=== PATIENT | male | born 1960 | race African-American/Black ===

== ENCOUNTER 2019-07-27 12:11 | Inpatient (IN) | payer OTHER ==
[~2019-07-27] VITALS: Ht 175.3 cm; Wt 83.7 kg
--- NOTE | 2019-07-27 12:28 | NUR ---
ED Nurse Note: Pt has been having flu-like symptoms: coughing with congestion, bodyache, headache x 1 week. Pt does NOT complain of fever recently. Hx of HIV. AOOx4, vital signs stable. Will cont to monitor. Addendum: 07/27/19 at 1309 by [facility] ED Nurse Note: Pt has been having flu-like symptoms: coughing without congestion, bodyache, headache x 1 week. Pt does NOT complain of fever recently. Hx of HIV. AOOx4, vital signs stable. Pain 8/10 at this time. Will cont to monitor.
--- NOTE | 2019-07-27 12:35 | NUR ---
ED Nurse Note: Patient walked into ED c/o flul cecil symptoms such as cough and increased weakness for the past week, patient is alert and oriented x4, denies any fever at time of arrival however is warm to touch, placed on a bottle blower, tachy at 105 heart rate, IV started on left ac 18 gauge, will wait for further orders
[2019-07-27 13:18] LABS: BASOPHILS % (AUTO) 1.3 % (0.0-2.0); EOSINOPHILS % (AUTO) 0.1 % (0.0-3.0); HEMATOCRIT 56.3 % (42.0-52.0); LYMPHOCYTES % (AUTO) 53.1 % (20.0-45.0); MEAN CORPUSCULAR VOLUME 89 FL (80-99); MONOCYTES % (AUTO) 6.6 % (1.0-10.0); NEUTROPHILS % (AUTO) 38.8 % (45.0-75.0); PLATELET COUNT 208 K/UL (150-450); RED BLOOD COUNT 6.33 M/UL (4.70-6.10); RED CELL DISTRIBUTION WIDTH 12.3 % (11.6-14.8); WHITE BLOOD COUNT 5.7 K/UL (4.8-10.8)
[2019-07-27 13:22] LABS: HEMOGLOBIN 18.8 G/DL (14.2-18.0)
[2019-07-27 13:28] LABS: INR 1.1 (0.9-1.1)
[2019-07-27 13:31] LABS: ANION GAP 9 mmol/L (5-15); BLOOD UREA NITROGEN 11 mg/dL (7-18); CALCIUM 8.9 MG/DL (8.5-10.1); CARBON DIOXIDE 27 MMOL/L (21-32); CHLORIDE 100 MMOL/L (98-107); CREATININE 1.4 MG/DL (0.55-1.30); POTASSIUM 3.9 MMOL/L (3.5-5.1); SODIUM 136 MMOL/L (136-145)
[2019-07-27 13:39] LABS: ALANINE AMINOTRANSFERASE 61 U/L (12-78); ALBUMIN/GLOBULIN RATIO 0.8 (1.0-2.7); ALKALINE PHOSPHATASE 77 U/L (46-116); ASPARTATE AMINO TRANSFERASE 61 U/L (15-37); BILIRUBIN,TOTAL 0.6 MG/DL (0.2-1.0)
[2019-07-27] MEDS ORDERED: Omnipaue 350mg/ml 100ml vial INJ PRN (13:45)
[2019-07-27] MEDS: Albuterol/Ipratropium 3ml neb HHN SCH ×3 (14:52→15:30)
--- NOTE | 2019-07-27 15:10 | Diagnostic Imaging Report ---
Indication: Chest pain Technique: Continuous helical transaxial imaging of the chest was obtained from the thoracic inlet to the upper abdomen during rapid intravenous contrast administration. Arterial phase of enhancement obtained. Coronal 2-D reformats were also obtained and maximum intensity projection images in multiple planes. Study obtained in a Siemens sensation [address] Automatic Exposure Control was utilized. Total Dose length Product (DLP): 659.[address] Dose Index Volume (CTDIvol): 155.4 mGy Comparison: None Findings: The pulmonary artery is well opacified and shows no filling defects. There is no adenopathy, pleural or pericardial effusions are identified. There is no aortic dissection or aneurysm identified within the chest. There are patchy groundglass densities within portions of the lower lobes and the left upper lobe, nonspecific. Consider pneumonia or infiltrative disease. Follow-up and clinical correlation recommended. There is narrowing of intervertebral discs and accompanying endplate osteophyte formation. Hypertrophied facet joints also demonstrated. Hiatal hernia is noted. Visualized part of the upper abdomen is unremarkable. IMPRESSION: No evidence of pulmonary embolus, aortic dissection or aneurysm. Patchy bilateral infiltrates. Consider pneumonia. Correlate clinically Hiatal hernia Degenerative changes of the spine. [facility] has communicated the preliminary results to the Emergency Department. Their findings are largely concordant with this report. The CT scanner at [facility] is accredited by the [employer] and the scans are performed using dose optimization techniques as appropriate to a performed exam including Automatic Exposure control.
[2019-07-27] MEDS ORDERED: Azithromycin 250mg tab ORAL ONE (15:30)
[2019-07-27] MEDS ORDERED: guaiFENesin w/Codeine 5ml Liq ud ORAL PRN (15:30)
[2019-07-27] MEDS ORDERED: cefTRIAXone 1 GM in NS 55 ML IVPB ONE (15:30)
--- NOTE | 2019-07-27 15:30 | Emergency Room Report ---
History of Present Illness General Chief Complaint: Flu Like Symptoms Source: Patient (Nazanin Cabrera) Present Illness HPI 59-year-old male who is a daily tobacco smoker with no other past medical history here complaining of 1 week of cough and congestion and 2 days of worsening cough as well as right-sided chest pain. Patient complains of minimal shortness of breath and wheezing. Denies pain radiation, palpitation, dizziness and headache. Denies blurred vision. Has not taken medication for symptom relief. Denies phlegm production. Complains of 2 days of fever and chills. Denies abdominal pain, nausea vomiting, urinary symptoms. Patient first appears to have normal vital signs however based on the EKG finding patient was moved to observation. Temperature was later raised 200 F. Denies recent travel, sick contacts. Denies drug use. (Nazanin Cabrera) Allergies: Uncoded Allergies: eggs (Allergy, Intermediate, 07/27/19) SHELLFISH (Allergy, Unknown, 07/27/19) Patient History Past Medical History: see triage record Past Surgical History: unable to obtain Pertinent Family History: none Social History: Reports: smoking Immunizations: UTD Reviewed Nursing Documentation: PMH: Agreed; PSxH: Agreed (Nazanin Cabrera) Nursing Documentation-PMH Past Medical History: No History, Except For (Nazanin Cabrera) Review of Systems All Other Systems: negative except mentioned in HPI (Nazanin Cabrera) Physical Exam Vital Signs Date Time Temp Pulse Resp B/P (MAP) Pulse Ox O2 Delivery O2 Flow Rate FiO2 07/27/19 12:23 98.4 96 19 133/81 (98) 96 Room Air 07/27/19 14:49 21 Sp02 EP Interpretation: reviewed, normal General Appearance: no apparent distress, alert, GCS 15, non-toxic Head: normocephalic, atraumatic Eyes: bilateral eye normal inspection, bilateral eye PERRL ENT: hearing grossly normal, normal pharynx, no angioedema, normal voice Neck: full range of motion, supple, supple/symm/no masses Respiratory: chest non-tender, lungs clear, normal breath sounds, no rhonchi, no respiratory distress, no retraction, no wheezing, speaking full sentences Cardiovascular #1: regular rate, rhythm, no edema, no murmur Gastrointestinal: normal bowel sounds, non tender, soft Genitourinary: no CVA tenderness Musculoskeletal: normal inspection, back normal, digits/nails normal, gait/ station normal, no calf tenderness Neurologic: alert, oriented x3, responsive, motor strength/tone normal, sensory intact, speech normal Psychiatric: judgement/insight normal, memory normal, mood/affect normal, no suicidal/homicidal ideation Skin: no rash Lymphatic: no adenopathy (Nazanin Cabrera) Medical Decision Making PA Attestation All my diagnosis and treatment plans were reviewed ad discussed with my supervising physician Dr. Wong (Nazanin Cabrera) Diagnostic Impression: Primary Impression: Atypical pneumonia ER Course 59-year-old male who is a daily tobacco smoker with no other past medical history here complaining of 1 week of cough and congestion and 2 days of worsening cough as well as right-sided chest pain. Patient complains of minimal shortness of breath and wheezing. Denies pain radiation, palpitation, dizziness and headache. Denies blurred vision. Has not taken medication for symptom relief. Denies phlegm production. Complains of 2 days of fever and chills. Denies abdominal pain, nausea vomiting, urinary symptoms. Patient first appears to have normal vital signs however based on the EKG finding patient was moved to observation. Temperature was later raised 200 F. Denies recent travel, sick contacts. Denies drug use. Ddx considered but are not limited to: bronchitis, PNA, URI viral, bacterial bronchitis, MD, COPD Vital signs: are WNL, pt. is febrile H&PE are most consistent with: Atypical pneumonia ORDERS: Chest pain order set, sepsis work-up ED INTERVENTIONS: Rocephin, azithromycin, Robitussin with codeine Patient was admited with diagnosis of atypical pneumonia to Dr. Temple under supervision of Dr.: Ap pt stable at time of admission (Nazanin Cabrera) ER Course Please see above note. Patient examined by me. CTA with no PE. Ground glass - most likely atypical pneumonia. Adding BC and lactic acid. Antibiotics ordered. Patient admitted for continued treatment. (Dilshad Agudelo MD) EKG Diagnostic Results Rhythm: NSR ST Segments: other - ST changes in ant leads ASA given to the pt in ED: No (Nazanin Cabrera) Chest X-Ray Diagnostic Results Chest X-Ray Diagnostic Results : Chest X-Ray Ordered: Yes # of Views/Limited/Complete: 1 View Indication: Chest Pain EP Interpretation: Yes PA Xray: Interpretation reviewed, by supervising MD, and agrees with findings. Interpretation: other - effusion and infiltrates LLL Impression: Other - PNA Electronically Signed by: Nazanin Benjamin PA-C (Nazanin Cabrera) CT/MRI/US Diagnostic Results CT/MRI/US Diagnostic Results : Imaging Test Ordered: CTA chest Impression CTA CHEST With Contrast: Scattered groundglass densities in bilateral lung, likely representing pneumonia. No evidence of pulmonary embolism. Possible small hiatal hernia. Mild multilevel degenerative changes throughout the visualized spine. (Nazanin Cabrera) Last Vital Signs Date Time Temp Pulse Resp B/P (MAP) Pulse Ox O2 Delivery O2 Flow Rate FiO2 07/27/19 14:49 101 28 96 Room Air 21 07/27/19 12:23 98.4 133/81 (98) (Nazanin Cabrera) Last Vital Signs Date Time Temp Pulse Resp B/P (MAP) Pulse Ox O2 Delivery O2 Flow Rate FiO2 07/27/19 20:00 98.9 100 19 134/90 (105) 94 07/27/19 19:45 Room Air 21 Status: improved (Dilshad Agudelo MD) Disposition: ADMITTED INPATIENT Condition: Serious Referrals: [facility],REFERRING (PCP) Nazanin Cabrera Jul 27, 2019 15:30 Dilshad Agudelo MD Jul 27, 2019 15:45
--- NOTE | 2019-07-27 15:45 | NUR ---
ED Nurse Note: Patient oral temp is 100.3, CASSIE Back aware and notified
[2019-07-27 15:53] LABS: APPEARANCE,URINE CLEAR; BILIRUBIN, URINE NEGATIVE (NEGATIVE); COLOR,URINE PALE YELLOW; GLUCOSE, URINE (UA) NEGATIVE (NEGATIVE); KETONES,URINE NEGATIVE (NEGATIVE); LEUKOCYTE ESTERASE ,URINE NEGATIVE (NEGATIVE); NITRITE,URINE NEGATIVE (NEGATIVE); PH,URINE 5 (4.5-8.0); PROTEIN,URINE 3+ (NEGATIVE); UROBILINOGEN,URINE NORMAL MG/DL (0.0-1.0)
[2019-07-27 15:54] VITALS: BP 147/81
[2019-07-27 16:30] VITALS: BP 134/73
--- NOTE | 2019-07-27 16:45 | NUR ---
ED Nurse Note: Patient in bed complaining of no distress at this time, awaiting room assignment
--- NOTE | 2019-07-27 17:15 | NUR ---
TRANSFER TO FLOOR: Patient transferred to Telemetry as ordered, per Report given to DEBORAH Hernandez
--- NOTE | 2019-07-27 17:30 | NUR ---
NURSE NOTES: Report received from DEBORAH Huang. Pt. came on the floor. Able to walk to the bed steady. radiation monitor applied. Belongings checked signed and filed. IV flushed and SL. Oriented to room. Bed on lowest position, side rails upx2. Brakes engaged. Call light within easy reach.
[2019-07-27 18:00] VITALS: BP 117/79
--- NOTE | 2019-07-27 18:32 | NUR ---
CASE MANAGEMENT: INITIAL REVIEW 59 YO M PRESENTED TO OUR ED FROM HOME CC: FLU LIKE SYMPTOMS PMHx: HIV DX: PNA T 100.3 HR 101 RR 28 B/P 147/81 SATS 96% ON RA LABS: HGB 18.8 HCT 56.3 CR 1.4 AST 61 UTOX (+) ABGs PCO2 30.6 PO2 64.9 HCO3 20.6 O2 SAT 93 IS: DUO NEB HH X3 CEFTRIAXONE IV X1 AZITHROMYCIN PO X1 TYLENOL PO X1 QUAIFENESIN/CODEINE PO Q6H PRN PATIENT ADMITTED TO TELE 07/27/2019 @ 1811 DCP: PATIENT TO BE DISCHARGED TO HOME ONCE MEDICALLY CLEARED. PLAN OF CARE: VENOUS DUPLEX
[2019-07-27] MEDS ORDERED: Phytonadione 10 MG in D5W 55 ML IVPB ONE (18:45)
[2019-07-27] MEDS ORDERED: Albuterol/Ipratropium 3ml neb HHN PRN (18:45)
[2019-07-27] MEDS ORDERED: Miralax 17gm pkt ORAL PRN (18:45)
--- NOTE | 2019-07-27 19:20 | NUR ---
HAND-OFF: Report given to DEBORAH Alonso. Pt. in stable condition. Plan of care endorsed.
--- NOTE | 2019-07-27 19:30 | NUR ---
NURSE NOTES: Received patient from Ruben CABRERA. Patient on room air, no signs of respiratory distress. Bed in low position, locked, call light within reach.
[2019-07-27] MEDS: D5NS 1,000 ML IV SCH (19:57)
[2019-07-27 20:00] VITALS: BP 134/90
[2019-07-27] MEDS ORDERED: Vancomycin 1.5gm/NS Premix IVPB ONE (20:00)
--- NOTE | 2019-07-27 20:00 | NUR ---
NURSE NOTES: Contacted Dr. Salgado regarding orders for Vitamin K and heparin. No response.
[2019-07-27] MEDS: Vancomycin 750mg/NS 275ml IVPB SCH ×2 (20:40)
[2019-07-27] MEDS: Cefepime HCl 2 GM in D5W 110 ML IV SCH (21:52)
--- NOTE | 2019-07-27 22:00 | NUR ---
NURSE NOTES: Notified by pharmacy that they also contacted Dr. Salgado for clarification on the Vitamin K and Heparin that was ordered. They also did not receive a response.
[2019-07-27] MEDS ORDERED: Vancomycin 1 GM in D5W 275 ML IV SCH (23:00)
[2019-07-28] VITALS: BP 131/87
[2019-07-28 04:00] VITALS: BP 129/79
[2019-07-28] MEDS: D5NS 1,000 ML IV SCH ×3 (04:57→18:08)
[2019-07-28] MEDS: Morphine Sulfate 2mg/ml Inj(IV/IM USE ONLY) IVP PRN ×2 (04:57→08:58)
--- NOTE | 2019-07-28 05:00 | NUR ---
NURSE NOTES: Notified Dr. Salgado and Dr. Temple that patient is complaining of numbness on the right upper thigh. Morphine 2mg ivp was given for the discomfort.
--- NOTE | 2019-07-28 07:04 | NUR ---
NURSE NOTES: Received call back from Dr. Salgado, no orders. Instructed to just wait for the scheduled venous duplex results to come back.
--- NOTE | 2019-07-28 07:36 | NUR ---
HAND-OFF: Report given to Alida CABRERA.
--- NOTE | 2019-07-28 07:38 | NUR ---
NURSE NOTES: Report received from DEBORAH Alonso. Pt shows no signs of distress. A+Ox4, denies pain/SOB. Respirations are even and unlabored on room air. IV site is intact and running fluids @ prescribed rate. Bed is at lowest position, brakes engaged, siderails x2, bed alarm on, and call light within reach. Pt is in stable condition at this time; will continue to monitor.
[2019-07-28 07:39] LABS: HEMOGLOBIN 17.1 G/DL (14.2-18.0); MEAN CORPUSCULAR VOLUME 87 FL (80-99); PLATELET COUNT 177 K/UL (150-450); RED BLOOD COUNT 5.64 M/UL (4.70-6.10); RED CELL DISTRIBUTION WIDTH 12.3 % (11.6-14.8); WHITE BLOOD COUNT 4.4 K/UL (4.8-10.8)
[2019-07-28 08:00] VITALS: BP 132/79
[2019-07-28 08:11] LABS: ALANINE AMINOTRANSFERASE 59 U/L (12-78); ALBUMIN 3.1 G/DL (3.4-5.0); ALBUMIN/GLOBULIN RATIO 0.7 (1.0-2.7); ALKALINE PHOSPHATASE 63 U/L (46-116); AMYLASE 149 U/L (25-115); ANION GAP 10 mmol/L (5-15); ASPARTATE AMINO TRANSFERASE 65 U/L (15-37); BILIRUBIN,TOTAL 0.4 MG/DL (0.2-1.0); BLOOD UREA NITROGEN 9 mg/dL (7-18); CALCIUM 8.1 MG/DL (8.5-10.1); CARBON DIOXIDE 23 MMOL/L (21-32); CHLORIDE 103 MMOL/L (98-107); CREATININE 1.2 MG/DL (0.55-1.30); PHOSPHORUS 3.7 MG/DL (2.5-4.9); POTASSIUM 3.4 MMOL/L (3.5-5.1); SODIUM 136 MMOL/L (136-145)
[2019-07-28] MEDS: Vancomycin 750mg/NS 275ml IVPB SCH ×4 (08:38→20:02)
[2019-07-28] MEDS: Heparin 5000 units/ml inj SUBQ SCH ×2 (08:57→21:00)
[2019-07-28] MEDS: Cefepime HCl 2 GM in D5W 110 ML IV SCH ×2 (08:58→21:49)
--- NOTE | 2019-07-28 09:41 | NUR ---
*-* NO INSURANCE INFORMATION IN THE BAR UNABLE TO SEND CLINICALS OR REVIEWS *-*
--- NOTE | 2019-07-28 10:26 | NUR ---
NURSE NOTES: Spoke with Dr. Salgado abut his order for Vitamin K. He said to dc it. Noted and carried out.
--- NOTE | 2019-07-28 10:27 | Consultation ---
Consult Note Consult Note HPI: 59yo gentleman with no PMH presents with one week of dry cough, chills, body aches, congestion, watery diarrhea. No night sweats. No weight loss. Pt took ampicillin for 2 days that he got from a friend and did not improve. Unsure of sick contacts. 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 Denies recent travel. Lives in [place]. No pets. ROS: per HPI PMH: per HPI SHx: tobacco use. EtOh use marijuana use. denies other drug use FHx: noncontributory Meds: reviewed All: shellfish, eggs PE: VS: afebrile. RA. Gen: NAD HEENT: anicteric sclera CV: RRR Resp: coarse crackles diffusely Abd: soft. no TTP. slightly distended. Ext: no LE edema Labs: WBC 4.4 Cr 1.2 Assessment/Plan: 59yo gentleman with PMH tobacco and marijuana abuse, also found to have PCP, amphetamine positive presents with one week of fever, chills , cough, sob, diarrhea. ID consulted for recommendation Tmax 100.3 No leukocytosis Lactate 1.6 CAP? 07/27 flu swab negative 07/27 CTPA: No evidence of pulmonary embolus, aortic dissection or aneurysm. Patchy bilateral infiltrates. Consider pneumonia. Correlate clinically. Hiatal hernia. Degenerative changes of the spine. 07/27 UA negative r/o bacteremia 06/26 BCx: P amphetamine, marijuana, PCP positive tobacco use Plan: cefepime and vancomycin #1 continue azithromycin #2 SP Ceftriaxone 07/27 f/u bcx trend temp, CBC MRSA screen TTE Thank you for this consult. [facility] will continue to follow the patient with you. Olman Torres MD Jul 28, 2019 10:27
[2019-07-28 12:00] VITALS: BP 132/78
--- NOTE | 2019-07-28 12:04 | Consultation ---
History of Present Illness General Date patient seen: Jul 28, 2019 Chief Complaint: Flu Like Symptoms Present Illness HPI 59-year-old male with hx of tobacco abuse presented to ER with CC of 1 week of cough and congestion and right-sided chest pain. Patient had l shortness of breath and wheezing on presentation. He also had 2 days of fever and chills. Pt had a CTA of chest which ruled out a PE but confirmed the interstitial pneumonia. Allergies: Uncoded Allergies: eggs (Allergy, Intermediate, 07/27/19) SHELLFISH (Allergy, Unknown, 07/27/19) Patient History Healthcare decision maker Resuscitation status Full Code Advanced Directive on File Past Medical/Surgical History Past Medical/Surgical History: (1) Tobacco abuse Review of Systems All Other Systems: negative except mentioned in HPI Physical Exam General Appearance: WD/WN Lines, tubes and drains: peripheral HEENT: normocephalic, atraumatic Neck: non-tender, normal alignment, supple Respiratory/Chest: chest wall non-tender, lungs clear Breasts: no masses Cardiovascular/Chest: normal peripheral pulses Abdomen: normal bowel sounds Genitourinary/Rectal: normal genital exam Extremities: normal range of motion Skin Exam: normal pigmentation Neurologic: 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 case 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 II-XII grossly normal Last 24 Hour Vital Signs Date Time Temp Pulse Resp B/P (MAP) Pulse Ox O2 Delivery O2 Flow Rate FiO2 07/28/19 09:00 Room Air 07/28/19 08:06 102 22 95 Room Air 21 07/28/19 08:00 60 07/28/19 08:00 97.7 79 20 132/79 (96) 93 07/28/19 05:27 98.5 07/28/19 04:00 98.5 85 19 129/79 (96) 95 07/28/19 04:00 81 07/28/19 00:00 70 07/28/19 00:00 98.8 94 17 131/87 (102) 94 07/27/19 21:00 Room Air 07/27/19 20:00 98.9 100 19 134/90 (105) 94 07/27/19 20:00 98 07/27/19 19:45 106 20 96 Room Air 21 07/27/19 18:00 100.1 17 117/79 (92) 96 07/27/19 18:00 104 07/27/19 17:45 Room Air 07/27/19 17:15 99.2 108 22 128/70 96 Room Air 07/27/19 16:30 99.7 110 28 134/73 96 Room Air 21 07/27/19 16:15 99.7 07/27/19 15:54 100.3 121 28 147/81 96 Room Air 07/27/19 15:54 101 28 Room Air 07/27/19 14:49 101 28 96 Room Air 21 07/27/19 14:49 98 28 99 Room Air 21 101 28 96 07/27/19 12:23 98.4 96 19 133/81 (98) 96 Room Air Intake and Output 07/27/19 07/28/19 19:00 07:00 Intake Total 1325 ml Balance 1325 ml Intake Oral 240 ml IV Total 1085 ml # Voids 1 2 Laboratory Tests Test 07/27/19 12:51 07/27/19 13:00 07/27/19 15:30 07/27/19 16:10 Arterial Blood pH 7.447 (7.350-7.450) Arterial Blood Partial Pressure CO2 30.6 mmHg (35.0-45.0) L Arterial Blood Partial Pressure O2 64.9 mmHg (75.0-100.0) L Arterial Blood HCO3 20.6 mmol/L (22.0-26.0) L Arterial Blood Oxygen Saturation 93.0 % (95-100) L Arterial Blood Base Excess -1.9 (-2-2) Fredy Test Positive White Blood Count 5.7 K/UL (4.8-10.8) Red Blood Count 6.33 M/UL (4.70-6.10) H Hemoglobin 18.8 G/DL (14.2-18.0) *H Hematocrit 56.3 % (42.0-52.0) H Mean Corpuscular Volume 89 FL (80-99) Mean Corpuscular Hemoglobin 29.7 PG (27.0-31.0) Mean Corpuscular Hemoglobin Concent 33.4 G/DL (32.0-36.0) Red Cell Distribution Width 12.3 % (11.6-14.8) Platelet Count 208 K/UL (150-450) Mean Platelet Volume 6.2 FL (6.5-10.1) L Neutrophils (%) (Auto) 38.8 % (45.0-75.0) L Lymphocytes (%) (Auto) 53.1 % (20.0-45.0) H Monocytes (%) (Auto) 6.6 % (1.0-10.0) Eosinophils (%) (Auto) 0.1 % (0.0-3.0) Basophils (%) (Auto) 1.3 % (0.0-2.0) Prothrombin Time 11.2 SEC (9.30-11.50) Prothromb Time International Ratio 1.1 (0.9-1.1) Activated Partial Thromboplast Time 30 SEC (23-33) D-Dimer 0.55 mg/L FEU (0.00-0.49) H Sodium Level 136 MMOL/L (136-145) Potassium Level 3.9 MMOL/L (3.5-5.1) Chloride Level 100 MMOL/L (98-107) Carbon Dioxide Level 27 MMOL/L (21-32) Anion Gap 9 mmol/L (5-15) Blood Urea Nitrogen 11 mg/dL (7-18) Creatinine 1.4 MG/DL (0.55-1.30) H Estimat Glomerular Filtration Rate > 60 mL/min (>60) Glucose Level 100 MG/DL (74-106) Calcium Level 8.9 MG/DL (8.5-10.1) Total Bilirubin 0.6 MG/DL (0.2-1.0) Aspartate Amino Transf (AST/SGOT) 61 U/L (15-37) H Alanine Aminotransferase (ALT/SGPT) 61 U/L (12-78) Alkaline Phosphatase 77 U/L (46-116) Troponin I 0.006 ng/mL (0.000-0.056) Total Protein 9.1 G/DL (6.4-8.2) H Albumin 4.0 G/DL (3.4-5.0) Globulin 5.1 g/dL Albumin/Globulin Ratio 0.8 (1.0-2.7) L Urine Color Pale yellow Urine Appearance Clear Urine pH 5 (4.5-8.0) Urine Specific [place] 1.010 (1.005-1.035) Urine Protein 3+ (NEGATIVE) H Urine Glucose (UA) Negative (NEGATIVE) Urine Ketones Negative (NEGATIVE) Urine Blood 2+ (NEGATIVE) H Urine Nitrite Negative (NEGATIVE) Urine Bilirubin Negative (NEGATIVE) Urine Urobilinogen Normal MG/DL (0.0-1.0) Urine Leukocyte Esterase Negative (NEGATIVE) Urine RBC 2-4 /HPF (0 - 0) H Urine WBC 0 /HPF (0 - 0) Urine Squamous Epithelial Cells Occasional /LPF Urine Bacteria Few /HPF (NONE) Urine Mucus Moderate /LPF (NONE/OCC) H Urine Opiates Screen Negative (NEGATIVE) Urine Barbiturates Screen Negative (NEGATIVE) Phencyclidine (PCP) Screen Positive (NEGATIVE) H Urine Amphetamines Screen Positive (NEGATIVE) H Urine Benzodiazepines Screen Negative (NEGATIVE) Urine Cocaine Screen Negative (NEGATIVE) Urine Marijuana (THC) Screen Positive (NEGATIVE) H Lactic Acid Level 1.60 mmol/L (0.4-2.0) Test 07/28/19 06:23 White Blood Count 4.4 K/UL (4.8-10.8) L Red Blood Count 5.64 M/UL (4.70-6.10) Hemoglobin 17.1 G/DL (14.2-18.0) Hematocrit 49.0 % (42.0-52.0) Mean Corpuscular Volume 87 FL (80-99) Mean Corpuscular Hemoglobin 30.4 PG (27.0-31.0) Mean Corpuscular Hemoglobin Concent 35.0 G/DL (32.0-36.0) Red Cell Distribution Width 12.3 % (11.6-14.8) Platelet Count 177 K/UL (150-450) Mean Platelet Volume 6.1 FL (6.5-10.1) L Neutrophils (%) (Auto) % (45.0-75.0) Lymphocytes (%) (Auto) % (20.0-45.0) Monocytes (%) (Auto) % (1.0-10.0) Eosinophils (%) (Auto) % (0.0-3.0) Basophils (%) (Auto) % (0.0-2.0) Differential Total Cells Counted 100 Neutrophils % (Manual) 21 % (45-75) L Lymphocytes % (Manual) 67 % (20-45) H Monocytes % (Manual) 12 % (1-10) H Eosinophils % (Manual) 0 % (0-3) Basophils % (Manual) 0 % (0-2) Band Neutrophils 0 % (0-8) Platelet Estimate Adequate Platelet Morphology Normal Prothrombin Time 10.7 SEC (9.30-11.50) Prothromb Time International Ratio 1.0 (0.9-1.1) Activated Partial Thromboplast Time 31 SEC (23-33) Sodium Level 136 MMOL/L (136-145) Potassium Level 3.4 MMOL/L (3.5-5.1) L Chloride Level 103 MMOL/L (98-107) Carbon Dioxide Level 23 MMOL/L (21-32) Anion Gap 10 mmol/L (5-15) Blood Urea Nitrogen 9 mg/dL (7-18) Creatinine 1.2 MG/DL (0.55-1.30) Estimat Glomerular Filtration Rate > 60 mL/min (>60) Glucose Level 126 MG/DL (74-106) H Calcium Level 8.1 MG/DL (8.5-10.1) L Phosphorus Level 3.7 MG/DL (2.5-4.9) Total Bilirubin 0.4 MG/DL (0.2-1.0) Aspartate Amino Transf (AST/SGOT) 65 U/L (15-37) H Alanine Aminotransferase (ALT/SGPT) 59 U/L (12-78) Alkaline Phosphatase 63 U/L (46-116) Total Protein 7.6 G/DL (6.4-8.2) Albumin 3.1 G/DL (3.4-5.0) L Globulin 4.5 g/dL Albumin/Globulin Ratio 0.7 (1.0-2.7) L Amylase Level 149 U/L (25-115) H Lipase 202 U/L (73-393) Microbiology Date/Time Source Procedure Growth Status 07/27/19 14:40 Nasal Nares - Final Complete 07/27/19 14:40 Nasal Nares - Final Complete Height (Feet): 5 Height (Inches): 9.00 Weight (Pounds): 180 Medications Current Medications Medications (Trade) Dose Ordered Sig/Anthony Route PRN Reason Start Time Stop Time Status Last Admin Dose Admin Acetaminophen (Tylenol) 650 mg Q4H PRN ORAL fever (temp>100.5F) 07/27/19 18:45 08/26/19 18:44 07/27/19 20:49 Albuterol/ Ipratropium (Albuterol/ Ipratropium) 3 ml Q4H PRN HHN Shortness of Breath 07/27/19 18:45 08/01/19 18:44 Cefepime HCl 2 gm/ Dextrose 110 ml @ 220 mls/hr EVERY 12 HOURS IV 07/27/19 21:00 08/03/19 20:59 07/28/19 08:58 Dextrose (Dextrose 50%) 25 ml Q30M PRN IV Hypoglycemia 07/27/19 18:45 08/26/19 18:44 Dextrose (Dextrose 50%) 50 ml Q30M PRN IV Hypoglycemia 07/27/19 18:45 08/26/19 18:44 Dextrose/Sodium Chloride 1,000 ml @ 100 mls/hr Q10H IV 07/27/19 18:45 08/26/19 18:44 07/28/19 04:57 Diphenhydramine HCl (Benadryl) 25 mg Q6H PRN ORAL Itching/Pruritis 07/27/19 18:45 08/26/19 18:44 Heparin Sodium (Porcine) (Heparin 5000 units/ml) 5,000 units EVERY 12 HOURS SUBQ 07/28/19 09:00 08/27/19 08:59 07/28/19 08:57 Iohexol (Omnipaque) 100 mg NOW PRN INJ Radiology Procedure 07/27/19 13:45 07/29/19 13:38 Morphine Sulfate (Morphine Sulfate) 2 mg Q4H PRN IVP Severe Pain (Pain Scale 7-10) 07/27/19 18:45 08/03/19 18:44 07/28/19 08:58 Ondansetron HCl (Zofran) 4 mg Q6H PRN IVP Nausea & Vomiting 07/27/19 18:45 08/26/19 18:44 Polyethylene Glycol (Miralax) 17 gm DAILYPRN PRN ORAL Constipation 07/27/19 18:45 08/26/19 18:44 Temazepam (Restoril) 15 mg HSPRN PRN ORAL Insomnia 07/27/19 18:45 08/03/19 18:44 Vancomycin HCl (Vanco rx to dose) 1 ea DAILY PRN MISC PER RX PROTOCOL 07/27/19 18:45 08/26/19 18:44 Vancomycin HCl 750 mg/Sodium Chloride 275 ml @ 183.333 mls/hr Q12HR@0800,2000 IVPB 07/28/19 08:00 08/02/19 07:59 07/28/19 08:38 Assessment/Plan Problem List: (1) Atypical pneumonia ICD Codes: J18.9 - Pneumonia, unspecified organism SNOMED: 902876193 (2) Tobacco abuse ICD Codes: Z72.0 - Tobacco use SNOMED: 588975662 Assessment/Plan: respiratory treatment check sputum iv abx repeat cxr in a few days. Elle Salgado MD Jul 28, 2019 12:04
--- NOTE | 2019-07-28 12:45 | GI Initial Consult Note ---
History of Present Illness General Date patient seen: Jul 28, 2019 Time patient seen: 12:41 Reason for Hospitalization: Flu Like Symptoms Referring physician: AURA DING Reason for Consultation: NAUSEA Present Illness HPI 59-year-old male who is a daily tobacco smoker with no other past medical history here complaining of 1 week of cough and congestion and 2 days of worsening cough as well as right-sided chest pain. Patient complains of minimal shortness of breath and wheezing. Denies pain radiation, palpitation, dizziness and headache. Denies blurred vision. Has not taken medication for symptom relief. Denies phlegm production. Complains of 2 days of fever and chills. Denies abdominal pain, nausea vomiting, urinary symptoms. Patient first appears to have normal vital signs however based on the EKG finding patient was moved to observation. Denies recent travel, sick contacts. Denies drug use. GI consulted for reported nausea. Patient seen, awake alert oriented x4. At time of evaluation, no apparent distress. Patient denied any abdominal pain. Patient denied any nausea vomiting. Patient stated he was admitted here for shortness of breath with complaint of cough and congestion. Patient is a daily tobacco user greater than 10 years. Labs reviewed; no anemia, no leukocytosis, mild AST elevation at 65. Urine toxicity positive for phencyclidine, amphetamines and marijuana. Patient stated he had a colonoscopy approximately 3 years ago with unremarkable findings. Med list reviewed/reconciled: Yes Allergies: Uncoded Allergies: eggs (Allergy, Intermediate, 07/27/19) SHELLFISH (Allergy, Unknown, 07/27/19) Patient History History Provided By: Patient, Medical Record [facility] Narrative Patient History Past Medical History: see triage record Past Surgical History: unable to obtain Pertinent Family History: none Social History: Reports: smoking Immunizations: UTD Social History: Reports: alcohol use, drug use Review of Systems All Other Systems: negative except mentioned in HPI Physical Exam Vital Signs Date Time Temp Pulse Resp B/P (MAP) Pulse Ox O2 Delivery O2 Flow Rate FiO2 07/27/19 12:23 98.4 96 19 133/81 (98) 96 Room Air 07/27/19 14:49 21 Sp02 EP Interpretation: reviewed, normal Labs Laboratory Tests Test 07/27/19 12:51 07/27/19 13:00 07/27/19 15:30 07/27/19 16:10 Arterial Blood pH 7.447 (7.350-7.450) Arterial Blood Partial Pressure CO2 30.6 mmHg (35.0-45.0) L Arterial Blood Partial Pressure O2 64.9 mmHg (75.0-100.0) L Arterial Blood HCO3 20.6 mmol/L (22.0-26.0) L Arterial Blood Oxygen Saturation 93.0 % (95-100) L Arterial Blood Base Excess -1.9 (-2-2) Fredy Test Positive White Blood Count 5.7 K/UL (4.8-10.8) Red Blood Count 6.33 M/UL (4.70-6.10) H Hemoglobin 18.8 G/DL (14.2-18.0) *H Hematocrit 56.3 % (42.0-52.0) H Mean Corpuscular Volume 89 FL (80-99) Mean Corpuscular Hemoglobin 29.7 PG (27.0-31.0) Mean Corpuscular Hemoglobin Concent 33.4 G/DL (32.0-36.0) Red Cell Distribution Width 12.3 % (11.6-14.8) Platelet Count 208 K/UL (150-450) Mean Platelet Volume 6.2 FL (6.5-10.1) L Neutrophils (%) (Auto) 38.8 % (45.0-75.0) L Lymphocytes (%) (Auto) 53.1 % (20.0-45.0) H Monocytes (%) (Auto) 6.6 % (1.0-10.0) Eosinophils (%) (Auto) 0.1 % (0.0-3.0) Basophils (%) (Auto) 1.3 % (0.0-2.0) Prothrombin Time 11.2 SEC (9.30-11.50) Prothromb Time International Ratio 1.1 (0.9-1.1) Activated Partial Thromboplast Time 30 SEC (23-33) D-Dimer 0.55 mg/L FEU (0.00-0.49) H Sodium Level 136 MMOL/L (136-145) Potassium Level 3.9 MMOL/L (3.5-5.1) Chloride Level 100 MMOL/L (98-107) Carbon Dioxide Level 27 MMOL/L (21-32) Anion Gap 9 mmol/L (5-15) Blood Urea Nitrogen 11 mg/dL (7-18) Creatinine 1.4 MG/DL (0.55-1.30) H Estimat Glomerular Filtration Rate > 60 mL/min (>60) Glucose Level 100 MG/DL (74-106) Calcium Level 8.9 MG/DL (8.5-10.1) Total Bilirubin 0.6 MG/DL (0.2-1.0) Aspartate Amino Transf (AST/SGOT) 61 U/L (15-37) H Alanine Aminotransferase (ALT/SGPT) 61 U/L (12-78) Alkaline Phosphatase 77 U/L (46-116) Troponin I 0.006 ng/mL (0.000-0.056) Total Protein 9.1 G/DL (6.4-8.2) H Albumin 4.0 G/DL (3.4-5.0) Globulin 5.1 g/dL Albumin/Globulin Ratio 0.8 (1.0-2.7) L Urine Color Pale yellow Urine Appearance Clear Urine pH 5 (4.5-8.0) Urine Specific [place] 1.010 (1.005-1.035) Urine Protein 3+ (NEGATIVE) H Urine Glucose (UA) Negative (NEGATIVE) Urine Ketones Negative (NEGATIVE) Urine Blood 2+ (NEGATIVE) H Urine Nitrite Negative (NEGATIVE) Urine Bilirubin Negative (NEGATIVE) Urine Urobilinogen Normal MG/DL (0.0-1.0) Urine Leukocyte Esterase Negative (NEGATIVE) Urine RBC 2-4 /HPF (0 - 0) H Urine WBC 0 /HPF (0 - 0) Urine Squamous Epithelial Cells Occasional /LPF Urine Bacteria Few /HPF (NONE) Urine Mucus Moderate /LPF (NONE/OCC) H Urine Opiates Screen Negative (NEGATIVE) Urine Barbiturates Screen Negative (NEGATIVE) Phencyclidine (PCP) Screen Positive (NEGATIVE) H Urine Amphetamines Screen Positive (NEGATIVE) H Urine Benzodiazepines Screen Negative (NEGATIVE) Urine Cocaine Screen Negative (NEGATIVE) Urine Marijuana (THC) Screen Positive (NEGATIVE) H Lactic Acid Level 1.60 mmol/L (0.4-2.0) Test 07/28/19 06:23 White Blood Count 4.4 K/UL (4.8-10.8) L Red Blood Count 5.64 M/UL (4.70-6.10) Hemoglobin 17.1 G/DL (14.2-18.0) Hematocrit 49.0 % (42.0-52.0) Mean Corpuscular Volume 87 FL (80-99) Mean Corpuscular Hemoglobin 30.4 PG (27.0-31.0) Mean Corpuscular Hemoglobin Concent 35.0 G/DL (32.0-36.0) Red Cell Distribution Width 12.3 % (11.6-14.8) Platelet Count 177 K/UL (150-450) Mean Platelet Volume 6.1 FL (6.5-10.1) L Neutrophils (%) (Auto) % (45.0-75.0) Lymphocytes (%) (Auto) % (20.0-45.0) Monocytes (%) (Auto) % (1.0-10.0) Eosinophils (%) (Auto) % (0.0-3.0) Basophils (%) (Auto) % (0.0-2.0) Differential Total Cells Counted 100 Neutrophils % (Manual) 21 % (45-75) L Lymphocytes % (Manual) 67 % (20-45) H Monocytes % (Manual) 12 % (1-10) H Eosinophils % (Manual) 0 % (0-3) Basophils % (Manual) 0 % (0-2) Band Neutrophils 0 % (0-8) Platelet Estimate Adequate Platelet Morphology Normal Prothrombin Time 10.7 SEC (9.30-11.50) Prothromb Time International Ratio 1.0 (0.9-1.1) Activated Partial Thromboplast Time 31 SEC (23-33) Sodium Level 136 MMOL/L (136-145) Potassium Level 3.4 MMOL/L (3.5-5.1) L Chloride Level 103 MMOL/L (98-107) Carbon Dioxide Level 23 MMOL/L (21-32) Anion Gap 10 mmol/L (5-15) Blood Urea Nitrogen 9 mg/dL (7-18) Creatinine 1.2 MG/DL (0.55-1.30) Estimat Glomerular Filtration Rate > 60 mL/min (>60) Glucose Level 126 MG/DL (74-106) H Calcium Level 8.1 MG/DL (8.5-10.1) L Phosphorus Level 3.7 MG/DL (2.5-4.9) Total Bilirubin 0.4 MG/DL (0.2-1.0) Aspartate Amino Transf (AST/SGOT) 65 U/L (15-37) H Alanine Aminotransferase (ALT/SGPT) 59 U/L (12-78) Alkaline Phosphatase 63 U/L (46-116) Total Protein 7.6 G/DL (6.4-8.2) Albumin 3.1 G/DL (3.4-5.0) L Globulin 4.5 g/dL Albumin/Globulin Ratio 0.7 (1.0-2.7) L Amylase Level 149 U/L (25-115) H Lipase 202 U/L (73-393) General Appearance: well appearing, no apparent distress, alert Head: normocephalic EENT: PERRL/EOMI, normal ENT inspection Neck: supple Respiratory: normal breath sounds, no respiratory distress Cardiovascular: normal rate Gastrointestinal: normal inspection, non tender, soft, normal bowel sounds, non -distended Rectal: deferred Genitourinary: deferred Musculoskeletal: normal inspection, back normal Neurologic: normal inspection, alert, oriented x3, responsive Psychiatric: normal inspection, judgement/insight normal, memory normal Skin: normal inspection, normal color, no rash, warm/dry, palpation normal, well hydrated Lymphatic: normal inspection, no adenopathy Current Medications Current Medications Medications (Trade) Dose Ordered Sig/Anthony Route PRN Reason Start Time Stop Time Status Last Admin Dose Admin Acetaminophen (Tylenol) 650 mg Q4H PRN ORAL fever (temp>100.5F) 07/27/19 18:45 08/26/19 18:44 07/27/19 20:49 Albuterol/ Ipratropium (Albuterol/ Ipratropium) 3 ml Q4H PRN HHN Shortness of Breath 07/27/19 18:45 08/01/19 18:44 Azithromycin (Zithromax) 250 mg DAILY ORAL 07/29/19 09:00 08/01/19 09:01 Cefepime HCl 2 gm/ Dextrose 110 ml @ 220 mls/hr EVERY 12 HOURS IV 07/27/19 21:00 08/03/19 20:59 07/28/19 08:58 Dextrose (Dextrose 50%) 25 ml Q30M PRN IV Hypoglycemia 07/27/19 18:45 08/26/19 18:44 Dextrose (Dextrose 50%) 50 ml Q30M PRN IV Hypoglycemia 07/27/19 18:45 08/26/19 18:44 Dextrose/Sodium Chloride 1,000 ml @ 100 mls/hr Q10H IV 07/27/19 18:45 08/26/19 18:44 07/28/19 04:57 Diphenhydramine HCl (Benadryl) 25 mg Q6H PRN ORAL Itching/Pruritis 07/27/19 18:45 08/26/19 18:44 Heparin Sodium (Porcine) (Heparin 5000 units/ml) 5,000 units EVERY 12 HOURS SUBQ 07/28/19 09:00 08/27/19 08:59 07/28/19 08:57 Iohexol (Omnipaque) 100 mg NOW PRN INJ Radiology Procedure 07/27/19 13:45 07/29/19 13:38 Morphine Sulfate (Morphine Sulfate) 2 mg Q4H PRN IVP Severe Pain (Pain Scale 7-10) 07/27/19 18:45 08/03/19 18:44 07/28/19 08:58 Ondansetron HCl (Zofran) 4 mg Q6H PRN IVP Nausea & Vomiting 07/27/19 18:45 08/26/19 18:44 Polyethylene Glycol (Miralax) 17 gm DAILYPRN PRN ORAL Constipation 07/27/19 18:45 08/26/19 18:44 Temazepam (Restoril) 15 mg HSPRN PRN ORAL Insomnia 07/27/19 18:45 08/03/19 18:44 Vancomycin HCl (Vanco rx to dose) 1 ea DAILY PRN MISC PER RX PROTOCOL 07/27/19 18:45 08/26/19 18:44 Vancomycin HCl 750 mg/Sodium Chloride 275 ml @ 183.333 mls/hr Q12HR@0800,2000 IVPB 07/28/19 08:00 08/02/19 07:59 07/28/19 08:38 GI: Plan Problems: (1) Drug abuse Plan Urine toxicity positive for phencyclidine, amphetamines and marijuana History of colonoscopy x3 years with unremarkable findings No plans for any GI procedures at this time Symptomatic treatment Advance diet as tolerated Zofran as needed PPI IV p.o. hydration Follow labs Discussed with Dr. Ahumada. Thank you for this patient referral, we will follow. The patient was seen and examined at bedside and all new and available data was reviewed in the patients chart. I agree with the above findings, impression and plan. (Patient seen earlier today. Signature stamp does not reflect patient encounter time.). - MD [facility] [employer] Jul 28, 2019 12:45
--- NOTE | 2019-07-28 14:02 | Diagnostic Imaging Report ---
Indication: Chest pain Comparison: None A single view chest radiograph was obtained. Findings: Cardiomediastinal appearance is within normal limits for age. The lungs are clear. Pulmonary vascularity is appropriate. The diaphragmatic contour is smooth and costophrenic angles are sharp. No pleural effusions are identified. The bones are unremarkable. Impression: No acute findings
[2019-07-28 16:00] VITALS: BP 144/86
--- NOTE | 2019-07-28 16:31 | NUR ---
*-* INSURANCE *-* ALL CLINICALS AND REVIEWS HAVE BEEN FAXED TO: [facility] Ref#[id number] CM: Mykel #[phone]
--- NOTE | 2019-07-28 17:00 | History and Physical Report ---
DATE OF ADMISSION: 07/27/2019 TIME SEEN: 9 a.m. CONSULTANTS: 1. Elle Salgado M.D. 2. Ritesh Varela M.D. CHIEF COMPLAINT: Atypical pneumonia, sepsis, HIV. BRIEF HISTORY: This is a 59-year-old male, who lives at home, shortness of breath increased for about a week, came to [place] last night, diagnosed with atypical pneumonia, sepsis, HIV admitted to telemetry for further care. Currently, calm in bed, slight short of breath. No complaint. REVIEW OF SYSTEMS: No chest pain. Slight short of breath. No nausea, vomiting, or diarrhea. PAST MEDICAL HISTORY: HIV. PAST SURGICAL HISTORY: None. ALLERGIES: Penicillin. SOCIAL HISTORY: Positive smoke. Positive alcohol. No intravenous drug abuse. FAMILY HISTORY: Noncontributory. PHYSICAL EXAMINATION: GENERAL: Calm in bed, oriented x3, slight short of breath. VITAL SIGNS: Temperature is 97, pulse 102, respiratory rate 22, blood pressure 132/79. CARDIOVASCULAR: No murmur. LUNGS: Poor exchange. ABDOMEN: Bowel sounds distant. EXTREMITIES: No cyanosis, clubbing, or edema. NEUROLOGIC: The patient moves all extremities, slightly weak. LABORATORY AND DIAGNOSTIC DATA: Labs at this time show white count 4.4 otherwise CBC is normal. BMP show potassium 3.4, glucose 126, calcium 8.1. AST 65. Albumin 3.1. Amylase 149. Urinalysis shows 2+ blood otherwise 3+ protein. Urine tox positive for marijuana, PCP, amphetamine. ASSESSMENT: 1. Pneumonia. 2. Sepsis. 3. HIV. 4. Drug abuse. PLAN: 1. O2, pulmonary treatment. 2. Antibiotics per Infectious Diseases. 3. Detox. 4. Dietary followup. 5. Pain control. 6. PT and dietary evaluation . 7. CBC and BMP in the morning. 8. Resume home medications. Ion Temple D.O. DR: Sushma JOB#: [id number] CC:
--- NOTE | 2019-07-28 19:15 | NUR ---
HAND-OFF: Report given to DEBORAH Cavazos. Patient is in stable condition; plan of care endorsed.
--- NOTE | 2019-07-28 19:16 | NUR ---
NURSE NOTES: Received pt from DEBORAH Irwin. Pt is awake and resting in bed a0x4. IV site intact. Bed locked in lowest position, bed locked in lowest position, call light within reach. Will continue with plan of care.
[2019-07-28 20:00] VITALS: BP 135/83
[2019-07-29] VITALS: BP 131/85
[2019-07-29 04:00] VITALS: BP 125/83
[2019-07-29] MEDS ORDERED: Guaifenesin/DM 10ml syrup ORAL PRN (05:30)
[2019-07-29] MEDS: D5NS 1,000 ML IV SCH ×3 (06:23→20:27)
--- NOTE | 2019-07-29 07:25 | NUR ---
HAND-OFF: Report given to DEBORAH Jj. Endorsed plan of care.
--- NOTE | 2019-07-29 07:28 | Cardiology Report ---
APPROVED REPORT EKG Measurement Heart [id number] Normal sinus rhythm Right atrial enlargement Septal infarct, age undetermined Abnormal ECG
--- NOTE | 2019-07-29 07:36 | General Progress Note ---
Assessment/Plan Problem List: (1) Tobacco abuse ICD Codes: Z72.0 - Tobacco use SNOMED: 224487623 (2) Atypical pneumonia ICD Codes: J18.9 - Pneumonia, unspecified organism SNOMED: 188377268 Assessment/Plan: no abd pain or nausea today repeat labs including LFTS, amylase and lipase fu pulm recs hold GI procedures for now Subjective ROS Limited/Unobtainable: Yes Allergies: Uncoded Allergies: eggs (Allergy, Intermediate, 07/27/19) SHELLFISH (Allergy, Unknown, 07/27/19) Subjective no abd pain no nausea today Objective Last 24 Hour Vital Signs Date Time Temp Pulse Resp B/P (MAP) Pulse Ox O2 Delivery O2 Flow Rate FiO2 07/29/19 04:00 77 07/29/19 04:00 98.3 77 18 125/83 (97) 96 07/29/19 00:00 98.0 71 18 131/85 (100) 97 07/29/19 00:00 71 07/28/19 21:00 Room Air 07/28/19 20:16 96 20 97 Room Air 21 07/28/19 20:00 98.0 79 18 135/83 (100) 99 07/28/19 20:00 79 07/28/19 16:00 97.5 73 20 144/86 (105) 98 07/28/19 16:00 69 07/28/19 12:00 78 07/28/19 12:00 98.1 74 20 132/78 (96) 94 07/28/19 09:00 Room Air 07/28/19 08:06 102 22 95 Room Air 21 07/28/19 08:00 60 07/28/19 08:00 97.7 79 20 132/79 (96) 93 Intake and Output 07/28/19 07/29/19 19:00 07:00 Intake Total 1080 ml 360 ml Output Total 800 ml Balance 1080 ml -440 ml Intake Oral 1080 ml Other 360 ml Output Urine Total 800 ml # Voids 5 Height (Feet): 5 Height (Inches): 9.00 Weight (Pounds): 180 General Appearance: alert EENT: normal ENT inspection Neck: supple Cardiovascular: normal rate Abdomen: normal bowel sounds, non tender, soft Extremities: non-tender Stevie Ahumada MD Jul 29, 2019 07:36
[2019-07-29 08:00] VITALS: BP 135/84
--- NOTE | 2019-07-29 08:14 | NUR ---
NURSE NOTES: Pt in bed in low position, Ox4 calm and cooperative, IV fluids running IV asymptomatic site, pt denies pain, pt stated he would like to go home soon, drug screen was positive, pt has breakfast tray at bedside, no s/s of distress or sob noted.
[2019-07-29] MEDS: Vancomycin 750mg/NS 275ml IVPB SCH ×2 (08:22)
[2019-07-29 08:38] LABS: HEMATOCRIT 50.8 % (42.0-52.0); HEMOGLOBIN 17.5 G/DL (14.2-18.0); MEAN CORPUSCULAR VOLUME 87 FL (80-99); PLATELET COUNT 169 K/UL (150-450); RED BLOOD COUNT 5.82 M/UL (4.70-6.10); RED CELL DISTRIBUTION WIDTH 12.2 % (11.6-14.8); WHITE BLOOD COUNT 4.8 K/UL (4.8-10.8)
[2019-07-29] MEDS ORDERED: Azithromycin 250mg tab ORAL SCH (09:00)
[2019-07-29 09:06] LABS: ANION GAP 7 mmol/L (5-15); BLOOD UREA NITROGEN 6 mg/dL (7-18); CALCIUM 8.8 MG/DL (8.5-10.1); CARBON DIOXIDE 25 MMOL/L (21-32); CHLORIDE 104 MMOL/L (98-107); SODIUM 136 MMOL/L (136-145)
[2019-07-29] MEDS: Heparin 5000 units/ml inj SUBQ SCH ×2 (09:58→20:28)
[2019-07-29] MEDS: Cefepime HCl 2 GM in D5W 110 ML IV SCH ×2 (09:59→20:27)
--- NOTE | 2019-07-29 11:16 | NUR ---
*-* INSURANCE *-* ALL CLINICALS AND REVIEWS HAVE BEEN FAXED TO: [facility] Ref#[id number] CM: Mykel Baeza#[phone] Addendum: 07/29/19 at 1118 by MAHNAZ JERNIGAN CM CM: Mykel Baeza#[phone] ext [phone]
--- NOTE | 2019-07-29 11:24 | Pulmonology Progress Note ---
Assessment/Plan Problems: (1) Atypical pneumonia (2) Tobacco abuse Assessment/Plan improving check sputum continue abx check electrolytes med/surg check electrolytes Subjective ROS Limited/Unobtainable: No Constitutional: Reports: no symptoms HEENT: Repors: no symptoms Respiratory: Reports: no symptoms Cardiovascular: Reports: no symptoms Allergies: Uncoded Allergies: eggs (Allergy, Intermediate, 07/27/19) SHELLFISH (Allergy, Unknown, 07/27/19) Objective Last 24 Hour Vital Signs Date Time Temp Pulse Resp B/P (MAP) Pulse Ox O2 Delivery O2 Flow Rate FiO2 07/29/19 10:28 93 22 98 Room Air 21 07/29/19 08:49 Room Air 07/29/19 08:00 98.0 78 18 135/84 (101) 99 78 07/29/19 07:46 78 07/29/19 04:00 77 07/29/19 04:00 98.3 77 18 125/83 (97) 96 07/29/19 00:00 98.0 71 18 131/85 (100) 97 07/29/19 00:00 71 07/28/19 21:00 Room Air 07/28/19 20:16 96 20 97 Room Air 21 07/28/19 20:00 98.0 79 18 135/83 (100) 99 07/28/19 20:00 79 07/28/19 16:00 97.5 73 20 144/86 (105) 98 07/28/19 16:00 69 07/28/19 12:00 78 07/28/19 12:00 98.1 74 20 132/78 (96) 94 Intake and Output 07/28/19 07/29/19 19:00 07:00 Intake Total 1080 ml 360 ml Output Total 800 ml Balance 1080 ml -440 ml Intake Oral 1080 ml Other 360 ml Output Urine Total 800 ml # Voids 5 General Appearance: WD/WN HEENT: normocephalic, atraumatic Respiratory/Chest: chest wall non-tender, lungs clear Cardiovascular: normal peripheral pulses, normal rate Genitourinary: normal external genitalia 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 Lymphatic: no neck adenopathy Microbiology Date/Time Source Procedure Growth Status 07/27/19 15:30 Blood Blood Culture - Preliminary NO GROWTH AFTER 24 HOURS Resulted 07/27/19 15:15 Blood Blood Culture - Preliminary NO GROWTH AFTER 24 HOURS Resulted 07/27/19 14:40 Nasal Nares - Final Complete 07/27/19 14:40 Nasal Nares - Final Complete Laboratory Tests 07/29/19 07:28: White Blood Count 4.8, Red Blood Count 5.82, Hemoglobin 17.5, Hematocrit 50.8, Mean Corpuscular Volume 87, Mean Corpuscular Hemoglobin 30.1, Mean Corpuscular Hemoglobin Concent 34.5, Red Cell Distribution Width 12.2, Platelet Count 169, Mean Platelet Volume 6.7, Neutrophils (%) (Auto) , Lymphocytes (%) (Auto) , Monocytes (%) (Auto) , Eosinophils (%) (Auto) , Basophils (%) (Auto) , Differential Total Cells Counted 100, Neutrophils % (Manual) 25L, Lymphocytes % (Manual) 58H, Monocytes % (Manual) 17H, Eosinophils % (Manual) 0, Basophils % ( Manual) 0, Band Neutrophils 0, Platelet Estimate Adequate, Platelet Morphology Normal, Sodium Level 136, Potassium Level 4.0, Chloride Level 104, Carbon Dioxide Level 25, Anion Gap 7, Blood Urea Nitrogen 6L, Creatinine 1.0, Estimat Glomerular Filtration Rate > 60, Glucose Level 111H, Calcium Level 8.8, Vancomycin Level Trough 3.5L Current Medications Medications (Trade) Dose Ordered Sig/Anthony Route PRN Reason Start Time Stop Time Status Last Admin Dose Admin Acetaminophen (Tylenol) 650 mg Q4H PRN ORAL fever (temp>100.5F) 07/27/19 18:45 08/26/19 18:44 07/27/19 20:49 Albuterol/ Ipratropium (Albuterol/ Ipratropium) 3 ml Q4H PRN HHN Shortness of Breath 07/27/19 18:45 08/01/19 18:44 07/28/19 15:14 Azithromycin (Zithromax) 250 mg DAILY ORAL 07/29/19 09:00 08/01/19 09:01 07/29/19 09:58 Cefepime HCl 2 gm/ Dextrose 110 ml @ 220 mls/hr EVERY 12 HOURS IV 07/27/19 21:00 08/03/19 20:59 07/29/19 09:59 Dextrose (Dextrose 50%) 25 ml Q30M PRN IV Hypoglycemia 07/27/19 18:45 08/26/19 18:44 Dextrose (Dextrose 50%) 50 ml Q30M PRN IV Hypoglycemia 07/27/19 18:45 08/26/19 18:44 Dextrose/Sodium Chloride 1,000 ml @ 100 mls/hr Q10H IV 07/27/19 18:45 08/26/19 18:44 07/29/19 06:23 Diphenhydramine HCl (Benadryl) 25 mg Q6H PRN ORAL Itching/Pruritis 07/27/19 18:45 08/26/19 18:44 Guaifenesin/ Dextromethorphan (Robitussin DM Syrup) 15 ml Q4H PRN ORAL For Cough 07/29/19 05:30 08/28/19 05:29 07/29/19 06:23 Heparin Sodium (Porcine) (Heparin 5000 units/ml) 5,000 units EVERY 12 HOURS SUBQ 07/28/19 09:00 08/27/19 08:59 07/28/19 08:57 Iohexol (Omnipaque) 100 mg NOW PRN INJ Radiology Procedure 07/27/19 13:45 07/29/19 13:38 Morphine Sulfate (Morphine Sulfate) 2 mg Q4H PRN IVP Severe Pain (Pain Scale 7-10) 07/27/19 18:45 08/03/19 18:44 07/28/19 08:58 Ondansetron HCl (Zofran) 4 mg Q6H PRN IVP Nausea & Vomiting 07/27/19 18:45 08/26/19 18:44 Polyethylene Glycol (Miralax) 17 gm DAILYPRN PRN ORAL Constipation 07/27/19 18:45 08/26/19 18:44 Temazepam (Restoril) 15 mg HSPRN PRN ORAL Insomnia 07/27/19 18:45 08/03/19 18:44 Vancomycin HCl (Vanco rx to dose) 1 ea DAILY PRN MISC PER RX PROTOCOL 07/27/19 18:45 08/26/19 18:44 Vancomycin HCl 750 mg/Sodium Chloride 275 ml @ 183.333 mls/hr Q12HR@0800,2000 IVPB 07/28/19 08:00 07/29/19 12:00 07/29/19 08:22 Vancomycin HCl 1 gm/Dextrose 275 ml @ 183.708 mls/hr Q8HR@0000,0800,1600 IVPB 07/29/19 16:00 08/03/19 15:59 Elle Salgado MD Jul 29, 2019 11:24
[2019-07-29 12:00] VITALS: BP 130/87
--- NOTE | 2019-07-29 14:17 | General Progress Note ---
Assessment/Plan Problem List: (1) HIV (human immunodeficiency virus infection) ICD Codes: B20 - Human immunodeficiency virus [HIV] disease SNOMED: 37028312 (2) Malnutrition ICD Codes: E46 - Unspecified protein-calorie malnutrition SNOMED: 63052234 (3) Sepsis ICD Codes: A41.9 - Sepsis, unspecified organism SNOMED: 27031740 (4) Atypical pneumonia ICD Codes: J18.9 - Pneumonia, unspecified organism SNOMED: 484234883 (5) Drug abuse ICD Codes: F19.10 - Other psychoactive substance abuse, uncomplicated SNOMED: 47488384 Status: unchanged Assessment/Plan: o2 pulm tx abx pt diet cbc bmp am Subjective Constitutional: Reports: weakness Respiratory: Reports: shortness of breath Allergies: Uncoded Allergies: eggs (Allergy, Intermediate, 07/27/19) SHELLFISH (Allergy, Unknown, 07/27/19) All Systems: reviewed and negative except above Subjective calm in bed Objective Last 24 Hour Vital Signs Date Time Temp Pulse Resp B/P (MAP) Pulse Ox O2 Delivery O2 Flow Rate FiO2 07/29/19 12:00 97.0 69 20 130/87 (101) 99 69 07/29/19 11:54 76 07/29/19 10:28 93 22 98 Room Air 21 07/29/19 08:49 Room Air 07/29/19 08:00 98.0 78 18 135/84 (101) 99 78 07/29/19 07:46 78 07/29/19 04:00 77 07/29/19 04:00 98.3 77 18 125/83 (97) 96 07/29/19 00:00 98.0 71 18 131/85 (100) 97 07/29/19 00:00 71 07/28/19 21:00 Room Air 07/28/19 20:16 96 20 97 Room Air 21 07/28/19 20:00 98.0 79 18 135/83 (100) 99 07/28/19 20:00 79 07/28/19 16:00 97.5 73 20 144/86 (105) 98 07/28/19 16:00 69 Intake and Output 07/28/19 07/29/19 19:00 07:00 Intake Total 1080 ml 360 ml Output Total 800 ml Balance 1080 ml -440 ml Intake Oral 1080 ml Other 360 ml Output Urine Total 800 ml # Voids 5 Laboratory Tests 07/29/19 07:28: White Blood Count 4.8, Red Blood Count 5.82, Hemoglobin 17.5, Hematocrit 50.8, Mean Corpuscular Volume 87, Mean Corpuscular Hemoglobin 30.1, Mean Corpuscular Hemoglobin Concent 34.5, Red Cell Distribution Width 12.2, Platelet Count 169, Mean Platelet Volume 6.7, Neutrophils (%) (Auto) , Lymphocytes (%) (Auto) , Monocytes (%) (Auto) , Eosinophils (%) (Auto) , Basophils (%) (Auto) , Differential Total Cells Counted 100, Neutrophils % (Manual) 25L, Lymphocytes % (Manual) 58H, Monocytes % (Manual) 17H, Eosinophils % (Manual) 0, Basophils % ( Manual) 0, Band Neutrophils 0, Platelet Estimate Adequate, Platelet Morphology Normal, Sodium Level 136, Potassium Level 4.0, Chloride Level 104, Carbon Dioxide Level 25, Anion Gap 7, Blood Urea Nitrogen 6L, Creatinine 1.0, Estimat Glomerular Filtration Rate > 60, Glucose Level 111H, Calcium Level 8.8, Vancomycin Level Trough 3.5L Height (Feet): 5 Height (Inches): 9.00 Weight (Pounds): 180 General Appearance: lethargic EENT: normal ENT inspection Neck: normal alignment Cardiovascular: normal peripheral pulses, normal rate, regular rhythm Respiratory/Chest: chest wall non-tender, lungs clear, normal breath sounds Abdomen: normal bowel sounds, non tender, soft Extremities: normal inspection Edema: no edema noted Arm (L), no edema noted Arm (R), no edema noted Leg (L), no edema noted Leg (R), no edema noted Pedal (L), no edema noted Pedal (R), no edema noted Generalized Neurologic: responsive, motor weakness Skin: normal pigmentation, warm/dry Ion Temple DO Jul 29, 2019 14:17
--- NOTE | 2019-07-29 14:23 | Diagnostic Imaging Report ---
APPROVED REPORT CPT Code: 19919 Present Symptoms Lower Extremity Edema: Bilateral BILATERAL: Imaging reveals a patent deep venous system bilaterally. There is no evidence of thrombus within the femoral, popliteal or tibial segments. The greater saphenous veins are also within normal limits. Doppler indicates normal spontaneous flow within these segments.
--- NOTE | 2019-07-29 15:22 | Infectious Diseases Prog Note ---
Assessment/Plan Assessment/Plan Assessment/Plan: 59yo gentleman with PMH tobacco and marijuana abuse, also found to have PCP, amphetamine positive presents with one week of fever, chills , cough, sob, diarrhea. ID consulted for recommendation Tmax 100.3, SP No leukocytosis Lactate 1.6 CAP? 07/27 flu swab negative 07/27 CTPA: No evidence of pulmonary embolus, aortic dissection or aneurysm. Patchy bilateral infiltrates. Consider pneumonia. Correlate clinically. Hiatal hernia. Degenerative changes of the spine. 07/27 UA negative r/o bacteremia 06/26 BCx: ngtd amphetamine, marijuana, PCP positive tobacco use Plan: cefepime and vancomycin #2 continue azithromycin #3 SP Ceftriaxone 07/27 f/u bcx trend temp, CBC MRSA screen TTE Thank you for this consult. [facility] will continue to follow the patient with you. Subjective Allergies: Uncoded Allergies: eggs (Allergy, Intermediate, 07/27/19) SHELLFISH (Allergy, Unknown, 07/27/19) Subjective Afebrile. on RA. Reports SOB when he was walking to the bathroom. Objective Vital Signs Last 24 Hour Vital Signs Date Time Temp Pulse Resp B/P (MAP) Pulse Ox O2 Delivery O2 Flow Rate FiO2 07/29/19 12:00 97.0 69 20 130/87 (101) 99 69 07/29/19 11:54 76 07/29/19 10:28 93 22 98 Room Air 21 07/29/19 08:49 Room Air 07/29/19 08:00 98.0 78 18 135/84 (101) 99 78 07/29/19 07:46 78 07/29/19 04:00 77 07/29/19 04:00 98.3 77 18 125/83 (97) 96 07/29/19 00:00 98.0 71 18 131/85 (100) 97 07/29/19 00:00 71 07/28/19 21:00 Room Air 07/28/19 20:16 96 20 97 Room Air 21 07/28/19 20:00 98.0 79 18 135/83 (100) 99 07/28/19 20:00 79 07/28/19 16:00 97.5 73 20 144/86 (105) 98 07/28/19 16:00 69 Height (Feet): 5 Height (Inches): 9.00 Weight (Pounds): 180 Objective VS: afebrile. RA. Gen: NAD HEENT: anicteric sclera CV: RRR Resp: coarse crackles diffusely Abd: soft. no TTP. slightly distended. Ext: no LE edema Microbiology Date/Time Source Procedure Growth Status 07/27/19 15:30 Blood Blood Culture - Preliminary NO GROWTH AFTER 24 HOURS Resulted 07/27/19 15:15 Blood Blood Culture - Preliminary NO GROWTH AFTER 24 HOURS Resulted 07/27/19 14:40 Nasal Nares - Final Complete 07/27/19 14:40 Nasal Nares - Final Complete Laboratory Tests Test 07/29/19 07:28 White Blood Count 4.8 K/UL (4.8-10.8) Red Blood Count 5.82 M/UL (4.70-6.10) Hemoglobin 17.5 G/DL (14.2-18.0) Hematocrit 50.8 % (42.0-52.0) Mean Corpuscular Volume 87 FL (80-99) Mean Corpuscular Hemoglobin 30.1 PG (27.0-31.0) Mean Corpuscular Hemoglobin Concent 34.5 G/DL (32.0-36.0) Red Cell Distribution Width 12.2 % (11.6-14.8) Platelet Count 169 K/UL (150-450) Mean Platelet Volume 6.7 FL (6.5-10.1) Neutrophils (%) (Auto) % (45.0-75.0) Lymphocytes (%) (Auto) % (20.0-45.0) Monocytes (%) (Auto) % (1.0-10.0) Eosinophils (%) (Auto) % (0.0-3.0) Basophils (%) (Auto) % (0.0-2.0) Differential Total Cells Counted 100 Neutrophils % (Manual) 25 % (45-75) L Lymphocytes % (Manual) 58 % (20-45) H Monocytes % (Manual) 17 % (1-10) H Eosinophils % (Manual) 0 % (0-3) Basophils % (Manual) 0 % (0-2) Band Neutrophils 0 % (0-8) Platelet Estimate Adequate Platelet Morphology Normal Sodium Level 136 MMOL/L (136-145) Potassium Level 4.0 MMOL/L (3.5-5.1) Chloride Level 104 MMOL/L (98-107) Carbon Dioxide Level 25 MMOL/L (21-32) Anion Gap 7 mmol/L (5-15) Blood Urea Nitrogen 6 mg/dL (7-18) L Creatinine 1.0 MG/DL (0.55-1.30) Estimat Glomerular Filtration Rate > 60 mL/min (>60) Glucose Level 111 MG/DL (74-106) H Calcium Level 8.8 MG/DL (8.5-10.1) Vancomycin Level Trough 3.5 ug/mL (5.0-12.0) L Current Medications Medications (Trade) Dose Ordered Sig/Anthony Route PRN Reason Start Time Stop Time Status Last Admin Dose Admin Acetaminophen (Tylenol) 650 mg Q4H PRN ORAL fever (temp>100.5F) 07/27/19 18:45 08/26/19 18:44 07/27/19 20:49 Albuterol/ Ipratropium (Albuterol/ Ipratropium) 3 ml Q4H PRN HHN Shortness of Breath 07/27/19 18:45 08/01/19 18:44 07/28/19 15:14 Azithromycin (Zithromax) 250 mg DAILY ORAL 07/29/19 09:00 08/01/19 09:01 07/29/19 09:58 Cefepime HCl 2 gm/ Dextrose 110 ml @ 220 mls/hr EVERY 12 HOURS IV 07/27/19 21:00 08/03/19 20:59 07/29/19 09:59 Dextrose (Dextrose 50%) 25 ml Q30M PRN IV Hypoglycemia 07/27/19 18:45 08/26/19 18:44 Dextrose (Dextrose 50%) 50 ml Q30M PRN IV Hypoglycemia 07/27/19 18:45 08/26/19 18:44 Dextrose/Sodium Chloride 1,000 ml @ 100 mls/hr Q10H IV 07/27/19 18:45 08/26/19 18:44 07/29/19 06:23 Diphenhydramine HCl (Benadryl) 25 mg Q6H PRN ORAL Itching/Pruritis 07/27/19 18:45 08/26/19 18:44 Guaifenesin/ Dextromethorphan (Robitussin DM Syrup) 15 ml Q4H PRN ORAL For Cough 07/29/19 05:30 08/28/19 05:29 07/29/19 06:23 Heparin Sodium (Porcine) (Heparin 5000 units/ml) 5,000 units EVERY 12 HOURS SUBQ 07/28/19 09:00 08/27/19 08:59 07/28/19 08:57 Morphine Sulfate (Morphine Sulfate) 2 mg Q4H PRN IVP Severe Pain (Pain Scale 7-10) 07/27/19 18:45 08/03/19 18:44 07/28/19 08:58 Ondansetron HCl (Zofran) 4 mg Q6H PRN IVP Nausea & Vomiting 07/27/19 18:45 08/26/19 18:44 Polyethylene Glycol (Miralax) 17 gm DAILYPRN PRN ORAL Constipation 07/27/19 18:45 08/26/19 18:44 Temazepam (Restoril) 15 mg HSPRN PRN ORAL Insomnia 07/27/19 18:45 08/03/19 18:44 Vancomycin HCl (Vanco rx to dose) 1 ea DAILY PRN MISC PER RX PROTOCOL 07/27/19 18:45 08/26/19 18:44 Vancomycin HCl 1 gm/Dextrose 275 ml @ 183.708 mls/hr Q8HR@0000,0800,1600 IVPB 07/29/19 16:00 08/03/19 15:59 Olman Torres MD Jul 29, 2019 15:22
[2019-07-29 16:00] VITALS: BP 125/66
[2019-07-29] MEDS ORDERED: Vancomycin 1gm/D5W 275ml IVPB SCH ×2 (16:00)
[2019-07-29] MEDS ORDERED: Morphine Sulfate 2mg/ml Inj(IV/IM USE ONLY) IVP PRN (18:12)
[2019-07-29] MEDS ORDERED: Miralax 17gm pkt ORAL PRN (18:13)
--- NOTE | 2019-07-29 18:33 | NUR ---
HAND-OFF: Report given to Priscilla Pulido.
--- NOTE | 2019-07-29 18:33 | NUR ---
nurse notes received patient from tele via bed, patient awake, alert, oriented x4, no sign of distress, with on going IVF patent and infusing well, oriented to the unit, plan of care was discussed verbalized understanding, 4 P's in progress call light w/n reach , family at bedside brittney darby
--- NOTE | 2019-07-29 18:58 | NUR ---
HAND-OFF: Report given to DEBORAH HILL, allison darby RN.
--- NOTE | 2019-07-29 19:39 | NUR ---
NURSE NOTES: Received patient awake, alert, verbal, ambulatory, no SOB noted, visitor at bedside.
[2019-07-29 20:00] VITALS: BP 134/79
[2019-07-29] MEDS: Albuterol/Ipratropium 3ml neb HHN PRN (20:05)
[2019-07-29] MEDS: Guaifenesin/DM 10ml syrup ORAL PRN (20:28)
[2019-07-30] VITALS (7 sets, daily range): BP systolic 132–146; BP diastolic 71–92
[2019-07-30] MEDS: Vancomycin 1 GM in D5W 275 ML IVPB SCH ×4 (00:19→23:29)
[2019-07-30] MEDS: Albuterol/Ipratropium 3ml neb HHN PRN ×3 (03:28→18:01)
--- NOTE | 2019-07-30 07:29 | NUR ---
HAND-OFF: Report given to Dilshad Palmer RN.
--- NOTE | 2019-07-30 07:30 | NUR ---
NURSE NOTES: Received patient on bed, awake. IV site intact and patent. Bed in low and locked position, call light in reach. No signs of respiratory distress or pain. Room board updated, will continue to monitor.
--- NOTE | 2019-07-30 07:53 | Cardiology Report ---
APPROVED REPORT EXAM: Two-dimensional and M-mode echocardiogram with Doppler and color Doppler. INDICATION Shortness of breath M-Mode DIMENSIONS IVSd1.1 (0.7-1.1cm)Left Atrium (MM)3.6 (1.6-4.0cm) LVDd4.1 (3.5-5.6cm)Aortic Root3.2 (2.0-3.7cm) PWd1.0 (0.7-1.1cm)Aortic Cusp Exc.2.1 (1.5-2.0cm) LVDs2.8 (2.5-4.0cm) PWs1.5 cm Normal left ventricular chamber size, systolic function and wall motion. Left ventricular ejection fraction estimated to be 60%. No evidence of pericardial effusion. All other cardiac chamber sizes are within normal limits. Focal aortic valve sclerosis with adequate cusp excursion. Thickened mitral valve leaflets with normal excursion. Mitral annulus and aortic root calcification. Pulmonic valve not well visualized. Normal tricuspid valve structure. IVC at normal size with physiologic collapse. A color flow and spectral Doppler study was performed and revealed: Trace mitral regurgitation. Mitral diastolic velocities suggest reduced left ventricular relaxation c/w mild LV diastolic dysfunction (Grade I ). Trace tricuspid regurgitation. Tricuspid systolic velocities suggests peak right ventricular systolic pressure of 13 mmHg. Pulmonic regurgitation present.
[2019-07-30 08:18] LABS: HEMATOCRIT 49.4 % (42.0-52.0); MEAN CORPUSCULAR VOLUME 88 FL (80-99); PLATELET COUNT 174 K/UL (150-450); RED CELL DISTRIBUTION WIDTH 12.3 % (11.6-14.8)
[2019-07-30] MEDS: Azithromycin 250mg tab ORAL SCH (08:28)
[2019-07-30] MEDS: Guaifenesin/DM 10ml syrup ORAL PRN ×2 (08:29→17:57)
[2019-07-30] MEDS: Heparin 5000 units/ml inj SUBQ SCH ×2 (08:30→20:41)
[2019-07-30 08:31] LABS: ALANINE AMINOTRANSFERASE 90 U/L (12-78); ALBUMIN 3.2 G/DL (3.4-5.0); ALBUMIN/GLOBULIN RATIO 0.7 (1.0-2.7); ALKALINE PHOSPHATASE 66 U/L (46-116); AMYLASE 148 U/L (25-115); ANION GAP 9 mmol/L (5-15); ASPARTATE AMINO TRANSFERASE 80 U/L (15-37); BILIRUBIN,TOTAL 0.7 MG/DL (0.2-1.0); BLOOD UREA NITROGEN 8 mg/dL (7-18); CALCIUM 8.5 MG/DL (8.5-10.1); CARBON DIOXIDE 25 MMOL/L (21-32); CHLORIDE 105 MMOL/L (98-107); CREATININE 0.9 MG/DL (0.55-1.30); PHOSPHORUS 3.1 MG/DL (2.5-4.9); POTASSIUM 3.8 MMOL/L (3.5-5.1); SODIUM 139 MMOL/L (136-145)
--- NOTE | 2019-07-30 09:11 | NUR ---
NURSE NOTES: Christal from lab called and stated patient is MRSA nares positive. Will notify and charge nurse. Addendum: 07/30/19 at 0915 by DOMINGO BRADLEY RN RN Message left for MD Torres.
--- NOTE | 2019-07-30 09:24 | NUR ---
NURSE NOTES: MD Torres called back report MRSA Nares positive given. No new orders.
--- NOTE | 2019-07-30 09:56 | General Progress Note ---
Assessment/Plan Problem List: (1) HIV (human immunodeficiency virus infection) ICD Codes: B20 - Human immunodeficiency virus [HIV] disease SNOMED: 05823709 (2) Malnutrition ICD Codes: E46 - Unspecified protein-calorie malnutrition SNOMED: 11232305 (3) Sepsis ICD Codes: A41.9 - Sepsis, unspecified organism SNOMED: 68342915 (4) Atypical pneumonia ICD Codes: J18.9 - Pneumonia, unspecified organism SNOMED: 582137623 (5) Drug abuse ICD Codes: F19.10 - Other psychoactive substance abuse, uncomplicated SNOMED: 32754422 Status: unchanged Assessment/Plan: o2 pulm tx abx pt diet cbc bmp am Subjective Constitutional: Reports: weakness Allergies: Uncoded Allergies: eggs (Allergy, Intermediate, 07/27/19) SHELLFISH (Allergy, Unknown, 07/27/19) All Systems: reviewed and negative except above Subjective o2 nc calm in bed Objective Last 24 Hour Vital Signs Date Time Temp Pulse Resp B/P (MAP) Pulse Ox O2 Delivery O2 Flow Rate FiO2 07/30/19 08:54 80 18 99 Nasal Cannula 2.0 28 80 18 98 07/30/19 08:26 Nasal Cannula 2.0 07/30/19 07:24 96.8 67 20 136/77 (96) 100 07/30/19 04:00 97.5 75 18 133/81 (98) 97 07/30/19 03:28 77 16 99 Nasal Cannula 2.0 28 73 16 97 07/30/19 00:00 97.5 69 18 146/92 (110) 97 07/29/19 20:14 Nasal Cannula 2.0 07/29/19 20:06 80 16 98 Nasal Cannula 2.0 28 79 16 97 07/29/19 20:05 88 22 96 Room Air 21 07/29/19 20:00 98.6 80 17 134/79 (97) 98 07/29/19 16:22 72 07/29/19 16:00 97.0 74 20 125/66 (85) 97 74 07/29/19 12:00 97.0 69 20 130/87 (101) 99 69 07/29/19 11:54 76 07/29/19 10:28 93 22 98 Room Air 21 Intake and Output 07/29/19 07/30/19 19:00 07:00 Intake Total 460 ml 1865.000 ml Balance 460 ml 1865.000 ml Intake Oral 360 ml 480 ml IV Total 100 ml 1385.000 ml # Voids 2 2 Laboratory Tests 07/30/19 06:45: White Blood Count 4.0L, Red Blood Count 5.60, Hemoglobin 17.0, Hematocrit 49.4, Mean Corpuscular Volume 88, Mean Corpuscular Hemoglobin 30.4, Mean Corpuscular Hemoglobin Concent 34.5, Red Cell Distribution Width 12.3, Platelet Count 174, Mean Platelet Volume 6.9, Neutrophils (%) (Auto) , Lymphocytes (%) (Auto) , Monocytes (%) (Auto) , Eosinophils (%) (Auto) , Basophils (%) (Auto) , Differential Total Cells Counted 100, Neutrophils % (Manual) 28L, Lymphocytes % (Manual) 52H, Monocytes % (Manual) 17H, Eosinophils % (Manual) 3, Basophils % ( Manual) 0, Band Neutrophils 0, Platelet Estimate Adequate, Platelet Morphology Normal, Erythrocyte Sedimentation Rate 24H, Sodium Level 139, Potassium Level 3.8, Chloride Level 105, Carbon Dioxide Level 25, Anion Gap 9, Blood Urea Nitrogen 8, Creatinine 0.9, Estimat Glomerular Filtration Rate > 60, Glucose Level 104, Hemoglobin A1c 5.9, Calcium Level 8.5, Phosphorus Level 3.1, Magnesium Level 2.0, Total Bilirubin 0.7, Aspartate Amino Transf (AST/SGOT) 80H , Alanine Aminotransferase (ALT/SGPT) 90H, Alkaline Phosphatase 66, C-Reactive Protein, Quantitative < 0.4, Total Protein 7.9, Albumin 3.2L, Globulin 4.7, Albumin/Globulin Ratio 0.7L, Amylase Level 148H, Lipase 133 Height (Feet): 5 Height (Inches): 9.00 Weight (Pounds): 185 General Appearance: lethargic EENT: normal ENT inspection Neck: normal alignment Cardiovascular: normal peripheral pulses, normal rate, regular rhythm Respiratory/Chest: chest wall non-tender, lungs clear, normal breath sounds Abdomen: normal bowel sounds, non tender, soft Extremities: normal inspection Edema: no edema noted Arm (L), no edema noted Arm (R), no edema noted Leg (L), no edema noted Leg (R), no edema noted Pedal (L), no edema noted Pedal (R), no edema noted Generalized Neurologic: motor weakness Skin: normal pigmentation, warm/dry Ion Temple DO Jul 30, 2019 09:56
[2019-07-30] MEDS: Cefepime HCl 2 GM in D5W 110 ML IV SCH ×2 (11:04→20:40)
--- NOTE | 2019-07-30 11:19 | NUR ---
NURSE NOTES: Found medication at pt bedside with no name on bottle of antiretrovirals. Medication was not listed on medication recon, though patient states he takes one tablet PO daily. Medication was given to inpatient pharmacy and Naomi Minaya Alborzi were notified. MD Varela states MD Trores will follow up. Will speak with MD upon arrival. Patient states he did not take tablet today. Charge nurse notified.
--- NOTE | 2019-07-30 11:21 | NUR ---
NURSE NOTES: Patient states he did not want influenza vaccination. Patient is allergic to eggs and is contraindicated.
--- NOTE | 2019-07-30 11:21 | NUR ---
NURSE NOTES: Patient moved to room 418-2 due to MRSA nares.
[2019-07-30] MEDS: D5NS 1,000 ML IV SCH ×2 (11:44→23:28)
--- NOTE | 2019-07-30 13:00 | GI Progress Note ---
Assessment/Plan Problems: (1) Malnutrition ICD Codes: E46 - Unspecified protein-calorie malnutrition SNOMED: 45094554 (2) Drug abuse ICD Codes: F19.10 - Other psychoactive substance abuse, uncomplicated SNOMED: 94408285 Status: stable, unchanged Status Narrative Discussed with Dr. Ahumada. Assessment/Plan Urine toxicity positive for phencyclidine, amphetamines and marijuana History of colonoscopy x3 years with unremarkable findings No plans for any GI procedures at this time Symptomatic treatment Advance diet as tolerated Zofran as needed PPI IV p.o. hydration Follow labs The patient was seen and examined at bedside and all new and available data was reviewed in the patients chart. I agree with the above findings, impression and plan. (Patient seen earlier today. Signature stamp does not reflect patient encounter time.). - Stevie Ahumada MD Subjective Gastrointestinal/Abdominal: Reports: no symptoms Objective Last 24 Hour Vital Signs Date Time Temp Pulse Resp B/P (MAP) Pulse Ox O2 Delivery O2 Flow Rate FiO2 07/30/19 12:00 97.9 74 18 136/84 (101) 99 07/30/19 08:54 80 18 99 Nasal Cannula 2.0 28 80 18 98 07/30/19 08:26 Nasal Cannula 2.0 07/30/19 08:00 96.8 67 20 136/77 (96) 100 07/30/19 07:24 96.8 67 20 136/77 (96) 100 07/30/19 04:00 97.5 75 18 133/81 (98) 97 07/30/19 03:28 77 16 99 Nasal Cannula 2.0 28 73 16 97 07/30/19 00:00 97.5 69 18 146/92 (110) 97 07/29/19 20:14 Nasal Cannula 2.0 07/29/19 20:06 80 16 98 Nasal Cannula 2.0 28 79 16 97 07/29/19 20:05 88 22 96 Room Air 21 07/29/19 20:00 98.6 80 17 134/79 (97) 98 07/29/19 16:22 72 07/29/19 16:00 97.0 74 20 125/66 (85) 97 74 Intake and Output 07/29/19 07/30/19 19:00 07:00 Intake Total 460 ml 1865.000 ml Balance 460 ml 1865.000 ml Intake Oral 360 ml 480 ml IV Total 100 ml 1385.000 ml # Voids 2 2 Laboratory Tests Test 07/30/19 06:45 White Blood Count 4.0 K/UL (4.8-10.8) L Red Blood Count 5.60 M/UL (4.70-6.10) Hemoglobin 17.0 G/DL (14.2-18.0) Hematocrit 49.4 % (42.0-52.0) Mean Corpuscular Volume 88 FL (80-99) Mean Corpuscular Hemoglobin 30.4 PG (27.0-31.0) Mean Corpuscular Hemoglobin Concent 34.5 G/DL (32.0-36.0) Red Cell Distribution Width 12.3 % (11.6-14.8) Platelet Count 174 K/UL (150-450) Mean Platelet Volume 6.9 FL (6.5-10.1) Neutrophils (%) (Auto) % (45.0-75.0) Lymphocytes (%) (Auto) % (20.0-45.0) Monocytes (%) (Auto) % (1.0-10.0) Eosinophils (%) (Auto) % (0.0-3.0) Basophils (%) (Auto) % (0.0-2.0) Differential Total Cells Counted 100 Neutrophils % (Manual) 28 % (45-75) L Lymphocytes % (Manual) 52 % (20-45) H Monocytes % (Manual) 17 % (1-10) H Eosinophils % (Manual) 3 % (0-3) Basophils % (Manual) 0 % (0-2) Band Neutrophils 0 % (0-8) Platelet Estimate Adequate Platelet Morphology Normal Erythrocyte Sedimentation Rate 24 MM/HR (0-20) H Sodium Level 139 MMOL/L (136-145) Potassium Level 3.8 MMOL/L (3.5-5.1) Chloride Level 105 MMOL/L (98-107) Carbon Dioxide Level 25 MMOL/L (21-32) Anion Gap 9 mmol/L (5-15) Blood Urea Nitrogen 8 mg/dL (7-18) Creatinine 0.9 MG/DL (0.55-1.30) Estimat Glomerular Filtration Rate > 60 mL/min (>60) Glucose Level 104 MG/DL (74-106) Hemoglobin A1c 5.9 % (4.3-6.0) Calcium Level 8.5 MG/DL (8.5-10.1) Phosphorus Level 3.1 MG/DL (2.5-4.9) Magnesium Level 2.0 MG/DL (1.8-2.4) Total Bilirubin 0.7 MG/DL (0.2-1.0) Aspartate Amino Transf (AST/SGOT) 80 U/L (15-37) H Alanine Aminotransferase (ALT/SGPT) 90 U/L (12-78) H Alkaline Phosphatase 66 U/L (46-116) C-Reactive Protein, Quantitative < 0.4 mg/dL (0.00-0.90) Total Protein 7.9 G/DL (6.4-8.2) Albumin 3.2 G/DL (3.4-5.0) L Globulin 4.7 g/dL Albumin/Globulin Ratio 0.7 (1.0-2.7) L Amylase Level 148 U/L (25-115) H Lipase 133 U/L (73-393) Height (Feet): 5 Height (Inches): 9.00 Weight (Pounds): 185 General Appearance: WD/WN, no apparent distress, alert Cardiovascular: normal rate Respiratory/Chest: normal breath sounds, no respiratory distress Abdominal Exam: normal bowel sounds, non tender, soft Extremities: normal range of motion, non-tender Michael Cadena [employer] Jul 30, 2019 13:00
--- NOTE | 2019-07-30 14:38 | NUR ---
*-* INSURANCE *-* ALL CLINICALS AND REVIEWS HAVE BEEN FAXED TO: [employer] Ref#[id number] CM: [employer] #[phone] ext [phone]
--- NOTE | 2019-07-30 14:44 | NUR ---
NURSE NOTES: Per MD Torres order, continue patient's own medication (Biktarvy) 1 tab PO daily.
--- NOTE | 2019-07-30 14:51 | Pulmonology Progress Note ---
Assessment/Plan Problems: (1) Atypical pneumonia (2) Tobacco abuse Assessment/Plan improving check sputum continue abx check electrolytes med/surg check electrolytes Subjective ROS Limited/Unobtainable: No Constitutional: Reports: no symptoms HEENT: Repors: no symptoms Respiratory: Reports: no symptoms Allergies: Uncoded Allergies: eggs (Allergy, Intermediate, 07/27/19) SHELLFISH (Allergy, Unknown, 07/27/19) Objective Last 24 Hour Vital Signs Date Time Temp Pulse Resp B/P (MAP) Pulse Ox O2 Delivery O2 Flow Rate FiO2 07/30/19 12:00 97.9 74 18 136/84 (101) 99 07/30/19 08:54 80 18 99 Nasal Cannula 2.0 28 80 18 98 07/30/19 08:26 Nasal Cannula 2.0 07/30/19 08:00 96.8 67 20 136/77 (96) 100 07/30/19 07:24 96.8 67 20 136/77 (96) 100 07/30/19 04:00 97.5 75 18 133/81 (98) 97 07/30/19 03:28 77 16 99 Nasal Cannula 2.0 28 73 16 97 07/30/19 00:00 97.5 69 18 146/92 (110) 97 07/29/19 20:14 Nasal Cannula 2.0 07/29/19 20:06 80 16 98 Nasal Cannula 2.0 28 79 16 97 07/29/19 20:05 88 22 96 Room Air 21 07/29/19 20:00 98.6 80 17 134/79 (97) 98 07/29/19 16:22 72 07/29/19 16:00 97.0 74 20 125/66 (85) 97 74 Intake and Output 07/29/19 07/30/19 19:00 07:00 Intake Total 460 ml 1865.000 ml Balance 460 ml 1865.000 ml Intake Oral 360 ml 480 ml IV Total 100 ml 1385.000 ml # Voids 2 2 General Appearance: WD/WN HEENT: normocephalic, atraumatic Respiratory/Chest: chest wall non-tender, lungs clear Cardiovascular: normal peripheral pulses, regular rhythm Abdomen: normal bowel sounds, soft, non tender Genitourinary: normal external genitalia Extremities: no clubbing Neurologic/Psychiatric: 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 grossly normal, abnormal gait Lymphatic: no neck adenopathy Musculoskeletal: normal muscle bulk Microbiology Date/Time Source Procedure Growth Status 07/27/19 15:30 Blood Blood Culture - Preliminary NO GROWTH AFTER 48 HOURS Resulted 07/27/19 15:15 Blood Blood Culture - Preliminary NO GROWTH AFTER 48 HOURS Resulted 07/28/19 13:10 Nose MRSA Culture - Final Staphylococcus Aureus - Mrsa Complete Laboratory Tests 07/30/19 06:45: White Blood Count 4.0L, Red Blood Count 5.60, Hemoglobin 17.0, Hematocrit 49.4, Mean Corpuscular Volume 88, Mean Corpuscular Hemoglobin 30.4, Mean Corpuscular Hemoglobin Concent 34.5, Red Cell Distribution Width 12.3, Platelet Count 174, Mean Platelet Volume 6.9, Neutrophils (%) (Auto) , Lymphocytes (%) (Auto) , Monocytes (%) (Auto) , Eosinophils (%) (Auto) , Basophils (%) (Auto) , Differential Total Cells Counted 100, Neutrophils % (Manual) 28L, Lymphocytes % (Manual) 52H, Monocytes % (Manual) 17H, Eosinophils % (Manual) 3, Basophils % ( Manual) 0, Band Neutrophils 0, Platelet Estimate Adequate, Platelet Morphology Normal, Erythrocyte Sedimentation Rate 24H, Sodium Level 139, Potassium Level 3.8, Chloride Level 105, Carbon Dioxide Level 25, Anion Gap 9, Blood Urea Nitrogen 8, Creatinine 0.9, Estimat Glomerular Filtration Rate > 60, Glucose Level 104, Hemoglobin A1c 5.9, Calcium Level 8.5, Phosphorus Level 3.1, Magnesium Level 2.0, Total Bilirubin 0.7, Aspartate Amino Transf (AST/SGOT) 80H , Alanine Aminotransferase (ALT/SGPT) 90H, Alkaline Phosphatase 66, C-Reactive Protein, Quantitative < 0.4, Total Protein 7.9, Albumin 3.2L, Globulin 4.7, Albumin/Globulin Ratio 0.7L, Amylase Level 148H, Lipase 133 Current Medications Medications (Trade) Dose Ordered Sig/Anthony Route PRN Reason Start Time Stop Time Status Last Admin Dose Admin Acetaminophen (Tylenol) 650 mg Q4H PRN ORAL fever (temp>100.5F) 07/29/19 18:12 08/28/19 18:11 Albuterol/ Ipratropium (Albuterol/ Ipratropium) 3 ml Q4H PRN HHN Shortness of Breath 07/29/19 18:12 11/10/19 18:11 07/30/19 08:54 Azithromycin (Zithromax) 250 mg DAILY ORAL 07/30/19 09:00 08/01/19 09:01 07/30/19 08:28 Cefepime HCl 2 gm/ Dextrose 110 ml @ 220 mls/hr EVERY 12 HOURS IV 07/29/19 21:00 08/03/19 20:59 07/30/19 11:04 Dextrose (Dextrose 50%) 25 ml Q30M PRN IV Hypoglycemia 07/29/19 18:15 08/26/19 18:44 Dextrose (Dextrose 50%) 50 ml Q30M PRN IV Hypoglycemia 07/29/19 18:15 08/26/19 18:44 Dextrose/Sodium Chloride 1,000 ml @ 100 mls/hr Q10H IV 07/29/19 18:12 08/28/19 18:11 07/30/19 11:44 Diphenhydramine HCl (Benadryl) 25 mg Q6H PRN ORAL Itching/Pruritis 07/29/19 18:12 08/28/19 18:11 Guaifenesin/ Dextromethorphan (Robitussin DM Syrup) 15 ml Q4H PRN ORAL For Cough 07/29/19 18:12 08/28/19 18:11 07/30/19 08:29 Heparin Sodium (Porcine) (Heparin 5000 units/ml) 5,000 units EVERY 12 HOURS SUBQ 07/29/19 21:00 08/27/19 08:59 07/30/19 08:30 Morphine Sulfate (Morphine Sulfate) 2 mg Q4H PRN IVP Severe Pain (Pain Scale 7-10) 07/29/19 18:12 08/05/19 18:11 Non-Formulary Medication (Non-Formulary Med) 1 ea DAILY ORAL 07/30/19 09:00 08/29/19 08:59 UNV Ondansetron HCl (Zofran) 4 mg Q6H PRN IVP Nausea & Vomiting 07/29/19 18:13 08/28/19 18:12 Polyethylene Glycol (Miralax) 17 gm DAILYPRN PRN ORAL Constipation 07/29/19 18:13 08/28/19 18:12 Temazepam (Restoril) 15 mg HSPRN PRN ORAL Insomnia 07/29/19 18:45 08/03/19 18:44 Vancomycin HCl (Vanco rx to dose) 1 ea DAILY PRN MISC PER RX PROTOCOL 07/30/19 09:00 08/26/19 18:44 Vancomycin HCl 1 gm/Dextrose 275 ml @ 183.708 mls/hr Q8HR@0000,0800,1600 IVPB 07/30/19 00:00 08/03/19 15:59 07/30/19 08:29 Elle Salgado MD Jul 30, 2019 14:51
[2019-07-30] MEDS: BIKTARVY ORAL SCH (15:47)
--- NOTE | 2019-07-30 15:51 | Infectious Diseases Prog Note ---
Assessment/Plan Assessment/Plan Assessment/Plan: 59yo gentleman with PMH tobacco and marijuana abuse, also found to have PCP, amphetamine positive presents with one week of fever, chills , cough, sob, diarrhea. ID consulted for recommendation Tmax 100.3, SP No leukocytosis Lactate 1.6 CAP? 07/27 flu swab negative 07/27 CTPA: No evidence of pulmonary embolus, aortic dissection or aneurysm. Patchy bilateral infiltrates. Consider pneumonia. Correlate clinically. Hiatal hernia. Degenerative changes of the spine. 07/28 TTE: EF 60%, mild diastolic dysfunction 07/27 UA negative r/o bacteremia 06/26 BCx: ngtd HIV dx 1980s reports daily compliance with Biktarvy(previously used Genvoya, Truvada, etc) reports CD4 of 700, undetectable VL ALC 2K, CD4 likely to be>200 MRSA screen positive amphetamine, marijuana, PCP positive tobacco use Plan: cefepime and vancomycin #4/5 continue azithromycin #4/5 SP Ceftriaxone 07/27 f/u bcx trend temp, CBC Thank you for this consult. [facility] will continue to follow the patient with you. Subjective Allergies: Coded Allergies: EGG (Verified Allergy, Intermediate, Hives, 07/30/19) SHELLFISH DERIVED (Verified Allergy, Intermediate, Shortness of Breath, ) SOB and hives Subjective Afebrile. on 2L. continues to report SOB Objective Vital Signs Last 24 Hour Vital Signs Date Time Temp Pulse Resp B/P (MAP) Pulse Ox O2 Delivery O2 Flow Rate FiO2 07/30/19 12:00 97.9 74 18 136/84 (101) 99 07/30/19 08:54 80 18 99 Nasal Cannula 2.0 28 80 18 98 07/30/19 08:26 Nasal Cannula 2.0 07/30/19 08:00 96.8 67 20 136/77 (96) 100 07/30/19 07:24 96.8 67 20 136/77 (96) 100 07/30/19 04:00 97.5 75 18 133/81 (98) 97 07/30/19 03:28 77 16 99 Nasal Cannula 2.0 28 73 16 97 07/30/19 00:00 97.5 69 18 146/92 (110) 97 07/29/19 20:14 Nasal Cannula 2.0 07/29/19 20:06 80 16 98 Nasal Cannula 2.0 28 79 16 97 07/29/19 20:05 88 22 96 Room Air 21 07/29/19 20:00 98.6 80 17 134/79 (97) 98 07/29/19 16:22 72 07/29/19 16:00 97.0 74 20 125/66 (85) 97 74 Height (Feet): 5 Height (Inches): 9.00 Weight (Pounds): 185 Objective VS: afebrile. RA. Gen: NAD HEENT: anicteric sclera CV: RRR Resp: coarse crackles diffusely Abd: soft. no TTP. slightly distended. Ext: no LE edema Microbiology Date/Time Source Procedure Growth Status 07/28/19 13:10 Nose MRSA Culture - Final Staphylococcus Aureus - Mrsa Complete Laboratory Tests Test 07/30/19 06:45 White Blood Count 4.0 K/UL (4.8-10.8) L Red Blood Count 5.60 M/UL (4.70-6.10) Hemoglobin 17.0 G/DL (14.2-18.0) Hematocrit 49.4 % (42.0-52.0) Mean Corpuscular Volume 88 FL (80-99) Mean Corpuscular Hemoglobin 30.4 PG (27.0-31.0) Mean Corpuscular Hemoglobin Concent 34.5 G/DL (32.0-36.0) Red Cell Distribution Width 12.3 % (11.6-14.8) Platelet Count 174 K/UL (150-450) Mean Platelet Volume 6.9 FL (6.5-10.1) Neutrophils (%) (Auto) % (45.0-75.0) Lymphocytes (%) (Auto) % (20.0-45.0) Monocytes (%) (Auto) % (1.0-10.0) Eosinophils (%) (Auto) % (0.0-3.0) Basophils (%) (Auto) % (0.0-2.0) Differential Total Cells Counted 100 Neutrophils % (Manual) 28 % (45-75) L Lymphocytes % (Manual) 52 % (20-45) H Monocytes % (Manual) 17 % (1-10) H Eosinophils % (Manual) 3 % (0-3) Basophils % (Manual) 0 % (0-2) Band Neutrophils 0 % (0-8) Platelet Estimate Adequate Platelet Morphology Normal Erythrocyte Sedimentation Rate 24 MM/HR (0-20) H Sodium Level 139 MMOL/L (136-145) Potassium Level 3.8 MMOL/L (3.5-5.1) Chloride Level 105 MMOL/L (98-107) Carbon Dioxide Level 25 MMOL/L (21-32) Anion Gap 9 mmol/L (5-15) Blood Urea Nitrogen 8 mg/dL (7-18) Creatinine 0.9 MG/DL (0.55-1.30) Estimat Glomerular Filtration Rate > 60 mL/min (>60) Glucose Level 104 MG/DL (74-106) Hemoglobin A1c 5.9 % (4.3-6.0) Calcium Level 8.5 MG/DL (8.5-10.1) Phosphorus Level 3.1 MG/DL (2.5-4.9) Magnesium Level 2.0 MG/DL (1.8-2.4) Total Bilirubin 0.7 MG/DL (0.2-1.0) Aspartate Amino Transf (AST/SGOT) 80 U/L (15-37) H Alanine Aminotransferase (ALT/SGPT) 90 U/L (12-78) H Alkaline Phosphatase 66 U/L (46-116) C-Reactive Protein, Quantitative < 0.4 mg/dL (0.00-0.90) Total Protein 7.9 G/DL (6.4-8.2) Albumin 3.2 G/DL (3.4-5.0) L Globulin 4.7 g/dL Albumin/Globulin Ratio 0.7 (1.0-2.7) L Amylase Level 148 U/L (25-115) H Lipase 133 U/L (73-393) Current Medications Medications (Trade) Dose Ordered Sig/Anthony Route PRN Reason Start Time Stop Time Status Last Admin Dose Admin Acetaminophen (Tylenol) 650 mg Q4H PRN ORAL fever (temp>100.5F) 07/29/19 18:12 08/28/19 18:11 Albuterol/ Ipratropium (Albuterol/ Ipratropium) 3 ml Q4H PRN HHN Shortness of Breath 07/29/19 18:12 08/03/19 18:11 07/30/19 08:54 Azithromycin (Zithromax) 250 mg DAILY ORAL 07/30/19 09:00 08/01/19 09:01 07/30/19 08:28 Cefepime HCl 2 gm/ Dextrose 110 ml @ 220 mls/hr EVERY 12 HOURS IV 07/29/19 21:00 08/03/19 20:59 07/30/19 11:04 Dextrose (Dextrose 50%) 25 ml Q30M PRN IV Hypoglycemia 07/29/19 18:15 08/26/19 18:44 Dextrose (Dextrose 50%) 50 ml Q30M PRN IV Hypoglycemia 07/29/19 18:15 08/26/19 18:44 Dextrose/Sodium Chloride 1,000 ml @ 100 mls/hr Q10H IV 07/29/19 18:12 08/28/19 18:11 07/30/19 11:44 Diphenhydramine HCl (Benadryl) 25 mg Q6H PRN ORAL Itching/Pruritis 07/29/19 18:12 08/28/19 18:11 Guaifenesin/ Dextromethorphan (Robitussin DM Syrup) 15 ml Q4H PRN ORAL For Cough 07/29/19 18:12 08/28/19 18:11 07/30/19 08:29 Heparin Sodium (Porcine) (Heparin 5000 units/ml) 5,000 units EVERY 12 HOURS SUBQ 07/29/19 21:00 08/27/19 08:59 07/30/19 08:30 Morphine Sulfate (Morphine Sulfate) 2 mg Q4H PRN IVP Severe Pain (Pain Scale 7-10) 07/29/19 18:12 08/05/19 18:11 Ondansetron HCl (Zofran) 4 mg Q6H PRN IVP Nausea & Vomiting 07/29/19 18:13 08/28/19 18:12 Patient Own Medication (Patient's Own Med) 1 ea DAILY ORAL 07/30/19 16:30 08/29/19 16:29 07/30/19 15:47 Polyethylene Glycol (Miralax) 17 gm DAILYPRN PRN ORAL Constipation 07/29/19 18:13 08/28/19 18:12 Temazepam (Restoril) 15 mg HSPRN PRN ORAL Insomnia 07/29/19 18:45 08/03/19 18:44 Vancomycin HCl (Vanco rx to dose) 1 ea DAILY PRN MISC PER RX PROTOCOL 07/30/19 09:00 08/26/19 18:44 Vancomycin HCl 1 gm/Dextrose 275 ml @ 183.708 mls/hr Q8HR@0000,0800,1600 IVPB 07/30/19 00:00 08/03/19 15:59 07/30/19 15:47 Olman Torres MD Jul 30, 2019 15:50
--- NOTE | 2019-07-30 18:05 | NUR ---
NURSE NOTES: Patient stated he vomited after dinner but was not witnessed. Zofran given and patient educated to notify the nurse when this happens and to ask for medication if he is feeling nausea starting.
--- NOTE | 2019-07-30 19:14 | NUR ---
CASE MANAGEMENT: REVIEW SI: PNA . MALNUTRITION T 96.8 HR 80 RR 18 BP 132/71 SAT 98% NC/2L WBC 4.0 AST 80 ALT 90 T-CELL PANEL PENDING IS: AZITHROMYCIN PO QD VANCO IV Q8HR CEFEPIME IV Q12HR HEPARIN SUBQ Q12HR D5 NS IVF @100ML/HR 1:1 FEED/ASSIST FOR ASPIRATION PO DIET MED/SURG STATUS DCP: PATIENT IS FROM HOME
--- NOTE | 2019-07-30 19:17 | NUR ---
HAND-OFF: Report given to DEBORAH Beltrán.
--- NOTE | 2019-07-30 19:45 | NUR ---
NURSE NOTES: Received patient awake, alert, verbal, resting in bed comfortably without SOB.
[2019-07-31] VITALS: BP 160/90
[2019-07-31 06:15] LABS: HEMATOCRIT 48.1 % (42.0-52.0); HEMOGLOBIN 16.7 G/DL (14.2-18.0); MEAN CORPUSCULAR VOLUME 88 FL (80-99); PLATELET COUNT 183 K/UL (150-450); RED BLOOD COUNT 5.45 M/UL (4.70-6.10); RED CELL DISTRIBUTION WIDTH 11.9 % (11.6-14.8); WHITE BLOOD COUNT 3.7 K/UL (4.8-10.8)
[2019-07-31 06:46] LABS: ANION GAP 9 mmol/L (5-15); BLOOD UREA NITROGEN 6 mg/dL (7-18); CALCIUM 8.5 MG/DL (8.5-10.1); CARBON DIOXIDE 25 MMOL/L (21-32); CHLORIDE 106 MMOL/L (98-107); CREATININE 1.1 MG/DL (0.55-1.30); POTASSIUM 3.9 MMOL/L (3.5-5.1); SODIUM 140 MMOL/L (136-145)
--- NOTE | 2019-07-31 07:00 | NUR ---
HAND-OFF: Report given to Awilda Kirkpatrick RN.
--- NOTE | 2019-07-31 07:08 | NUR ---
NURSE NOTES: received report from DEBORAH Beltrán. patient in bed. alert. oriented. verbally responsive, no respiratory distress noted. no c/o pain at this time. contact isolation. PPE at all times. IV on LAC 18 running fluid @100/hr. bed in the lowest position. call light within reach. will provide plan of care.
[2019-07-31 08:00] VITALS: BP 134/84
[2019-07-31] MEDS: Azithromycin 250mg tab ORAL SCH (08:22)
[2019-07-31] MEDS: Heparin 5000 units/ml inj SUBQ SCH ×2 (08:25→21:47)
[2019-07-31] MEDS: Vancomycin 1 GM in D5W 275 ML IVPB SCH ×2 (08:26→16:34)
[2019-07-31] MEDS: BIKTARVY ORAL SCH (09:40)
[2019-07-31] MEDS: Cefepime HCl 2 GM in D5W 110 ML IV SCH ×2 (10:08→22:20)
[2019-07-31] MEDS: D5NS 1,000 ML IV SCH ×2 (10:10→20:12)
--- NOTE | 2019-07-31 11:21 | Pulmonology Progress Note ---
Assessment/Plan Problems: (1) Atypical pneumonia (2) Tobacco abuse Assessment/Plan still short of breath repeat CXR check sputum continue abx check electrolytes med/surg All medications and treatment were reviewed. Subjective ROS Limited/Unobtainable: No Interval Events: still coughing Allergies: Coded Allergies: EGG (Verified Allergy, Intermediate, Hives, 07/30/19) SHELLFISH DERIVED (Verified Allergy, Intermediate, Shortness of Breath, ) SOB and hives Objective Last 24 Hour Vital Signs Date Time Temp Pulse Resp B/P (MAP) Pulse Ox O2 Delivery O2 Flow Rate FiO2 07/31/19 08:35 98 Nasal Cannula 2.0 28 07/31/19 08:35 88 20 98 Nasal Cannula 2.0 28 07/31/19 08:00 98.5 68 16 134/84 (101) 99 07/31/19 00:00 98.1 72 19 160/90 (113) 100 07/30/19 20:22 Nasal Cannula 2.0 07/30/19 20:00 97.3 67 19 141/77 (98) 99 07/30/19 18:58 98 Nasal Cannula 2.0 28 07/30/19 18:58 89 18 98 Nasal Cannula 2.0 28 07/30/19 18:02 74 18 99 Nasal Cannula 2.0 28 72 16 97 07/30/19 16:00 97.1 63 19 132/85 (101) 99 07/30/19 16:00 96.8 67 20 136/71 (92) 100 07/30/19 12:00 97.9 74 18 136/84 (101) 99 Intake and Output 07/30/19 07/31/19 19:00 07:00 Intake Total 1980.000 ml 2085.000 ml Output Total 800 ml Balance 1980.000 ml 1285.000 ml Intake Oral 720 ml 240 ml IV Total 1260.000 ml 1485.000 ml Other 360 ml Output Urine Total 800 ml # Voids 2 General Appearance: WD/WN HEENT: normocephalic, anicteric Respiratory/Chest: chest wall non-tender, normal breath sounds Cardiovascular: normal peripheral pulses, regular rhythm Abdomen: normal bowel sounds, no organomegaly Genitourinary: normal external genitalia Extremities: no clubbing Skin: no rash 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 Microbiology Date/Time Source Procedure Growth Status 07/28/19 13:10 Nose MRSA Culture - Final Staphylococcus Aureus - Mrsa Complete Laboratory Tests 07/30/19 15:15: Vancomycin Level Trough 14.5H 07/30/19 18:15: White Blood Count [Pending], Lymphocytes [Pending], Percent CD3 Cells [Pending] , Absolute CD3 Count [Pending], Percent CD4 Cells [Pending], Absolute CD4 Count [Pending], T-Lymphocyte CD4/CD8 Ratio [Pending], Percent CD8 Cells [Pending], Absolute CD8 Count [Pending] 07/31/19 04:33: White Blood Count 3.7L, Red Blood Count 5.45, Hemoglobin 16.7, Hematocrit 48.1, Mean Corpuscular Volume 88, Mean Corpuscular Hemoglobin 30.6, Mean Corpuscular Hemoglobin Concent 34.7, Red Cell Distribution Width 11.9, Platelet Count 183, Mean Platelet Volume 6.1L, Neutrophils (%) (Auto) , Lymphocytes (%) (Auto) , Monocytes (%) (Auto) , Eosinophils (%) (Auto) , Basophils (%) (Auto) , Differential Total Cells Counted 100, Neutrophils % (Manual) 23L, Lymphocytes % (Manual) 65H, Monocytes % (Manual) 10, Eosinophils % (Manual) 2, Basophils % ( Manual) 0, Band Neutrophils 0, Platelet Estimate Adequate, Platelet Morphology Normal, Red Blood Cell Morphology Normal, Anisocytosis 1+, Sodium Level 140, Potassium Level 3.9, Chloride Level 106, Carbon Dioxide Level 25, Anion Gap 9, Blood Urea Nitrogen 6L, Creatinine 1.1, Estimat Glomerular Filtration Rate > 60 , Glucose Level 94, Calcium Level 8.5 Current Medications Medications (Trade) Dose Ordered Sig/Anthony Route PRN Reason Start Time Stop Time Status Last Admin Dose Admin Acetaminophen (Tylenol) 650 mg Q4H PRN ORAL fever (temp>100.5F) 07/29/19 18:12 08/28/19 18:11 Albuterol/ Ipratropium (Albuterol/ Ipratropium) 3 ml Q4H PRN HHN Shortness of Breath 07/29/19 18:12 08/03/19 18:11 07/30/19 18:01 Azithromycin (Zithromax) 250 mg DAILY ORAL 07/30/19 09:00 08/01/19 09:01 07/31/19 08:22 Cefepime HCl 2 gm/ Dextrose 110 ml @ 220 mls/hr EVERY 12 HOURS IV 07/29/19 21:00 08/03/19 20:59 07/31/19 10:08 Dextrose (Dextrose 50%) 25 ml Q30M PRN IV Hypoglycemia 07/29/19 18:15 08/26/19 18:44 Dextrose (Dextrose 50%) 50 ml Q30M PRN IV Hypoglycemia 07/29/19 18:15 08/26/19 18:44 Dextrose/Sodium Chloride 1,000 ml @ 100 mls/hr Q10H IV 07/29/19 18:12 08/28/19 18:11 07/31/19 10:10 Diphenhydramine HCl (Benadryl) 25 mg Q6H PRN ORAL Itching/Pruritis 07/29/19 18:12 08/28/19 18:11 Guaifenesin/ Dextromethorphan (Robitussin DM Syrup) 15 ml Q4H PRN ORAL For Cough 07/29/19 18:12 08/28/19 18:11 07/30/19 17:57 Heparin Sodium (Porcine) (Heparin 5000 units/ml) 5,000 units EVERY 12 HOURS SUBQ 07/29/19 21:00 08/27/19 08:59 07/31/19 08:25 Morphine Sulfate (Morphine Sulfate) 2 mg Q4H PRN IVP Severe Pain (Pain Scale 7-10) 07/29/19 18:12 08/05/19 18:11 Ondansetron HCl (Zofran) 4 mg Q6H PRN IVP Nausea & Vomiting 07/29/19 18:13 08/28/19 18:12 07/30/19 18:01 Patient Own Medication (Patient's Own Med) 1 ea DAILY ORAL 07/30/19 16:30 08/29/19 16:29 07/31/19 09:40 Polyethylene Glycol (Miralax) 17 gm DAILYPRN PRN ORAL Constipation 07/29/19 18:13 08/28/19 18:12 Temazepam (Restoril) 15 mg HSPRN PRN ORAL Insomnia 07/29/19 18:45 08/03/19 18:44 07/30/19 20:40 Vancomycin HCl (Vanco rx to dose) 1 ea DAILY PRN MISC PER RX PROTOCOL 07/30/19 09:00 08/26/19 18:44 Vancomycin HCl 1 gm/Dextrose 275 ml @ 183.708 mls/hr Q8HR@0000,0800,1600 IVPB 07/30/19 00:00 08/03/19 15:59 07/31/19 08:26 Elle Salgado MD Jul 31, 2019 11:21
[2019-07-31 12:00] VITALS: BP 104/57
--- NOTE | 2019-07-31 13:05 | GI Progress Note ---
Assessment/Plan Problems: (1) Malnutrition ICD Codes: E46 - Unspecified protein-calorie malnutrition SNOMED: 81373375 (2) Drug abuse ICD Codes: F19.10 - Other psychoactive substance abuse, uncomplicated SNOMED: 17605774 Status: stable Status Narrative Discussed with Dr. Ahumada. Assessment/Plan Urine toxicity positive for phencyclidine, amphetamines and marijuana History of colonoscopy x3 years with unremarkable findings No plans for any GI procedures at this time Symptomatic treatment Advance diet as tolerated Zofran as needed PPI IV p.o. hydration Follow labs The patient was seen and examined at bedside and all new and available data was reviewed in the patients chart. I agree with the above findings, impression and plan. (Patient seen earlier today. Signature stamp does not reflect patient encounter time.). - Stevie Ahumada MD Subjective Gastrointestinal/Abdominal: Reports: no symptoms Objective Last 24 Hour Vital Signs Date Time Temp Pulse Resp B/P (MAP) Pulse Ox O2 Delivery O2 Flow Rate FiO2 07/31/19 12:00 98.8 85 17 104/57 (73) 100 07/31/19 09:00 Nasal Cannula 2.0 07/31/19 08:35 98 Nasal Cannula 2.0 28 07/31/19 08:35 88 20 98 Nasal Cannula 2.0 28 07/31/19 08:00 98.5 68 16 134/84 (101) 99 07/31/19 00:00 98.1 72 19 160/90 (113) 100 07/30/19 20:22 Nasal Cannula 2.0 07/30/19 20:00 97.3 67 19 141/77 (98) 99 07/30/19 18:58 98 Nasal Cannula 2.0 28 07/30/19 18:58 89 18 98 Nasal Cannula 2.0 28 07/30/19 18:02 74 18 99 Nasal Cannula 2.0 28 72 16 97 07/30/19 16:00 97.1 63 19 132/85 (101) 99 07/30/19 16:00 96.8 67 20 136/71 (92) 100 Intake and Output 07/30/19 07/31/19 19:00 07:00 Intake Total 1980.000 ml 2085.000 ml Output Total 800 ml Balance 1980.000 ml 1285.000 ml Intake Oral 720 ml 240 ml IV Total 1260.000 ml 1485.000 ml Other 360 ml Output Urine Total 800 ml # Voids 2 Laboratory Tests Test 07/30/19 15:15 07/30/19 18:15 07/31/19 04:33 Vancomycin Level Trough 14.5 ug/mL (5.0-12.0) H White Blood Count Pending 3.7 K/UL (4.8-10.8) L Lymphocytes Pending Percent CD3 Cells Pending Absolute CD3 Count Pending Percent CD4 Cells Pending Absolute CD4 Count Pending T-Lymphocyte CD4/CD8 Ratio Pending Percent CD8 Cells Pending Absolute CD8 Count Pending Red Blood Count 5.45 M/UL (4.70-6.10) Hemoglobin 16.7 G/DL (14.2-18.0) Hematocrit 48.1 % (42.0-52.0) Mean Corpuscular Volume 88 FL (80-99) Mean Corpuscular Hemoglobin 30.6 PG (27.0-31.0) Mean Corpuscular Hemoglobin Concent 34.7 G/DL (32.0-36.0) Red Cell Distribution Width 11.9 % (11.6-14.8) Platelet Count 183 K/UL (150-450) Mean Platelet Volume 6.1 FL (6.5-10.1) L Neutrophils (%) (Auto) % (45.0-75.0) Lymphocytes (%) (Auto) % (20.0-45.0) Monocytes (%) (Auto) % (1.0-10.0) Eosinophils (%) (Auto) % (0.0-3.0) Basophils (%) (Auto) % (0.0-2.0) Differential Total Cells Counted 100 Neutrophils % (Manual) 23 % (45-75) L Lymphocytes % (Manual) 65 % (20-45) H Monocytes % (Manual) 10 % (1-10) Eosinophils % (Manual) 2 % (0-3) Basophils % (Manual) 0 % (0-2) Band Neutrophils 0 % (0-8) Platelet Estimate Adequate Platelet Morphology Normal Red Blood Cell Morphology Normal Anisocytosis 1+ Sodium Level 140 MMOL/L (136-145) Potassium Level 3.9 MMOL/L (3.5-5.1) Chloride Level 106 MMOL/L (98-107) Carbon Dioxide Level 25 MMOL/L (21-32) Anion Gap 9 mmol/L (5-15) Blood Urea Nitrogen 6 mg/dL (7-18) L Creatinine 1.1 MG/DL (0.55-1.30) Estimat Glomerular Filtration Rate > 60 mL/min (>60) Glucose Level 94 MG/DL (74-106) Calcium Level 8.5 MG/DL (8.5-10.1) Height (Feet): 5 Height (Inches): 9.00 Weight (Pounds): 185 General Appearance: WD/WN, no apparent distress, alert Cardiovascular: normal rate Respiratory/Chest: normal breath sounds, no respiratory distress Abdominal Exam: normal bowel sounds, non tender, soft Extremities: normal range of motion, non-tender Michael Cadena NP Jul 31, 2019 13:05
--- NOTE | 2019-07-31 13:12 | General Progress Note ---
Assessment/Plan Problem List: (1) HIV (human immunodeficiency virus infection) ICD Codes: B20 - Human immunodeficiency virus [HIV] disease SNOMED: 45329952 (2) Malnutrition ICD Codes: E46 - Unspecified protein-calorie malnutrition SNOMED: 73877943 (3) Sepsis ICD Codes: A41.9 - Sepsis, unspecified organism SNOMED: 46462827 (4) Atypical pneumonia ICD Codes: J18.9 - Pneumonia, unspecified organism SNOMED: 151693846 (5) Drug abuse ICD Codes: F19.10 - Other psychoactive substance abuse, uncomplicated SNOMED: 70450644 Status: stable, progressing Assessment/Plan: o2 pulm tx abx pt diet cbc bmp am Subjective Constitutional: Reports: weakness Respiratory: Reports: cough Allergies: Coded Allergies: EGG (Verified Allergy, Intermediate, Hives, 07/30/19) SHELLFISH DERIVED (Verified Allergy, Intermediate, Shortness of Breath, ) SOB and hives All Systems: reviewed and negative except above Subjective o2 nc calm in bed Objective Last 24 Hour Vital Signs Date Time Temp Pulse Resp B/P (MAP) Pulse Ox O2 Delivery O2 Flow Rate FiO2 07/31/19 12:00 98.8 85 17 104/57 (73) 100 07/31/19 09:00 Nasal Cannula 2.0 07/31/19 08:35 98 Nasal Cannula 2.0 28 07/31/19 08:35 88 20 98 Nasal Cannula 2.0 28 07/31/19 08:00 98.5 68 16 134/84 (101) 99 07/31/19 00:00 98.1 72 19 160/90 (113) 100 07/30/19 20:22 Nasal Cannula 2.0 07/30/19 20:00 97.3 67 19 141/77 (98) 99 07/30/19 18:58 98 Nasal Cannula 2.0 28 07/30/19 18:58 89 18 98 Nasal Cannula 2.0 28 07/30/19 18:02 74 18 99 Nasal Cannula 2.0 28 72 16 97 07/30/19 16:00 97.1 63 19 132/85 (101) 99 07/30/19 16:00 96.8 67 20 136/71 (92) 100 Intake and Output 07/30/19 07/31/19 19:00 07:00 Intake Total 1980.000 ml 2085.000 ml Output Total 800 ml Balance 1980.000 ml 1285.000 ml Intake Oral 720 ml 240 ml IV Total 1260.000 ml 1485.000 ml Other 360 ml Output Urine Total 800 ml # Voids 2 Laboratory Tests 07/30/19 15:15: Vancomycin Level Trough 14.5H 07/30/19 18:15: White Blood Count 4.9, Lymphocytes 73, Nucleated Red Blood Cells , Absolute Lymphocytes (Cell Immunity 3.6H, Percent CD3 Cells 91.5H, Absolute CD3 Count 3294H, Percent CD4 Cells 18.5L, Absolute CD4 Count 666, T-Lymphocyte CD4/CD8 Ratio 0.25L, Percent CD8 Cells 73.6H, Absolute CD8 Count 2650H 07/31/19 04:33: White Blood Count 3.7L, Red Blood Count 5.45, Hemoglobin 16.7, Hematocrit 48.1, Mean Corpuscular Volume 88, Mean Corpuscular Hemoglobin 30.6, Mean Corpuscular Hemoglobin Concent 34.7, Red Cell Distribution Width 11.9, Platelet Count 183, Mean Platelet Volume 6.1L, Neutrophils (%) (Auto) , Lymphocytes (%) (Auto) , Monocytes (%) (Auto) , Eosinophils (%) (Auto) , Basophils (%) (Auto) , Differential Total Cells Counted 100, Neutrophils % (Manual) 23L, Lymphocytes % (Manual) 65H, Monocytes % (Manual) 10, Eosinophils % (Manual) 2, Basophils % ( Manual) 0, Band Neutrophils 0, Platelet Estimate Adequate, Platelet Morphology Normal, Red Blood Cell Morphology Normal, Anisocytosis 1+, Sodium Level 140, Potassium Level 3.9, Chloride Level 106, Carbon Dioxide Level 25, Anion Gap 9, Blood Urea Nitrogen 6L, Creatinine 1.1, Estimat Glomerular Filtration Rate > 60 , Glucose Level 94, Calcium Level 8.5 Height (Feet): 5 Height (Inches): 9.00 Weight (Pounds): 185 General Appearance: lethargic EENT: normal ENT inspection Neck: normal alignment Cardiovascular: normal peripheral pulses, normal rate, regular rhythm Respiratory/Chest: chest wall non-tender, lungs clear, normal breath sounds Abdomen: normal bowel sounds, non tender, soft Extremities: normal inspection Edema: no edema noted Arm (L), no edema noted Arm (R), no edema noted Leg (L), no edema noted Leg (R), no edema noted Pedal (L), no edema noted Pedal (R), no edema noted Generalized Neurologic: motor weakness Skin: normal pigmentation, warm/dry Ion Temple DO Jul 31, 2019 13:12
--- NOTE | 2019-07-31 13:34 | Diagnostic Imaging Report ---
Indication: Dyspnea Technique: One view of the chest Comparison: none Findings: There is some atelectasis and some patchy infiltrate at the left lung base. This is similar to the prior exam. There is central bronchial wall thickening. Findings are overall unchanged Impression: Unchanged left basilar atelectasis and possible patchy infiltrate, since 07/27/2019 Central bronchial wall thickening, likely indicating bronchitis changes
--- NOTE | 2019-07-31 14:38 | Infectious Diseases Prog Note ---
Assessment/Plan Assessment/Plan Assessment/Plan: 59yo gentleman with PMH tobacco and marijuana abuse, also found to have PCP, amphetamine positive presents with one week of fever, chills , cough, sob, diarrhea. ID consulted for recommendation Tmax 100.3, SP No leukocytosis Lactate 1.6 CAP? 07/27 flu swab negative 07/27 CTPA: No evidence of pulmonary embolus, aortic dissection or aneurysm. Patchy bilateral infiltrates. Consider pneumonia. Correlate clinically. Hiatal hernia. Degenerative changes of the spine. 07/28 TTE: EF 60%, mild diastolic dysfunction 07/31 CXr: Unchanged left basilar atelectasis and possible patchy infiltrate, since 07/27/2019. Central bronchial wall thickening, likely indicating bronchitis changes 07/27 UA negative r/o bacteremia 06/26 BCx: ngtd HIV dx 1980s reports daily compliance with Biktarvy(previously used Genvoya, Truvada, etc) CD4 666 MRSA screen positive amphetamine, marijuana, PCP positive tobacco use Plan: cefepime and vancomycin #5/5 continue azithromycin #5/5 SP Ceftriaxone 07/27 f/u bcx trend temp, CBC Thank you for this consult. [facility] will continue to follow the patient with you. Subjective Allergies: Coded Allergies: EGG (Verified Allergy, Intermediate, Hives, 07/30/19) SHELLFISH DERIVED (Verified Allergy, Intermediate, Shortness of Breath, ) SOB and hives Subjective Afebrile. on 2L. continues to report SOB when he walks. persistent dry cough. R thigh cramping. Objective Vital Signs Last 24 Hour Vital Signs Date Time Temp Pulse Resp B/P (MAP) Pulse Ox O2 Delivery O2 Flow Rate FiO2 07/31/19 12:00 98.8 85 17 104/57 (73) 100 07/31/19 09:00 Nasal Cannula 2.0 07/31/19 08:35 98 Nasal Cannula 2.0 28 07/31/19 08:35 88 20 98 Nasal Cannula 2.0 28 07/31/19 08:00 98.5 68 16 134/84 (101) 99 07/31/19 00:00 98.1 72 19 160/90 (113) 100 07/30/19 20:22 Nasal Cannula 2.0 07/30/19 20:00 97.3 67 19 141/77 (98) 99 07/30/19 18:58 98 Nasal Cannula 2.0 28 07/30/19 18:58 89 18 98 Nasal Cannula 2.0 28 07/30/19 18:02 74 18 99 Nasal Cannula 2.0 28 72 16 97 07/30/19 16:00 97.1 63 19 132/85 (101) 99 07/30/19 16:00 96.8 67 20 136/71 (92) 100 Height (Feet): 5 Height (Inches): 9.00 Weight (Pounds): 185 Objective VS: afebrile. RA. Gen: NAD HEENT: anicteric sclera CV: RRR Resp: coarse crackles diffusely Abd: soft. no TTP. slightly distended. Ext: no LE edema Laboratory Tests Test 07/30/19 15:15 07/30/19 18:15 07/31/19 04:33 Vancomycin Level Trough 14.5 ug/mL (5.0-12.0) H White Blood Count 4.9 x10E3/uL (3.4-10.8) 3.7 K/UL (4.8-10.8) L Lymphocytes 73 % (Not Estab.) Nucleated Red Blood Cells (.) Absolute Lymphocytes (Cell Immunity 3.6 x10E3/uL (0.7-3.1) H Percent CD3 Cells 91.5 % (57.5-86.2) H Absolute CD3 Count 3294 /uL (622-2402) H Percent CD4 Cells 18.5 % (30.8-58.5) L Absolute CD4 Count 666 /uL (359-1519) T-Lymphocyte CD4/CD8 Ratio 0.25 (0.92-3.72) L Percent CD8 Cells 73.6 % (12.0-35.5) H Absolute CD8 Count 2650 /uL (109-897) H Red Blood Count 5.45 M/UL (4.70-6.10) Hemoglobin 16.7 G/DL (14.2-18.0) Hematocrit 48.1 % (42.0-52.0) Mean Corpuscular Volume 88 FL (80-99) Mean Corpuscular Hemoglobin 30.6 PG (27.0-31.0) Mean Corpuscular Hemoglobin Concent 34.7 G/DL (32.0-36.0) Red Cell Distribution Width 11.9 % (11.6-14.8) Platelet Count 183 K/UL (150-450) Mean Platelet Volume 6.1 FL (6.5-10.1) L Neutrophils (%) (Auto) % (45.0-75.0) Lymphocytes (%) (Auto) % (20.0-45.0) Monocytes (%) (Auto) % (1.0-10.0) Eosinophils (%) (Auto) % (0.0-3.0) Basophils (%) (Auto) % (0.0-2.0) Differential Total Cells Counted 100 Neutrophils % (Manual) 23 % (45-75) L Lymphocytes % (Manual) 65 % (20-45) H Monocytes % (Manual) 10 % (1-10) Eosinophils % (Manual) 2 % (0-3) Basophils % (Manual) 0 % (0-2) Band Neutrophils 0 % (0-8) Platelet Estimate Adequate Platelet Morphology Normal Red Blood Cell Morphology Normal Anisocytosis 1+ Sodium Level 140 MMOL/L (136-145) Potassium Level 3.9 MMOL/L (3.5-5.1) Chloride Level 106 MMOL/L (98-107) Carbon Dioxide Level 25 MMOL/L (21-32) Anion Gap 9 mmol/L (5-15) Blood Urea Nitrogen 6 mg/dL (7-18) L Creatinine 1.1 MG/DL (0.55-1.30) Estimat Glomerular Filtration Rate > 60 mL/min (>60) Glucose Level 94 MG/DL (74-106) Calcium Level 8.5 MG/DL (8.5-10.1) Current Medications Medications (Trade) Dose Ordered Sig/Anthony Route PRN Reason Start Time Stop Time Status Last Admin Dose Admin Acetaminophen (Tylenol) 650 mg Q4H PRN ORAL fever (temp>100.5F) 07/29/19 18:12 08/28/19 18:11 Albuterol/ Ipratropium (Albuterol/ Ipratropium) 3 ml Q4H PRN HHN Shortness of Breath 07/29/19 18:12 08/03/19 18:11 07/30/19 18:01 Azithromycin (Zithromax) 250 mg DAILY ORAL 07/30/19 09:00 08/01/19 09:01 07/31/19 08:22 Cefepime HCl 2 gm/ Dextrose 110 ml @ 220 mls/hr EVERY 12 HOURS IV 07/29/19 21:00 08/03/19 20:59 07/31/19 10:08 Dextrose (Dextrose 50%) 25 ml Q30M PRN IV Hypoglycemia 07/29/19 18:15 08/26/19 18:44 Dextrose (Dextrose 50%) 50 ml Q30M PRN IV Hypoglycemia 07/29/19 18:15 08/26/19 18:44 Dextrose/Sodium Chloride 1,000 ml @ 100 mls/hr Q10H IV 07/29/19 18:12 08/28/19 18:11 07/31/19 10:10 Diphenhydramine HCl (Benadryl) 25 mg Q6H PRN ORAL Itching/Pruritis 07/29/19 18:12 08/28/19 18:11 Guaifenesin/ Dextromethorphan (Robitussin DM Syrup) 15 ml Q4H PRN ORAL For Cough 07/29/19 18:12 08/28/19 18:11 07/30/19 17:57 Heparin Sodium (Porcine) (Heparin 5000 units/ml) 5,000 units EVERY 12 HOURS SUBQ 07/29/19 21:00 08/27/19 08:59 07/31/19 08:25 Morphine Sulfate (Morphine Sulfate) 2 mg Q4H PRN IVP Severe Pain (Pain Scale 7-10) 07/29/19 18:12 08/05/19 18:11 Ondansetron HCl (Zofran) 4 mg Q6H PRN IVP Nausea & Vomiting 07/29/19 18:13 08/28/19 18:12 07/30/19 18:01 Patient Own Medication (Patient's Own Med) 1 ea DAILY ORAL 07/30/19 16:30 08/29/19 16:29 07/31/19 09:40 Polyethylene Glycol (Miralax) 17 gm DAILYPRN PRN ORAL Constipation 07/29/19 18:13 08/28/19 18:12 Temazepam (Restoril) 15 mg HSPRN PRN ORAL Insomnia 07/29/19 18:45 08/03/19 18:44 07/30/19 20:40 Vancomycin HCl (Vanco rx to dose) 1 ea DAILY PRN MISC PER RX PROTOCOL 07/30/19 09:00 08/26/19 18:44 Vancomycin HCl 1 gm/Dextrose 275 ml @ 183.708 mls/hr Q8HR@0000,0800,1600 IVPB 07/30/19 00:00 08/03/19 15:59 07/31/19 08:26 Olman Torres MD Jul 31, 2019 14:38
[2019-07-31 16:00] VITALS: BP 139/74
[2019-07-31] MEDS: Guaifenesin/DM 10ml syrup ORAL PRN ×2 (16:43→23:28)
[2019-07-31] MEDS: Albuterol/Ipratropium 3ml neb HHN PRN (16:53)
--- NOTE | 2019-07-31 19:15 | NUR ---
HAND-OFF: Report given to DEBORAH Salazar.
--- NOTE | 2019-07-31 20:04 | NUR ---
NURSE NOTES: PATIENT IN BED, ALERT AND ORIENTED X4, TALKING ON THE PHONE. NO COMPLAINTS OF PAIN AT THIS TIME. NO S/S RESPIRATORY DISTRESS NOTED. BED IN LOWEST POSITION, CALL LIGHT WITHIN REACH. PATIENT HAS NO IV ACCESS AT THIS TIME, WILL ATTEMPT AGAIN. WILL CONTINUE TO MONITOR.
[2019-07-31 20:16] VITALS: BP 136/80
[2019-08-01] VITALS (7 sets, daily range): BP systolic 126–154; BP diastolic 71–95
[2019-08-01] MEDS: Vancomycin 1 GM in D5W 275 ML IVPB SCH ×2 (00:38→08:08)
[2019-08-01] MEDS: D5NS 1,000 ML IV SCH ×2 (05:21→17:29)
[2019-08-01 06:16] LABS: HEMATOCRIT 47.2 % (42.0-52.0); HEMOGLOBIN 16.4 G/DL (14.2-18.0); MEAN CORPUSCULAR VOLUME 87 FL (80-99); PLATELET COUNT 202 K/UL (150-450); RED BLOOD COUNT 5.41 M/UL (4.70-6.10); RED CELL DISTRIBUTION WIDTH 11.7 % (11.6-14.8); WHITE BLOOD COUNT 4.1 K/UL (4.8-10.8)
--- NOTE | 2019-08-01 06:32 | NUR ---
NURSES NOTES; RESIDENT IS SLEEPING COMFORTABLY ON BED IN SEMI FOWLERS POSITION. EASILY AROUSABLE. ROOM TEMPERATURE ADJUSTED BASED ON RESIDENT'S PREFERENCE. NEEDS ATTENDED AND MET. PLACED CALL LIGHT AND LIGHT BUTTON WITHIN EASY REACH.
[2019-08-01 06:42] LABS: ANION GAP 11 mmol/L (5-15); BLOOD UREA NITROGEN 7 mg/dL (7-18); CALCIUM 8.7 MG/DL (8.5-10.1); CARBON DIOXIDE 24 MMOL/L (21-32); CHLORIDE 106 MMOL/L (98-107); CREATININE 0.9 MG/DL (0.55-1.30); POTASSIUM 4.1 MMOL/L (3.5-5.1); SODIUM 141 MMOL/L (136-145)
--- NOTE | 2019-08-01 07:32 | NUR ---
HAND-OFF: Report given to GALILEA ESPINOZA RN.
--- NOTE | 2019-08-01 07:37 | NUR ---
NURSE NOTES: Patient received in stable condition, eating breakfast. Alert and orientedx4, breathing unlabored with nasal cannula. Denies SOB or pain at this time. No signs of apparent distress noted. IV site on left arm patent and intact, fluids running at 100cc/hr. Bed locked in lowest position, call light placed within reach. Will continue to monitor.
[2019-08-01] MEDS: Azithromycin 250mg tab ORAL SCH (08:08)
[2019-08-01] MEDS: Heparin 5000 units/ml inj SUBQ SCH ×2 (08:13→21:00)
--- NOTE | 2019-08-01 08:56 | NUR ---
HAND-OFF: Report given to Dilshad CABRERA.
--- NOTE | 2019-08-01 09:23 | General Progress Note ---
Assessment/Plan Problem List: (1) HIV (human immunodeficiency virus infection) ICD Codes: B20 - Human immunodeficiency virus [HIV] disease SNOMED: 60994412 (2) Malnutrition ICD Codes: E46 - Unspecified protein-calorie malnutrition SNOMED: 31317484 (3) Sepsis ICD Codes: A41.9 - Sepsis, unspecified organism SNOMED: 99954833 (4) Atypical pneumonia ICD Codes: J18.9 - Pneumonia, unspecified organism SNOMED: 378015508 (5) Drug abuse ICD Codes: F19.10 - Other psychoactive substance abuse, uncomplicated SNOMED: 72073344 Status: stable, progressing Assessment/Plan: o2 pulm tx abx pt diet cbc bmp am dc plan if clear Subjective Constitutional: Reports: weakness Allergies: Coded Allergies: EGG (Verified Allergy, Intermediate, Hives, 07/30/19) SHELLFISH DERIVED (Verified Allergy, Intermediate, Shortness of Breath, ) SOB and hives All Systems: reviewed and negative except above Subjective o2 nc calm in bed Objective Last 24 Hour Vital Signs Date Time Temp Pulse Resp B/P (MAP) Pulse Ox O2 Delivery O2 Flow Rate FiO2 08/01/19 09:04 97.9 79 18 137/84 (101) 98 08/01/19 08:00 97.9 79 18 137/84 (101) 98 08/01/19 07:15 98 Nasal Cannula 2.0 28 08/01/19 04:05 97.9 81 19 154/91 (112) 98 08/01/19 00:13 97.9 74 20 132/85 (101) 99 07/31/19 21:00 Nasal Cannula 2.0 07/31/19 20:16 98.2 66 20 136/80 (98) 97 07/31/19 20:14 98 Nasal Cannula 2.0 28 07/31/19 20:14 65 18 98 Nasal Cannula 2.0 28 07/31/19 16:55 65 18 99 Nasal Cannula 2.0 28 66 16 99 07/31/19 16:00 98.2 68 19 139/74 (95) 96 07/31/19 12:00 98.8 85 17 104/57 (73) 100 Intake and Output 07/31/19 08/01/19 18:59 06:59 Intake Total 2154.832 ml 1435.000 ml Output Total 900 ml 1070 ml Balance 1254.832 ml 365.000 ml Intake Oral 500 ml 750 ml IV Total 1654.832 ml 685.000 ml Output Urine Total 900 ml 1070 ml # Voids 1 Laboratory Tests 08/01/19 05:14: White Blood Count 4.1L, Red Blood Count 5.41, Hemoglobin 16.4, Hematocrit 47.2, Mean Corpuscular Volume 87, Mean Corpuscular Hemoglobin 30.4, Mean Corpuscular Hemoglobin Concent 34.8, Red Cell Distribution Width 11.7, Platelet Count 202, Mean Platelet Volume 6.8, Neutrophils (%) (Auto) , Lymphocytes (%) (Auto) , Monocytes (%) (Auto) , Eosinophils (%) (Auto) , Basophils (%) (Auto) , Sodium Level 141, Potassium Level 4.1, Chloride Level 106, Carbon Dioxide Level 24, Anion Gap 11, Blood Urea Nitrogen 7, Creatinine 0.9, Estimat Glomerular Filtration Rate > 60, Glucose Level 94, Calcium Level 8.7 Height (Feet): 5 Height (Inches): 9.00 Weight (Pounds): 185 General Appearance: lethargic EENT: normal ENT inspection Neck: normal alignment Cardiovascular: normal peripheral pulses, normal rate, regular rhythm Respiratory/Chest: chest wall non-tender, lungs clear, normal breath sounds Abdomen: normal bowel sounds, non tender, soft Extremities: normal inspection Edema: no edema noted Arm (L), no edema noted Arm (R), no edema noted Leg (L), no edema noted Leg (R), no edema noted Pedal (L), no edema noted Pedal (R), no edema noted Generalized Neurologic: motor weakness Skin: normal pigmentation, warm/dry Ion Temple DO Aug 01, 2019 09:23
[2019-08-01] MEDS: BIKTARVY ORAL SCH (09:25)
[2019-08-01] MEDS: Cefepime HCl 2 GM in D5W 110 ML IV SCH ×2 (09:25→10:09)
--- NOTE | 2019-08-01 10:18 | GI Progress Note ---
Assessment/Plan Problems: (1) Malnutrition ICD Codes: E46 - Unspecified protein-calorie malnutrition SNOMED: 74129112 (2) Drug abuse ICD Codes: F19.10 - Other psychoactive substance abuse, uncomplicated SNOMED: 20385098 Status: stable, unchanged Status Narrative Discussed with Dr. Ahumada. Assessment/Plan Urine toxicity positive for phencyclidine, amphetamines and marijuana History of colonoscopy x3 years with unremarkable findings No plans for any GI procedures at this time fu pulmonary recommendations Symptomatic treatment Advance diet as tolerated Zofran as needed PPI IV p.o. hydration Follow labs The patient was seen and examined at bedside and all new and available data was reviewed in the patients chart. I agree with the above findings, impression and plan. (Patient seen earlier today. Signature stamp does not reflect patient encounter time.). - Stevie Ahumada MD Subjective Gastrointestinal/Abdominal: Reports: no symptoms Objective Last 24 Hour Vital Signs Date Time Temp Pulse Resp B/P (MAP) Pulse Ox O2 Delivery O2 Flow Rate FiO2 08/01/19 09:04 97.9 79 18 137/84 (101) 98 08/01/19 08:00 97.9 79 18 137/84 (101) 98 08/01/19 07:15 98 Nasal Cannula 2.0 28 08/01/19 04:05 97.9 81 19 154/91 (112) 98 08/01/19 00:13 97.9 74 20 132/85 (101) 99 07/31/19 21:00 Nasal Cannula 2.0 07/31/19 20:16 98.2 66 20 136/80 (98) 97 07/31/19 20:14 98 Nasal Cannula 2.0 28 07/31/19 20:14 65 18 98 Nasal Cannula 2.0 28 07/31/19 16:55 65 18 99 Nasal Cannula 2.0 28 66 16 99 07/31/19 16:00 98.2 68 19 139/74 (95) 96 07/31/19 12:00 98.8 85 17 104/57 (73) 100 Intake and Output 07/31/19 08/01/19 18:59 06:59 Intake Total 2154.832 ml 1435.000 ml Output Total 900 ml 1070 ml Balance 1254.832 ml 365.000 ml Intake Oral 500 ml 750 ml IV Total 1654.832 ml 685.000 ml Output Urine Total 900 ml 1070 ml # Voids 1 Laboratory Tests Test 08/01/19 05:14 White Blood Count 4.1 K/UL (4.8-10.8) L Red Blood Count 5.41 M/UL (4.70-6.10) Hemoglobin 16.4 G/DL (14.2-18.0) Hematocrit 47.2 % (42.0-52.0) Mean Corpuscular Volume 87 FL (80-99) Mean Corpuscular Hemoglobin 30.4 PG (27.0-31.0) Mean Corpuscular Hemoglobin Concent 34.8 G/DL (32.0-36.0) Red Cell Distribution Width 11.7 % (11.6-14.8) Platelet Count 202 K/UL (150-450) Mean Platelet Volume 6.8 FL (6.5-10.1) Neutrophils (%) (Auto) % (45.0-75.0) Lymphocytes (%) (Auto) % (20.0-45.0) Monocytes (%) (Auto) % (1.0-10.0) Eosinophils (%) (Auto) % (0.0-3.0) Basophils (%) (Auto) % (0.0-2.0) Sodium Level 141 MMOL/L (136-145) Potassium Level 4.1 MMOL/L (3.5-5.1) Chloride Level 106 MMOL/L (98-107) Carbon Dioxide Level 24 MMOL/L (21-32) Anion Gap 11 mmol/L (5-15) Blood Urea Nitrogen 7 mg/dL (7-18) Creatinine 0.9 MG/DL (0.55-1.30) Estimat Glomerular Filtration Rate > 60 mL/min (>60) Glucose Level 94 MG/DL (74-106) Calcium Level 8.7 MG/DL (8.5-10.1) Height (Feet): 5 Height (Inches): 9.00 Weight (Pounds): 185 General Appearance: WD/WN, no apparent distress, alert Cardiovascular: normal rate Respiratory/Chest: normal breath sounds, no respiratory distress Abdominal Exam: normal bowel sounds, non tender, soft Extremities: normal range of motion, non-tender Michael Cadena [employer] Aug 01, 2019 10:18
--- NOTE | 2019-08-01 11:20 | NUR ---
NURSE NOTES: patient began to cough and had a small amount oif clear emesis. Zofran was given.
[2019-08-01] MEDS: Albuterol/Ipratropium 3ml neb HHN PRN (11:26)
--- NOTE | 2019-08-01 11:52 | NUR ---
Social Work This SW received a consult due to substance abuse. This Sw met with patient who remains alert/oriented x4, making his own decisions, remains independent with ADLs, ambulation, does not require any DME. 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 Patient is planning to apply for disability due to shortness of breath (provided information to patient regarding this). Patient admitted to substance abuse (Meth), but explains he quit one month ago, refusing any substance abuse resources. Patient denied any mental health concerns, denied depression, anxiety or any suicidal ideations. No further needs or concerns identified at this time.
--- NOTE | 2019-08-01 12:01 | NUR ---
*-* DISCHARGE PLANNING *-* PATIENT HAS BEEN REFERRED TO: [email or web address] [phone] Work [phone] Work Work Fax
--- NOTE | 2019-08-01 12:25 | Pulmonology Progress Note ---
Assessment/Plan Problems: (1) Atypical pneumonia (2) Tobacco abuse (3) HIV (human immunodeficiency virus infection) (4) Drug abuse Assessment/Plan still short of breath repeat CXR didn't show much improvement check sputum ( nothing available yet continue abx, check electrolytes med/surg All medications and treatment were reviewed. Subjective ROS Limited/Unobtainable: No Constitutional: Reports: no symptoms HEENT: Repors: no symptoms Allergies: Coded Allergies: EGG (Verified Allergy, Intermediate, Hives, 07/30/19) SHELLFISH DERIVED (Verified Allergy, Intermediate, Shortness of Breath, ) SOB and hives Objective Last 24 Hour Vital Signs Date Time Temp Pulse Resp B/P (MAP) Pulse Ox O2 Delivery O2 Flow Rate FiO2 08/01/19 11:26 75 18 100 Nasal Cannula 3.0 32 71 18 97 08/01/19 09:04 97.9 79 18 137/84 (101) 98 08/01/19 09:00 Nasal Cannula 2.0 08/01/19 08:00 97.9 79 18 137/84 (101) 98 08/01/19 07:15 98 Nasal Cannula 2.0 28 08/01/19 04:05 97.9 81 19 154/91 (112) 98 08/01/19 00:13 97.9 74 20 132/85 (101) 99 07/31/19 21:00 Nasal Cannula 2.0 07/31/19 20:16 98.2 66 20 136/80 (98) 97 07/31/19 20:14 98 Nasal Cannula 2.0 28 07/31/19 20:14 65 18 98 Nasal Cannula 2.0 28 07/31/19 16:55 65 18 99 Nasal Cannula 2.0 28 66 16 99 07/31/19 16:00 98.2 68 19 139/74 (95) 96 Intake and Output 07/31/19 08/01/19 18:59 06:59 Intake Total 2154.832 ml 1435.000 ml Output Total 900 ml 1070 ml Balance 1254.832 ml 365.000 ml Intake Oral 500 ml 750 ml IV Total 1654.832 ml 685.000 ml Output Urine Total 900 ml 1070 ml # Voids 1 General Appearance: WD/WN HEENT: normocephalic, atraumatic Respiratory/Chest: chest wall non-tender, lungs clear Cardiovascular: normal peripheral pulses, regular rhythm Genitourinary: normal external genitalia Extremities: no clubbing Skin: no lesions Neurologic/Psychiatric: patient care II-XII grossly normal Lymphatic: no neck adenopathy Laboratory Tests 08/01/19 05:14: White Blood Count 4.1L, Red Blood Count 5.41, Hemoglobin 16.4, Hematocrit 47.2, Mean Corpuscular Volume 87, Mean Corpuscular Hemoglobin 30.4, Mean Corpuscular Hemoglobin Concent 34.8, Red Cell Distribution Width 11.7, Platelet Count 202, Mean Platelet Volume 6.8, Neutrophils (%) (Auto) , Lymphocytes (%) (Auto) , Monocytes (%) (Auto) , Eosinophils (%) (Auto) , Basophils (%) (Auto) , Sodium Level 141, Potassium Level 4.1, Chloride Level 106, Carbon Dioxide Level 24, Anion Gap 11, Blood Urea Nitrogen 7, Creatinine 0.9, Estimat Glomerular Filtration Rate > 60, Glucose Level 94, Calcium Level 8.7 Current Medications Medications (Trade) Dose Ordered Sig/Anthony Route PRN Reason Start Time Stop Time Status Last Admin Dose Admin Acetaminophen (Tylenol) 650 mg Q4H PRN ORAL fever (temp>100.5F) 07/29/19 18:12 08/28/19 18:11 Albuterol/ Ipratropium (Albuterol/ Ipratropium) 3 ml Q4H PRN HHN Shortness of Breath 07/29/19 18:12 08/03/19 18:11 08/01/19 11:26 Cefepime HCl 2 gm/ Dextrose 110 ml @ 220 mls/hr EVERY 12 HOURS IV 07/29/19 21:00 08/03/19 20:59 08/01/19 10:09 Dextrose (Dextrose 50%) 25 ml Q30M PRN IV Hypoglycemia 07/29/19 18:15 08/26/19 18:44 Dextrose (Dextrose 50%) 50 ml Q30M PRN IV Hypoglycemia 07/29/19 18:15 08/26/19 18:44 Dextrose/Sodium Chloride 1,000 ml @ 100 mls/hr Q10H IV 07/29/19 18:12 08/28/19 18:11 08/01/19 05:21 Diphenhydramine HCl (Benadryl) 25 mg Q6H PRN ORAL Itching/Pruritis 07/29/19 18:12 08/28/19 18:11 Guaifenesin/ Dextromethorphan (Robitussin DM Syrup) 15 ml Q4H PRN ORAL For Cough 07/29/19 18:12 08/28/19 18:11 07/31/19 23:28 Heparin Sodium (Porcine) (Heparin 5000 units/ml) 5,000 units EVERY 12 HOURS SUBQ 07/29/19 21:00 08/27/19 08:59 08/01/19 08:13 Morphine Sulfate (Morphine Sulfate) 2 mg Q4H PRN IVP Severe Pain (Pain Scale 7-10) 07/29/19 18:12 08/05/19 18:11 Ondansetron HCl (Zofran) 4 mg Q6H PRN IVP Nausea & Vomiting 07/29/19 18:13 08/28/19 18:12 08/01/19 11:26 Patient Own Medication (Patient's Own Med) 1 ea DAILY ORAL 07/30/19 16:30 08/29/19 16:29 08/01/19 09:25 Polyethylene Glycol (Miralax) 17 gm DAILYPRN PRN ORAL Constipation 07/29/19 18:13 08/28/19 18:12 Temazepam (Restoril) 15 mg HSPRN PRN ORAL Insomnia 07/29/19 18:45 08/03/19 18:44 07/31/19 23:38 Vancomycin HCl (Vanco rx to dose) 1 ea DAILY PRN MISC PER RX PROTOCOL 07/30/19 09:00 08/26/19 18:44 Vancomycin HCl 1 gm/Dextrose 275 ml @ 183.708 mls/hr Q8HR@0000,0800,1600 IVPB 07/30/19 00:00 08/03/19 15:59 08/01/19 08:08 Elle Salgado MD Aug 01, 2019 12:25
--- NOTE | 2019-08-01 16:14 | Infectious Diseases Prog Note ---
Assessment/Plan Assessment/Plan Assessment/Plan: 59yo gentleman with PMH tobacco and marijuana abuse, also found to have PCP, amphetamine positive presents with one week of fever, chills , cough, sob, diarrhea. ID consulted for recommendation Tmax 100.3, SP No leukocytosis Lactate 1.6 CAP? 07/27 flu swab negative 07/27 CTPA: No evidence of pulmonary embolus, aortic dissection or aneurysm. Patchy bilateral infiltrates. Consider pneumonia. Correlate clinically. Hiatal hernia. Degenerative changes of the spine. 07/28 TTE: EF 60%, mild diastolic dysfunction 07/31 CXR: Unchanged left basilar atelectasis and possible patchy infiltrate, since 07/27/2019. Central bronchial wall thickening, likely indicating bronchitis changes 07/27 UA negative r/o bacteremia 06/26 BCx: ngtd HIV dx 1980s reports daily compliance with Biktarvy(previously used Genvoya, Truvada, etc) CD4 666 MRSA screen positive amphetamine, marijuana, PCP positive tobacco use Plan: monitor off antibiotics 07/31 SP cefepime, vancomycin, azithromycin #5 SP Ceftriaxone 07/27 f/u bcx trend temp, CBC Thank you for this consult. [facility] will continue to follow the patient with you. Subjective Allergies: Coded Allergies: EGG (Verified Allergy, Intermediate, Hives, 07/30/19) SHELLFISH DERIVED (Verified Allergy, Intermediate, Shortness of Breath, ) SOB and hives Subjective Afebrile. on 2L. pt was seen walking around the [place] with his friend yesterday talking and without distress. No leukocytosis Objective Vital Signs Last 24 Hour Vital Signs Date Time Temp Pulse Resp B/P (MAP) Pulse Ox O2 Delivery O2 Flow Rate FiO2 08/01/19 12:00 98.5 70 18 127/75 (92) 95 08/01/19 11:26 75 18 100 Nasal Cannula 3.0 32 71 18 97 08/01/19 09:04 97.9 79 18 137/84 (101) 98 08/01/19 09:00 Nasal Cannula 2.0 08/01/19 08:00 97.9 79 18 137/84 (101) 98 08/01/19 07:15 98 Nasal Cannula 2.0 28 08/01/19 04:05 97.9 81 19 154/91 (112) 98 08/01/19 00:13 97.9 74 20 132/85 (101) 99 07/31/19 21:00 Nasal Cannula 2.0 07/31/19 20:16 98.2 66 20 136/80 (98) 97 07/31/19 20:14 98 Nasal Cannula 2.0 28 07/31/19 20:14 65 18 98 Nasal Cannula 2.0 28 07/31/19 16:55 65 18 99 Nasal Cannula 2.0 28 66 16 99 Height (Feet): 5 Height (Inches): 9.00 Weight (Pounds): 185 Objective VS: afebrile. RA. Gen: NAD HEENT: anicteric sclera CV: RRR Resp: coarse crackles diffusely Abd: soft. no TTP. slightly distended. Ext: no LE edema Laboratory Tests Test 08/01/19 05:14 White Blood Count 4.1 K/UL (4.8-10.8) L Red Blood Count 5.41 M/UL (4.70-6.10) Hemoglobin 16.4 G/DL (14.2-18.0) Hematocrit 47.2 % (42.0-52.0) Mean Corpuscular Volume 87 FL (80-99) Mean Corpuscular Hemoglobin 30.4 PG (27.0-31.0) Mean Corpuscular Hemoglobin Concent 34.8 G/DL (32.0-36.0) Red Cell Distribution Width 11.7 % (11.6-14.8) Platelet Count 202 K/UL (150-450) Mean Platelet Volume 6.8 FL (6.5-10.1) Neutrophils (%) (Auto) % (45.0-75.0) Lymphocytes (%) (Auto) % (20.0-45.0) Monocytes (%) (Auto) % (1.0-10.0) Eosinophils (%) (Auto) % (0.0-3.0) Basophils (%) (Auto) % (0.0-2.0) Sodium Level 141 MMOL/L (136-145) Potassium Level 4.1 MMOL/L (3.5-5.1) Chloride Level 106 MMOL/L (98-107) Carbon Dioxide Level 24 MMOL/L (21-32) Anion Gap 11 mmol/L (5-15) Blood Urea Nitrogen 7 mg/dL (7-18) Creatinine 0.9 MG/DL (0.55-1.30) Estimat Glomerular Filtration Rate > 60 mL/min (>60) Glucose Level 94 MG/DL (74-106) Calcium Level 8.7 MG/DL (8.5-10.1) Current Medications Medications (Trade) Dose Ordered Sig/Anthony Route PRN Reason Start Time Stop Time Status Last Admin Dose Admin Acetaminophen (Tylenol) 650 mg Q4H PRN ORAL fever (temp>100.5F) 07/29/19 18:12 08/28/19 18:11 Albuterol/ Ipratropium (Albuterol/ Ipratropium) 3 ml Q4H PRN HHN Shortness of Breath 07/29/19 18:12 08/03/19 18:11 08/01/19 11:26 Cefepime HCl 2 gm/ Dextrose 110 ml @ 220 mls/hr EVERY 12 HOURS IV 07/29/19 21:00 08/03/19 20:59 08/01/19 10:09 Dextrose (Dextrose 50%) 25 ml Q30M PRN IV Hypoglycemia 07/29/19 18:15 08/26/19 18:44 Dextrose (Dextrose 50%) 50 ml Q30M PRN IV Hypoglycemia 07/29/19 18:15 08/26/19 18:44 Dextrose/Sodium Chloride 1,000 ml @ 100 mls/hr Q10H IV 07/29/19 18:12 08/28/19 18:11 08/01/19 05:21 Diphenhydramine HCl (Benadryl) 25 mg Q6H PRN ORAL Itching/Pruritis 07/29/19 18:12 08/28/19 18:11 Guaifenesin/ Dextromethorphan (Robitussin DM Syrup) 15 ml Q4H PRN ORAL For Cough 07/29/19 18:12 08/28/19 18:11 07/31/19 23:28 Heparin Sodium (Porcine) (Heparin 5000 units/ml) 5,000 units EVERY 12 HOURS SUBQ 07/29/19 21:00 08/27/19 08:59 08/01/19 08:13 Morphine Sulfate (Morphine Sulfate) 2 mg Q4H PRN IVP Severe Pain (Pain Scale 7-10) 07/29/19 18:12 08/05/19 18:11 Ondansetron HCl (Zofran) 4 mg Q6H PRN IVP Nausea & Vomiting 07/29/19 18:13 08/28/19 18:12 08/01/19 11:26 Patient Own Medication (Patient's Own Med) 1 ea DAILY ORAL 07/30/19 16:30 08/29/19 16:29 08/01/19 09:25 Polyethylene Glycol (Miralax) 17 gm DAILYPRN PRN ORAL Constipation 07/29/19 18:13 08/28/19 18:12 Temazepam (Restoril) 15 mg HSPRN PRN ORAL Insomnia 07/29/19 18:45 08/03/19 18:44 07/31/19 23:38 Vancomycin HCl (Vanco rx to dose) 1 ea DAILY PRN MISC PER RX PROTOCOL 07/30/19 09:00 08/26/19 18:44 Vancomycin HCl 1 gm/Dextrose 275 ml @ 183.708 mls/hr Q8HR@0000,0800,1600 IVPB 07/30/19 00:00 08/03/19 15:59 08/01/19 08:08 Olman Torres MD Aug 01, 2019 16:14
--- NOTE | 2019-08-01 16:34 | NUR ---
*-* INSURANCE *-* ALL CLINICALS AND REVIEWS HAVE BEEN FAXED TO: [employer] [employer] Ref#[id number] CM: [employer] #[phone] ext [phone]
--- NOTE | 2019-08-01 19:34 | NUR ---
HAND-OFF: Report given to DEBORAH Dean.
--- NOTE | 2019-08-01 19:42 | NUR ---
NURSE NOTES: Received report from Dilshad CABRERA. Patient is awake, alert and OX4. Breathing on N/C 2L/min. No signs of acute distress noted. IV intact, patent and asymptomatic. Bed in lowest position with call light in reach. Will continue to monitor the pt.
[2019-08-02] VITALS: BP 144/87
[2019-08-02] MEDS: D5NS 1,000 ML IV SCH ×3 (02:34→20:48)
[2019-08-02 04:00] VITALS: BP 143/79
--- NOTE | 2019-08-02 07:07 | NUR ---
HAND-OFF: Report given to DEBORAH Germain.
--- NOTE | 2019-08-02 07:10 | NUR ---
NURSE NOTES: Received patient in bed, awake, alert and oriented x4. Not in cardiac distress. Lung sound is clear, no wheezing or congestion but patient states that " I have a cough with whitish phlegm." Patient is afebrile. Denies any pain or discomfort. IV intact, no s/s of infiltration. Call light within reach. Will continue plan of care.
[2019-08-02 07:31] LABS: ALANINE AMINOTRANSFERASE 106 U/L (12-78); ALBUMIN 3.1 G/DL (3.4-5.0); ALBUMIN/GLOBULIN RATIO 0.7 (1.0-2.7); ALKALINE PHOSPHATASE 72 U/L (46-116); ANION GAP 9 mmol/L (5-15); ASPARTATE AMINO TRANSFERASE 55 U/L (15-37); BILIRUBIN,TOTAL 0.9 MG/DL (0.2-1.0); BLOOD UREA NITROGEN 6 mg/dL (7-18); CALCIUM 8.5 MG/DL (8.5-10.1); CARBON DIOXIDE 25 MMOL/L (21-32); CHLORIDE 107 MMOL/L (98-107); CREATININE 1.1 MG/DL (0.55-1.30); POTASSIUM 3.9 MMOL/L (3.5-5.1); SODIUM 141 MMOL/L (136-145)
[2019-08-02 07:34] LABS: HEMATOCRIT 46.6 % (42.0-52.0); HEMOGLOBIN 16.3 G/DL (14.2-18.0); MEAN CORPUSCULAR VOLUME 86 FL (80-99); PLATELET COUNT 240 K/UL (150-450); RED CELL DISTRIBUTION WIDTH 12.1 % (11.6-14.8); WHITE BLOOD COUNT 4.3 K/UL (4.8-10.8)
[2019-08-02 08:00] VITALS: BP 140/90
--- NOTE | 2019-08-02 08:21 | General Progress Note ---
Assessment/Plan Problem List: (1) Tobacco abuse ICD Codes: Z72.0 - Tobacco use SNOMED: 923901026 (2) Atypical pneumonia ICD Codes: J18.9 - Pneumonia, unspecified organism SNOMED: 688811421 Status: stable, unchanged Assessment/Plan: Assessment/Plan Problems: (1) Malnutrition ICD Codes: E46 - Unspecified protein-calorie malnutrition SNOMED: 37561854 (2) Drug abuse ICD Codes: F19.10 - Other psychoactive substance abuse, uncomplicated SNOMED: 77958957 Status: stable, unchanged Assessment/Plan Urine toxicity positive for phencyclidine, amphetamines and marijuana History of colonoscopy x3 years with unremarkable findings No plans for any GI procedures at this time fu pulmonary recommendations Symptomatic treatment Advance diet as tolerated Zofran as needed PPI IV p.o. hydration Follow labs Subjective Allergies: Coded Allergies: EGG (Verified Allergy, Intermediate, Hives, 07/30/19) SHELLFISH DERIVED (Verified Allergy, Intermediate, Shortness of Breath, ) SOB and hives Subjective no abd pain no nausea today Objective Last 24 Hour Vital Signs Date Time Temp Pulse Resp B/P (MAP) Pulse Ox O2 Delivery O2 Flow Rate FiO2 08/02/19 04:00 97.9 80 18 143/79 (100) 99 08/02/19 00:00 98.1 83 20 144/87 (106) 99 08/01/19 21:34 92 18 99 Nasal Cannula 2.0 28 08/01/19 21:34 99 Nasal Cannula 2.0 28 08/01/19 21:00 Nasal Cannula 2.0 08/01/19 20:00 97.1 73 20 126/71 (89) 99 08/01/19 16:00 97.7 77 18 145/95 (112) 93 08/01/19 14:30 71 18 99 Nasal Cannula 2.0 28 08/01/19 12:00 98.5 70 18 127/75 (92) 95 08/01/19 11:26 75 18 100 Nasal Cannula 3.0 32 71 18 97 08/01/19 09:04 97.9 79 18 137/84 (101) 98 08/01/19 09:00 Nasal Cannula 2.0 Intake and Output 08/01/19 08/02/19 19:00 07:00 Intake Total 1085.000 ml 1210 ml Output Total 1400 ml 500 ml Balance -315.000 ml 710 ml Intake Oral 350 ml IV Total 1085.000 ml 500 ml Other 360 ml Output Urine Total 1400 ml 500 ml # Voids 1 1 Laboratory Tests 08/02/19 06:20: White Blood Count 4.3L, Red Blood Count 5.40, Hemoglobin 16.3, Hematocrit 46.6, Mean Corpuscular Volume 86, Mean Corpuscular Hemoglobin 30.3, Mean Corpuscular Hemoglobin Concent 35.1, Red Cell Distribution Width 12.1, Platelet Count 240, Mean Platelet Volume 6.4L, Neutrophils (%) (Auto) , Lymphocytes (%) (Auto) , Monocytes (%) (Auto) , Eosinophils (%) (Auto) , Basophils (%) (Auto) , Neutrophils % (Manual) [Pending], Lymphocytes % (Manual) [Pending], Platelet Estimate [Pending], Platelet Morphology [Pending], Erythrocyte Sedimentation Rate [Pending], Sodium Level 141, Potassium Level 3.9, Chloride Level 107, Carbon Dioxide Level 25, Anion Gap 9, Blood Urea Nitrogen 6L, Creatinine 1.1, Estimat Glomerular Filtration Rate > 60, Glucose Level 98, Calcium Level 8.5, Phosphorus Level 3.0, Magnesium Level 1.8, Total Bilirubin 0.9, Aspartate Amino Transf (AST/SGOT) 55H, Alanine Aminotransferase (ALT/SGPT) 106H, Alkaline Phosphatase 72, C-Reactive Protein, Quantitative 0.2, Total Protein 7.4, Albumin 3.1L, Globulin 4.3, Albumin/Globulin Ratio 0.7L Height (Feet): 5 Height (Inches): 9.00 Weight (Pounds): 185 General Appearance: alert EENT: normal ENT inspection Neck: supple Cardiovascular: normal rate Respiratory/Chest: lungs clear Abdomen: soft, hypoactive bowel sounds Stevie Ahumada MD Aug 02, 2019 08:21
[2019-08-02] MEDS: BIKTARVY ORAL SCH (08:29)
[2019-08-02] MEDS: Heparin 5000 units/ml inj SUBQ SCH ×2 (08:35→20:47)
--- NOTE | 2019-08-02 08:36 | General Progress Note ---
Assessment/Plan Problem List: (1) HIV (human immunodeficiency virus infection) ICD Codes: B20 - Human immunodeficiency virus [HIV] disease SNOMED: 63142276 (2) Malnutrition ICD Codes: E46 - Unspecified protein-calorie malnutrition SNOMED: 48713787 (3) Sepsis ICD Codes: A41.9 - Sepsis, unspecified organism SNOMED: 96746152 (4) Atypical pneumonia ICD Codes: J18.9 - Pneumonia, unspecified organism SNOMED: 127160775 (5) Drug abuse ICD Codes: F19.10 - Other psychoactive substance abuse, uncomplicated SNOMED: 27664976 Status: unchanged Assessment/Plan: o2 pulm tx abx pt diet cbc bmp am dc plan if clear Subjective Constitutional: Reports: weakness Allergies: Coded Allergies: EGG (Verified Allergy, Intermediate, Hives, 07/30/19) SHELLFISH DERIVED (Verified Allergy, Intermediate, Shortness of Breath, ) SOB and hives All Systems: reviewed and negative except above Subjective o2 nc calm in bed Objective Last 24 Hour Vital Signs Date Time Temp Pulse Resp B/P (MAP) Pulse Ox O2 Delivery O2 Flow Rate FiO2 08/02/19 04:00 97.9 80 18 143/79 (100) 99 08/02/19 00:00 98.1 83 20 144/87 (106) 99 08/01/19 21:34 92 18 99 Nasal Cannula 2.0 28 08/01/19 21:34 99 Nasal Cannula 2.0 28 08/01/19 21:00 Nasal Cannula 2.0 08/01/19 20:00 97.1 73 20 126/71 (89) 99 08/01/19 16:00 97.7 77 18 145/95 (112) 93 08/01/19 14:30 71 18 99 Nasal Cannula 2.0 28 08/01/19 12:00 98.5 70 18 127/75 (92) 95 08/01/19 11:26 75 18 100 Nasal Cannula 3.0 32 71 18 97 08/01/19 09:04 97.9 79 18 137/84 (101) 98 08/01/19 09:00 Nasal Cannula 2.0 Intake and Output 08/01/19 08/02/19 19:00 07:00 Intake Total 1085.000 ml 1210 ml Output Total 1400 ml 500 ml Balance -315.000 ml 710 ml Intake Oral 350 ml IV Total 1085.000 ml 500 ml Other 360 ml Output Urine Total 1400 ml 500 ml # Voids 1 1 Laboratory Tests 08/02/19 06:20: White Blood Count 4.3L, Red Blood Count 5.40, Hemoglobin 16.3, Hematocrit 46.6, Mean Corpuscular Volume 86, Mean Corpuscular Hemoglobin 30.3, Mean Corpuscular Hemoglobin Concent 35.1, Red Cell Distribution Width 12.1, Platelet Count 240, Mean Platelet Volume 6.4L, Neutrophils (%) (Auto) , Lymphocytes (%) (Auto) , Monocytes (%) (Auto) , Eosinophils (%) (Auto) , Basophils (%) (Auto) , Neutrophils % (Manual) [Pending], Lymphocytes % (Manual) [Pending], Platelet Estimate [Pending], Platelet Morphology [Pending], Erythrocyte Sedimentation Rate [Pending], Sodium Level 141, Potassium Level 3.9, Chloride Level 107, Carbon Dioxide Level 25, Anion Gap 9, Blood Urea Nitrogen 6L, Creatinine 1.1, Estimat Glomerular Filtration Rate > 60, Glucose Level 98, Calcium Level 8.5, Phosphorus Level 3.0, Magnesium Level 1.8, Total Bilirubin 0.9, Aspartate Amino Transf (AST/SGOT) 55H, Alanine Aminotransferase (ALT/SGPT) 106H, Alkaline Phosphatase 72, C-Reactive Protein, Quantitative 0.2, Total Protein 7.4, Albumin 3.1L, Globulin 4.3, Albumin/Globulin Ratio 0.7L Height (Feet): 5 Height (Inches): 9.00 Weight (Pounds): 185 General Appearance: lethargic EENT: normal ENT inspection Neck: normal alignment Cardiovascular: normal peripheral pulses, normal rate, regular rhythm Respiratory/Chest: chest wall non-tender, lungs clear, normal breath sounds Abdomen: normal bowel sounds, non tender, soft Extremities: normal inspection Edema: no edema noted Arm (L), no edema noted Arm (R), no edema noted Leg (L), no edema noted Leg (R), no edema noted Pedal (L), no edema noted Pedal (R), no edema noted Generalized Neurologic: motor weakness Skin: normal pigmentation, warm/dry Ion Temple DO Aug 02, 2019 08:36
--- NOTE | 2019-08-02 09:30 | NUR ---
NURSE NOTES: patient refused to take heparin. RN re-educated on medication.Patient fully understood about med but refused x3. denies chest pain, stevie pain.
--- NOTE | 2019-08-02 11:33 | NUR ---
NURSE NOTES: Patient threw up small amount of food like emesis after he ate pizza. Patient states that " Every time I try to eat something, I 'm nauseous and I can't eat." No blood in emesis. No s/s of aspiration. Rn contacted Dr. Ahumada and informed him with new order to down grade his diet to clear liquid diet. PT made aware. Will continue to monitor.
[2019-08-02 12:00] VITALS: BP 137/77
--- NOTE | 2019-08-02 12:30 | NUR ---
NURSE NOTES: Patient tolerated well to clear liquid diet, no episodes of nausea or vomiting.
--- NOTE | 2019-08-02 14:49 | Pulmonology Progress Note ---
Assessment/Plan Problems: (1) Intractable nausea and vomiting (2) Atypical pneumonia (3) Tobacco abuse (4) HIV (human immunodeficiency virus infection) (5) Drug abuse Assessment/Plan on IV fluids f/u by GI check sputum ( nothing available yet continue abx, check electrolytes med/surg All medications and treatment were reviewed. Subjective ROS Limited/Unobtainable: No Constitutional: Reports: no symptoms HEENT: Repors: no symptoms Respiratory: Reports: no symptoms Allergies: Coded Allergies: EGG (Verified Allergy, Intermediate, Hives, 07/30/19) SHELLFISH DERIVED (Verified Allergy, Intermediate, Shortness of Breath, ) SOB and hives Objective Last 24 Hour Vital Signs Date Time Temp Pulse Resp B/P (MAP) Pulse Ox O2 Delivery O2 Flow Rate FiO2 08/02/19 12:00 98.1 80 19 137/77 (97) 97 08/02/19 09:00 Nasal Cannula 2.0 08/02/19 08:00 98.6 74 18 140/90 (107) 99 08/02/19 04:00 97.9 80 18 143/79 (100) 99 08/02/19 00:00 98.1 83 20 144/87 (106) 99 08/01/19 21:34 92 18 99 Nasal Cannula 2.0 28 08/01/19 21:34 99 Nasal Cannula 2.0 28 08/01/19 21:00 Nasal Cannula 2.0 08/01/19 20:00 97.1 73 20 126/71 (89) 99 08/01/19 16:00 97.7 77 18 145/95 (112) 93 Intake and Output 08/01/19 08/02/19 18:59 06:59 Intake Total 1085.000 ml 1210 ml Output Total 1400 ml 500 ml Balance -315.000 ml 710 ml Intake Oral 350 ml IV Total 1085.000 ml 500 ml Other 360 ml Output Urine Total 1400 ml 500 ml # Voids 1 1 General Appearance: WD/WN HEENT: normocephalic, atraumatic Respiratory/Chest: chest wall non-tender, lungs clear Cardiovascular: normal peripheral pulses, regular rhythm Abdomen: normal bowel sounds, soft, non tender Genitourinary: normal external genitalia Skin: no lesions, no ulcers 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 Microbiology Date/Time Source Procedure Growth Status 11/8/19 19:07 Sputum Induced Gram Stain - Final Resulted 08/01/19 19:07 Sputum Induced Sputum Culture Pending Resulted Laboratory Tests 08/02/19 06:20: White Blood Count 4.3L, Red Blood Count 5.40, Hemoglobin 16.3, Hematocrit 46.6, Mean Corpuscular Volume 86, Mean Corpuscular Hemoglobin 30.3, Mean Corpuscular Hemoglobin Concent 35.1, Red Cell Distribution Width 12.1, Platelet Count 240, Mean Platelet Volume 6.4L, Neutrophils (%) (Auto) , Lymphocytes (%) (Auto) , Monocytes (%) (Auto) , Eosinophils (%) (Auto) , Basophils (%) (Auto) , Differential Total Cells Counted 100, Neutrophils % (Manual) 28L, Lymphocytes % (Manual) 57H, Monocytes % (Manual) 12H, Eosinophils % (Manual) 2, Basophils % ( Manual) 1, Band Neutrophils 0, Platelet Estimate Adequate, Platelet Morphology Normal, Red Blood Cell Morphology Normal, Erythrocyte Sedimentation Rate 35H, Sodium Level 141, Potassium Level 3.9, Chloride Level 107, Carbon Dioxide Level 25, Anion Gap 9, Blood Urea Nitrogen 6L, Creatinine 1.1, Estimat Glomerular Filtration Rate > 60, Glucose Level 98, Calcium Level 8.5, Phosphorus Level 3.0 , Magnesium Level 1.8, Total Bilirubin 0.9, Aspartate Amino Transf (AST/SGOT) 55H, Alanine Aminotransferase (ALT/SGPT) 106H, Alkaline Phosphatase 72, C- Reactive Protein, Quantitative 0.2, Total Protein 7.4, Albumin 3.1L, Globulin 4.3, Albumin/Globulin Ratio 0.7L Current Medications Medications (Trade) Dose Ordered Sig/Anthony Route PRN Reason Start Time Stop Time Status Last Admin Dose Admin Acetaminophen (Tylenol) 650 mg Q4H PRN ORAL fever (temp>100.5F) 07/29/19 18:12 08/28/19 18:11 Albuterol/ Ipratropium (Albuterol/ Ipratropium) 3 ml Q4H PRN HHN Shortness of Breath 07/29/19 18:12 08/03/19 18:11 08/01/19 11:26 Dextrose (Dextrose 50%) 25 ml Q30M PRN IV Hypoglycemia 07/29/19 18:15 08/26/19 18:44 Dextrose (Dextrose 50%) 50 ml Q30M PRN IV Hypoglycemia 07/29/19 18:15 08/26/19 18:44 Dextrose/Sodium Chloride 1,000 ml @ 100 mls/hr Q10H IV 07/29/19 18:12 08/28/19 18:11 08/02/19 13:27 Diphenhydramine HCl (Benadryl) 25 mg Q6H PRN ORAL Itching/Pruritis 07/29/19 18:12 08/28/19 18:11 Guaifenesin/ Dextromethorphan (Robitussin DM Syrup) 15 ml Q4H PRN ORAL For Cough 07/29/19 18:12 08/28/19 18:11 07/31/19 23:28 Heparin Sodium (Porcine) (Heparin 5000 units/ml) 5,000 units EVERY 12 HOURS SUBQ 07/29/19 21:00 08/27/19 08:59 08/01/19 08:13 Morphine Sulfate (Morphine Sulfate) 2 mg Q4H PRN IVP Severe Pain (Pain Scale 7-10) 07/29/19 18:12 08/05/19 18:11 Ondansetron HCl (Zofran) 4 mg Q6H PRN IVP Nausea & Vomiting 07/29/19 18:13 08/28/19 18:12 08/02/19 11:03 Patient Own Medication (Patient's Own Med) 1 ea DAILY ORAL 07/30/19 16:30 08/29/19 16:29 08/02/19 08:29 Polyethylene Glycol (Miralax) 17 gm DAILYPRN PRN ORAL Constipation 07/29/19 18:13 08/28/19 18:12 Temazepam (Restoril) 15 mg HSPRN PRN ORAL Insomnia 08/02/19 21:00 08/07/19 20:59 Elle Salgado MD Aug 02, 2019 14:49
[2019-08-02] MEDS ORDERED: D5NS 1000ml IV ONE (14:57)
--- NOTE | 2019-08-02 15:50 | Infectious Diseases Prog Note ---
Assessment/Plan Assessment/Plan Assessment/Plan: 59yo gentleman with PMH tobacco and marijuana abuse, also found to have PCP, amphetamine positive presents with one week of fever, chills , cough, sob, diarrhea. ID consulted for recommendation Tmax 100.3, SP No leukocytosis Lactate 1.6 CAP? 07/27 flu swab negative 07/27 CTPA: No evidence of pulmonary embolus, aortic dissection or aneurysm. Patchy bilateral infiltrates. Consider pneumonia. Correlate clinically. Hiatal hernia. Degenerative changes of the spine. 07/28 TTE: EF 60%, mild diastolic dysfunction 07/31 CXR: Unchanged left basilar atelectasis and possible patchy infiltrate, since 07/27/2019. Central bronchial wall thickening, likely indicating bronchitis changes 08/01 sputum cx: P 07/27 UA negative r/o bacteremia 06/26 BCx: ngtd HIV dx 1980s reports daily compliance with Biktarvy(previously used Genvoya, Truvada, etc) CD4 666 MRSA screen positive amphetamine, marijuana, PCP positive tobacco use Plan: monitor off antibiotics 07/31 SP cefepime, vancomycin, azithromycin #5 SP Ceftriaxone 07/27 f/u bcx trend temp, CBC Thank you for this consult. [facility] will continue to follow the patient with you. Subjective Allergies: Coded Allergies: EGG (Verified Allergy, Intermediate, Hives, 07/30/19) SHELLFISH DERIVED (Verified Allergy, Intermediate, Shortness of Breath, ) SOB and hives Subjective Afebrile. on 2L. friend in room pt reports nausea and vomiting after eating papa deshpande pizza. Pt eats then coughs then vomits. but pt tolerated cupcakes. Objective Vital Signs Last 24 Hour Vital Signs Date Time Temp Pulse Resp B/P (MAP) Pulse Ox O2 Delivery O2 Flow Rate FiO2 08/02/19 12:00 98.1 80 19 137/77 (97) 97 08/02/19 09:00 Nasal Cannula 2.0 08/02/19 08:00 98.6 74 18 140/90 (107) 99 08/02/19 04:00 97.9 80 18 143/79 (100) 99 08/02/19 00:00 98.1 83 20 144/87 (106) 99 08/01/19 21:34 92 18 99 Nasal Cannula 2.0 28 08/01/19 21:34 99 Nasal Cannula 2.0 28 08/01/19 21:00 Nasal Cannula 2.0 08/01/19 20:00 97.1 73 20 126/71 (89) 99 08/01/19 16:00 97.7 77 18 145/95 (112) 93 Height (Feet): 5 Height (Inches): 9.00 Weight (Pounds): 185 Objective VS: afebrile. RA. Gen: NAD HEENT: anicteric sclera CV: RRR Resp: coarse crackles diffusely Abd: soft. no TTP. slightly distended. Ext: no LE edema Microbiology Date/Time Source Procedure Growth Status 08/01/19 19:07 Sputum Induced Gram Stain - Final Resulted 08/01/19 19:07 Sputum Induced Sputum Culture Pending Resulted Laboratory Tests Test 08/02/19 06:20 White Blood Count 4.3 K/UL (4.8-10.8) L Red Blood Count 5.40 M/UL (4.70-6.10) Hemoglobin 16.3 G/DL (14.2-18.0) Hematocrit 46.6 % (42.0-52.0) Mean Corpuscular Volume 86 FL (80-99) Mean Corpuscular Hemoglobin 30.3 PG (27.0-31.0) Mean Corpuscular Hemoglobin Concent 35.1 G/DL (32.0-36.0) Red Cell Distribution Width 12.1 % (11.6-14.8) Platelet Count 240 K/UL (150-450) Mean Platelet Volume 6.4 FL (6.5-10.1) L Neutrophils (%) (Auto) % (45.0-75.0) Lymphocytes (%) (Auto) % (20.0-45.0) Monocytes (%) (Auto) % (1.0-10.0) Eosinophils (%) (Auto) % (0.0-3.0) Basophils (%) (Auto) % (0.0-2.0) Differential Total Cells Counted 100 Neutrophils % (Manual) 28 % (45-75) L Lymphocytes % (Manual) 57 % (20-45) H Monocytes % (Manual) 12 % (1-10) H Eosinophils % (Manual) 2 % (0-3) Basophils % (Manual) 1 % (0-2) Band Neutrophils 0 % (0-8) Platelet Estimate Adequate Platelet Morphology Normal Red Blood Cell Morphology Normal Erythrocyte Sedimentation Rate 35 MM/HR (0-20) H Sodium Level 141 MMOL/L (136-145) Potassium Level 3.9 MMOL/L (3.5-5.1) Chloride Level 107 MMOL/L (98-107) Carbon Dioxide Level 25 MMOL/L (21-32) Anion Gap 9 mmol/L (5-15) Blood Urea Nitrogen 6 mg/dL (7-18) L Creatinine 1.1 MG/DL (0.55-1.30) Estimat Glomerular Filtration Rate > 60 mL/min (>60) Glucose Level 98 MG/DL (74-106) Calcium Level 8.5 MG/DL (8.5-10.1) Phosphorus Level 3.0 MG/DL (2.5-4.9) Magnesium Level 1.8 MG/DL (1.8-2.4) Total Bilirubin 0.9 MG/DL (0.2-1.0) Aspartate Amino Transf (AST/SGOT) 55 U/L (15-37) H Alanine Aminotransferase (ALT/SGPT) 106 U/L (12-78) H Alkaline Phosphatase 72 U/L (46-116) C-Reactive Protein, Quantitative 0.2 mg/dL (0.00-0.90) Total Protein 7.4 G/DL (6.4-8.2) Albumin 3.1 G/DL (3.4-5.0) L Globulin 4.3 g/dL Albumin/Globulin Ratio 0.7 (1.0-2.7) L Current Medications Medications (Trade) Dose Ordered Sig/Anthony Route PRN Reason Start Time Stop Time Status Last Admin Dose Admin Acetaminophen (Tylenol) 650 mg Q4H PRN ORAL fever (temp>100.5F) 07/29/19 18:12 08/28/19 18:11 Albuterol/ Ipratropium (Albuterol/ Ipratropium) 3 ml Q4H PRN HHN Shortness of Breath 07/29/19 18:12 08/03/19 18:11 08/01/19 11:26 Dextrose (Dextrose 50%) 25 ml Q30M PRN IV Hypoglycemia 07/29/19 18:15 08/26/19 18:44 Dextrose (Dextrose 50%) 50 ml Q30M PRN IV Hypoglycemia 07/29/19 18:15 08/26/19 18:44 Dextrose/Sodium Chloride 1,000 ml @ 100 mls/hr Q10H IV 07/29/19 18:12 08/28/19 18:11 08/02/19 13:27 Diphenhydramine HCl (Benadryl) 25 mg Q6H PRN ORAL Itching/Pruritis 07/29/19 18:12 08/28/19 18:11 Guaifenesin/ Dextromethorphan (Robitussin DM Syrup) 15 ml Q4H PRN ORAL For Cough 07/29/19 18:12 08/28/19 18:11 07/31/19 23:28 Heparin Sodium (Porcine) (Heparin 5000 units/ml) 5,000 units EVERY 12 HOURS SUBQ 07/29/19 21:00 08/27/19 08:59 08/01/19 08:13 Morphine Sulfate (Morphine Sulfate) 2 mg Q4H PRN IVP Severe Pain (Pain Scale 7-10) 07/29/19 18:12 08/05/19 18:11 Ondansetron HCl (Zofran) 4 mg Q6H PRN IVP Nausea & Vomiting 07/29/19 18:13 08/28/19 18:12 08/02/19 11:03 Patient Own Medication (Patient's Own Med) 1 ea DAILY ORAL 07/30/19 16:30 08/29/19 16:29 08/02/19 08:29 Polyethylene Glycol (Miralax) 17 gm DAILYPRN PRN ORAL Constipation 07/29/19 18:13 08/28/19 18:12 Temazepam (Restoril) 15 mg HSPRN PRN ORAL Insomnia 08/02/19 21:00 08/07/19 20:59 Olman Torres MD Aug 02, 2019 15:50
[2019-08-02 16:00] VITALS: BP 131/72
--- NOTE | 2019-08-02 17:20 | NUR ---
NURSE NOTES: Patient tolerated well to clear liquid diet, no episodes of nausea or vomiting.
--- NOTE | 2019-08-02 19:05 | NUR ---
CASE MANAGEMENT: REVIEW 08/02/2019 DX: PNA T 98.4 HR 87 RR 18 B/P 131/72 SATS 95% ON 2L/NC WBC 4.3 BUN 6 AST 55 ALT 106 IS: IVF @ 100 mL/HR MED/SURG DCP: PATIENT TO BE DISCHARGED TO HOME ONCE MEDICALLY CLEARED. PLAN OF CARE: VENOUS DUPLEX (-)
--- NOTE | 2019-08-02 19:20 | NUR ---
NURSE NOTES: Received report from DEBORAH Germain. Pt AAO x 4, on room air. Family member is at bedside. IV sited intact and patent, running NS 100cc/hr. Skin is intact. No c/o nausea or vomiting. No acute distress noted at this time. Bed locked, lowest position, side rails up x 2, call light within reach. Will continue to monitor.
--- NOTE | 2019-08-02 19:27 | NUR ---
HAND-OFF: Report given to Corrie.
[2019-08-02 20:00] VITALS: BP 149/82
[2019-08-03] VITALS: BP 152/75
[2019-08-03 04:00] VITALS: BP 149/99
[2019-08-03] MEDS: Albuterol/Ipratropium 3ml neb HHN PRN (04:05)
[2019-08-03] MEDS: Guaifenesin/DM 10ml syrup ORAL PRN ×4 (04:06→21:17)
--- NOTE | 2019-08-03 04:08 | NUR ---
NURSE NOTES: Pt c/o cough. RN called RT for breathing treatment. Addendum: 08/03/19 at 0436 by BRITTNI CORRIGAN RN RN NURSE NOTES: Breathing treatment done. Pt feels better and comfortable.
--- NOTE | 2019-08-03 06:29 | General Progress Note ---
Assessment/Plan Problem List: (1) Tobacco abuse ICD Codes: Z72.0 - Tobacco use SNOMED: 506427556 (2) Atypical pneumonia ICD Codes: J18.9 - Pneumonia, unspecified organism SNOMED: 152043221 Status: unchanged Assessment/Plan: Assessment/Plan Problems: (1) Malnutrition ICD Codes: E46 - Unspecified protein-calorie malnutrition SNOMED: 40468667 (2) Drug abuse ICD Codes: F19.10 - Other psychoactive substance abuse, uncomplicated SNOMED: 00005318 Status: stable, unchanged Assessment/Plan Urine toxicity positive for phencyclidine, amphetamines and marijuana History of colonoscopy x3 years with unremarkable findings No plans for any GI procedures at this time fu pulmonary recommendations Symptomatic treatment Advance diet Zofran as needed PPI IV p.o. hydration Follow labs hepatitis panel Subjective ROS Limited/Unobtainable: Yes Allergies: Coded Allergies: EGG (Verified Allergy, Intermediate, Hives, 07/30/19) SHELLFISH DERIVED (Verified Allergy, Intermediate, Shortness of Breath, ) SOB and hives Subjective last vomiting yesterday Objective Last 24 Hour Vital Signs Date Time Temp Pulse Resp B/P (MAP) Pulse Ox O2 Delivery O2 Flow Rate FiO2 08/03/19 04:05 94 18 99 Nasal Cannula 3.0 32 89 18 95 08/03/19 04:00 96.4 94 22 149/99 (116) 93 08/03/19 00:00 99.7 83 18 152/75 (100) 96 08/02/19 21:00 Nasal Cannula 2.0 08/02/19 20:00 98.4 66 18 149/82 (104) 96 08/02/19 19:45 96 Nasal Cannula 2.0 28 08/02/19 19:44 79 18 96 Nasal Cannula 2.0 28 08/02/19 16:00 98.4 87 18 131/72 (91) 95 08/02/19 12:00 98.1 80 19 137/77 (97) 97 08/02/19 09:00 Nasal Cannula 2.0 08/02/19 08:00 98.6 74 18 140/90 (107) 99 Intake and Output 08/02/19 08/03/19 19:00 07:00 Intake Total 1100 ml 1133.3 ml Output Total 700 ml Balance 1100 ml 433.3 ml IV Total 1100 ml 1133.3 ml Output Urine Total 700 ml Height (Feet): 5 Height (Inches): 9.00 Weight (Pounds): 185 General Appearance: no apparent distress EENT: normal ENT inspection Neck: supple Cardiovascular: normal rate Respiratory/Chest: decreased breath sounds Abdomen: normal bowel sounds, non tender, soft Extremities: non-tender Stevie Ahumada MD Aug 03, 2019 06:29
[2019-08-03] MEDS: D5NS 1,000 ML IV SCH ×2 (06:52→16:36)
--- NOTE | 2019-08-03 07:23 | NUR ---
HAND-OFF: Report given to DEBORAH Germain.
--- NOTE | 2019-08-03 07:25 | NUR ---
NURSE NOTES: Received patient in bed,asleep @ this time. Breathing is even and unlabored. Family @ bedside. IVF running. Will continue to monitor.
[2019-08-03 07:50] LABS: BASOPHILS % (AUTO) 1.7 % (0.0-2.0); EOSINOPHILS % (AUTO) 1.4 % (0.0-3.0); HEMATOCRIT 45.1 % (42.0-52.0); HEMOGLOBIN 15.7 G/DL (14.2-18.0); LYMPHOCYTES % (AUTO) 50.8 % (20.0-45.0); MEAN CORPUSCULAR VOLUME 87 FL (80-99); MONOCYTES % (AUTO) 12.9 % (1.0-10.0); NEUTROPHILS % (AUTO) 33.1 % (45.0-75.0); PLATELET COUNT 238 K/UL (150-450); RED BLOOD COUNT 5.17 M/UL (4.70-6.10); RED CELL DISTRIBUTION WIDTH 11.5 % (11.6-14.8)
[2019-08-03 08:00] VITALS: BP 145/79
[2019-08-03 08:28] LABS: ALANINE AMINOTRANSFERASE 119 U/L (12-78); ALBUMIN 3.1 G/DL (3.4-5.0); ALBUMIN/GLOBULIN RATIO 0.7 (1.0-2.7); ALKALINE PHOSPHATASE 77 U/L (46-116); ANION GAP 9 mmol/L (5-15); ASPARTATE AMINO TRANSFERASE 63 U/L (15-37); BLOOD UREA NITROGEN 5 mg/dL (7-18); CALCIUM 8.8 MG/DL (8.5-10.1); CARBON DIOXIDE 25 MMOL/L (21-32); CHLORIDE 108 MMOL/L (98-107); POTASSIUM 3.7 MMOL/L (3.5-5.1); SODIUM 142 MMOL/L (136-145)
[2019-08-03] MEDS: BIKTARVY ORAL SCH (08:34)
[2019-08-03] MEDS: Heparin 5000 units/ml inj SUBQ SCH ×2 (08:42→20:30)
--- NOTE | 2019-08-03 08:42 | General Progress Note ---
Assessment/Plan Problem List: (1) HIV (human immunodeficiency virus infection) ICD Codes: B20 - Human immunodeficiency virus [HIV] disease SNOMED: 02848606 (2) Malnutrition ICD Codes: E46 - Unspecified protein-calorie malnutrition SNOMED: 42136967 (3) Sepsis ICD Codes: A41.9 - Sepsis, unspecified organism SNOMED: 72450656 (4) Atypical pneumonia ICD Codes: J18.9 - Pneumonia, unspecified organism SNOMED: 519103099 (5) Drug abuse ICD Codes: F19.10 - Other psychoactive substance abuse, uncomplicated SNOMED: 74993262 Status: unchanged Assessment/Plan: o2 pulm tx abx pt diet cbc bmp am gi heme eval Subjective Constitutional: Reports: weakness Allergies: Coded Allergies: EGG (Verified Allergy, Intermediate, Hives, 07/30/19) SHELLFISH DERIVED (Verified Allergy, Intermediate, Shortness of Breath, ) SOB and hives All Systems: reviewed and negative except above Subjective o2 nc sl vomit Objective Last 24 Hour Vital Signs Date Time Temp Pulse Resp B/P (MAP) Pulse Ox O2 Delivery O2 Flow Rate FiO2 08/03/19 04:05 94 18 99 Nasal Cannula 3.0 32 89 18 95 08/03/19 04:00 96.4 94 22 149/99 (116) 93 08/03/19 00:00 99.7 83 18 152/75 (100) 96 08/02/19 21:00 Nasal Cannula 2.0 08/02/19 20:00 98.4 66 18 149/82 (104) 96 08/02/19 19:45 96 Nasal Cannula 2.0 28 08/02/19 19:44 79 18 96 Nasal Cannula 2.0 28 08/02/19 16:00 98.4 87 18 131/72 (91) 95 08/02/19 12:00 98.1 80 19 137/77 (97) 97 08/02/19 09:00 Nasal Cannula 2.0 Intake and Output 08/02/19 08/03/19 19:00 07:00 Intake Total 1100 ml 1133.3 ml Output Total 700 ml Balance 1100 ml 433.3 ml IV Total 1100 ml 1133.3 ml Output Urine Total 700 ml Laboratory Tests 08/03/19 06:55: White Blood Count 5.0, Red Blood Count 5.17, Hemoglobin 15.7, Hematocrit 45.1, Mean Corpuscular Volume 87, Mean Corpuscular Hemoglobin 30.4, Mean Corpuscular Hemoglobin Concent 34.9, Red Cell Distribution Width 11.5L, Platelet Count 238, Mean Platelet Volume 6.1L, Neutrophils (%) (Auto) 33.1L, Lymphocytes (%) (Auto) 50.8H, Monocytes (%) (Auto) 12.9H, Eosinophils (%) (Auto) 1.4, Basophils (%) ( Auto) 1.7, Sodium Level 142, Potassium Level 3.7, Chloride Level 108H, Carbon Dioxide Level 25, Anion Gap 9, Blood Urea Nitrogen 5L, Creatinine 1.0, Estimat Glomerular Filtration Rate > 60, Glucose Level 91, Calcium Level 8.8, Total Bilirubin 1.0, Aspartate Amino Transf (AST/SGOT) 63H, Alanine Aminotransferase ( ALT/SGPT) 119H, Alkaline Phosphatase 77, Total Protein 7.4, Albumin 3.1L, Globulin 4.3, Albumin/Globulin Ratio 0.7L, Hepatitis A IgM Antibody [Pending], Hepatitis B Surface Antigen [Pending], Hepatitis B Core IgM Antibody [Pending], Hepatitis C Antibody [Pending] Height (Feet): 5 Height (Inches): 9.00 Weight (Pounds): 185 General Appearance: lethargic EENT: normal ENT inspection Neck: normal alignment Cardiovascular: normal peripheral pulses, normal rate, regular rhythm Respiratory/Chest: chest wall non-tender, lungs clear, normal breath sounds Abdomen: normal bowel sounds, non tender, soft Extremities: normal inspection Edema: no edema noted Arm (L), no edema noted Arm (R), no edema noted Leg (L), no edema noted Leg (R), no edema noted Pedal (L), no edema noted Pedal (R), no edema noted Generalized Neurologic: motor weakness Skin: normal pigmentation, warm/dry Ion Temple DO Aug 03, 2019 08:41
--- NOTE | 2019-08-03 09:00 | NUR ---
NURSE NOTES: patient refused to take heparin. RN re-educated on medication.Patient fully understood about med but refused x3. denies chest pain, stevie pain. Addendum: 08/03/19 at 1101 by OH MORTENSEN RN calf pain*
--- NOTE | 2019-08-03 10:43 | NUR ---
RD ASSESSMENT & RECOMMENDATIONS SEE CARE ACTIVITY FOR COMPLETE ASSESSMENT DAILY ESTIMATED NEEDS: Needs based on pulmonary, HIV 75.6kg abw 25-30 kcals/kg 4593-6794 total kcals 1-1.5 g protein/kg 76-113 g total protein 25-30 mL/kg 4996-5940 total fluid mLs NUTRITION DIAGNOSIS: Altered nutrition related lab values r/t clinical status, HIV,and h/o drug use as evidenced by elev LFT's, CD4 666, (+) tox for meth. CURRENT DIET: Regular PO DIET RECOMMENDATIONS: LOW NA / BLAND diet w/ continued nausea ADDITIONAL RECOMMENDATIONS: 1) Obtain a standing weight as able 2) Rec [place] diet w/ nausea 3) And Ensure Clear w/ meals (240 kcal/ 8g pro each) 4) Monitor tolerance to diet 5) check lytes w/ continued emesis
[2019-08-03 12:00] VITALS: BP 118/80
--- NOTE | 2019-08-03 12:00 | NUR ---
NURSE NOTES: Patient tolerated well with regular food. Denies nausea or vomiting. Will continue to monitor.
[2019-08-03 16:00] VITALS: BP 128/86
--- NOTE | 2019-08-03 16:15 | NUR ---
PT Note PT soraida completed, treatment initiated. Patient c/o fatigue and SOB during gait training, even with O2. He has muscle weakness and decreased standing balance. Patient needs PT to increase his muscle strength and balance and to train/instruct on proper breathing techniques and energy conservation techniques to improve his functional mobility and gait to enable him to return home. Addendum: 08/03/19 at 1616 by WHIT EVERETT PT Amended: Links added.
--- NOTE | 2019-08-03 16:29 | Pulmonology Progress Note ---
Assessment/Plan Problems: (1) Intractable nausea and vomiting (2) Atypical pneumonia (3) Tobacco abuse (4) HIV (human immunodeficiency virus infection) (5) Drug abuse Assessment/Plan on IV fluids f/u by GI check sputum ( nothing available yet continue abx, check electrolytes med/surg All medications and treatment were reviewed. Subjective ROS Limited/Unobtainable: No Constitutional: Reports: no symptoms HEENT: Repors: no symptoms Allergies: Coded Allergies: EGG (Verified Allergy, Intermediate, Hives, 07/30/19) SHELLFISH DERIVED (Verified Allergy, Intermediate, Shortness of Breath, ) SOB and hives Objective Last 24 Hour Vital Signs Date Time Temp Pulse Resp B/P (MAP) Pulse Ox O2 Delivery O2 Flow Rate FiO2 08/03/19 16:00 98.7 73 19 128/86 (100) 97 08/03/19 12:00 98.1 66 19 118/80 (93) 96 08/03/19 09:00 Nasal Cannula 2.0 08/03/19 08:00 97.5 72 18 145/79 (101) 99 08/03/19 04:05 94 18 99 Nasal Cannula 3.0 32 89 18 95 08/03/19 04:00 96.4 94 22 149/99 (116) 93 08/03/19 00:00 99.7 83 18 152/75 (100) 96 08/02/19 21:00 Nasal Cannula 2.0 08/02/19 20:00 98.4 66 18 149/82 (104) 96 08/02/19 19:45 96 Nasal Cannula 2.0 28 08/02/19 19:44 79 18 96 Nasal Cannula 2.0 28 Intake and Output 08/02/19 08/03/19 18:59 06:59 Intake Total 1100 ml 1133.3 ml Output Total 700 ml Balance 1100 ml 433.3 ml IV Total 1100 ml 1133.3 ml Output Urine Total 700 ml General Appearance: WD/WN HEENT: normocephalic, atraumatic Respiratory/Chest: chest wall non-tender, normal breath sounds Cardiovascular: normal peripheral pulses, normal rate Abdomen: normal bowel sounds, soft, non tender, no organomegaly Genitourinary: normal external genitalia Neurologic/Psychiatric: health education coordinator II-XII grossly normal Lymphatic: no neck adenopathy Musculoskeletal: normal muscle bulk Microbiology Date/Time Source Procedure Growth Status 08/01/19 19:07 Sputum Induced Gram Stain - Final Complete 08/01/19 19:07 Sputum Culture - Final Usual Upper Respiratory Merry Complete Laboratory Tests 08/03/19 06:55: White Blood Count 5.0, Red Blood Count 5.17, Hemoglobin 15.7, Hematocrit 45.1, Mean Corpuscular Volume 87, Mean Corpuscular Hemoglobin 30.4, Mean Corpuscular Hemoglobin Concent 34.9, Red Cell Distribution Width 11.5L, Platelet Count 238, Mean Platelet Volume 6.1L, Neutrophils (%) (Auto) 33.1L, Lymphocytes (%) (Auto) 50.8H, Monocytes (%) (Auto) 12.9H, Eosinophils (%) (Auto) 1.4, Basophils (%) ( Auto) 1.7, Sodium Level 142, Potassium Level 3.7, Chloride Level 108H, Carbon Dioxide Level 25, Anion Gap 9, Blood Urea Nitrogen 5L, Creatinine 1.0, Estimat Glomerular Filtration Rate > 60, Glucose Level 91, Calcium Level 8.8, Total Bilirubin 1.0, Aspartate Amino Transf (AST/SGOT) 63H, Alanine Aminotransferase ( ALT/SGPT) 119H, Alkaline Phosphatase 77, Total Protein 7.4, Albumin 3.1L, Globulin 4.3, Albumin/Globulin Ratio 0.7L, Hepatitis A IgM Antibody [Pending], Hepatitis B Surface Antigen [Pending], Hepatitis B Core IgM Antibody [Pending], Hepatitis C Antibody [Pending] Current Medications Medications (Trade) Dose Ordered Sig/Anthony Route PRN Reason Start Time Stop Time Status Last Admin Dose Admin Acetaminophen (Tylenol) 650 mg Q4H PRN ORAL fever (temp>100.5F) 07/29/19 18:12 08/28/19 18:11 Albuterol/ Ipratropium (Albuterol/ Ipratropium) 3 ml Q4H PRN HHN Shortness of Breath 07/29/19 18:12 08/03/19 18:11 08/03/19 04:05 Dextrose (Dextrose 50%) 25 ml Q30M PRN IV Hypoglycemia 07/29/19 18:15 08/26/19 18:44 Dextrose (Dextrose 50%) 50 ml Q30M PRN IV Hypoglycemia 07/29/19 18:15 08/26/19 18:44 Dextrose/Sodium Chloride 1,000 ml @ 100 mls/hr Q10H IV 07/29/19 18:12 08/28/19 18:11 08/03/19 06:52 Diphenhydramine HCl (Benadryl) 25 mg Q6H PRN ORAL Itching/Pruritis 07/29/19 18:12 08/28/19 18:11 Guaifenesin/ Dextromethorphan (Robitussin DM Syrup) 15 ml Q4H PRN ORAL For Cough 07/29/19 18:12 08/28/19 18:11 08/03/19 13:16 Heparin Sodium (Porcine) (Heparin 5000 units/ml) 5,000 units EVERY 12 HOURS SUBQ 07/29/19 21:00 08/27/19 08:59 08/02/19 20:47 Morphine Sulfate (Morphine Sulfate) 2 mg Q4H PRN IVP Severe Pain (Pain Scale 7-10) 07/29/19 18:12 08/05/19 18:11 Ondansetron HCl (Zofran) 4 mg Q6H PRN IVP Nausea & Vomiting 07/29/19 18:13 08/28/19 18:12 08/03/19 13:12 Patient Own Medication (Patient's Own Med) 1 ea DAILY ORAL 07/30/19 16:30 08/29/19 16:29 08/03/19 08:34 Polyethylene Glycol (Miralax) 17 gm DAILYPRN PRN ORAL Constipation 07/29/19 18:13 08/28/19 18:12 Temazepam (Restoril) 15 mg HSPRN PRN ORAL Insomnia 08/02/19 21:00 08/07/19 20:59 08/03/19 04:20 Elle Salgado MD Aug 03, 2019 16:29
--- NOTE | 2019-08-03 16:41 | NUR ---
NURSE NOTES: Patient did not have bowel movement since 07/31/19 but flatus presents. Bowel sound presents. RN offered miralax x3 but patient sya " I don't think I need it. I will call you when I need it." RN explained the risks and benefits.
--- NOTE | 2019-08-03 19:21 | NUR ---
HAND-OFF: Report given to Sheila.
--- NOTE | 2019-08-03 19:25 | NUR ---
NURSE NOTES: Received report from Kalie De Jesus RN. Patient is awake and alert x4. Patient C/O of cough coming on and requested RT. RT notified by AM nurse. No C/O pain at this time. IV intact and running fluids. Bed locked and in lowest position. Call light in reach. Will continue to monitor the patient.
[2019-08-03 20:00] VITALS: BP 157/89
--- NOTE | 2019-08-03 22:28 | NUR ---
NURSE NOTES: Patient used the restroom and reports seeing blood in his urine. Unable to witness or observe the urine. Dr. Salgado notified. Awaiting orders.
[2019-08-04] VITALS: BP 143/73
[2019-08-04 04:00] VITALS: BP 131/68
[2019-08-04] MEDS: D5NS 1,000 ML IV SCH ×2 (04:08→14:12)
--- NOTE | 2019-08-04 07:00 | NUR ---
Spoke with Naomi regarding patient reporting blood in his urine. Orders received.
--- NOTE | 2019-08-04 07:47 | NUR ---
HAND-OFF: Report given to DEBORAH Lopez.
--- NOTE | 2019-08-04 07:47 | NUR ---
NURSE NOTES: Patient received by the bedside, using urinal. Denies pain or SOB at this time. Breathing unlabored on room air. Alert and oriented. Call light within reach, friend by the bedside. Will continue to monitor.
[2019-08-04 07:52] LABS: BASOPHILS % (AUTO) 1.5 % (0.0-2.0); EOSINOPHILS % (AUTO) 1.7 % (0.0-3.0); HEMOGLOBIN 14.6 G/DL (14.2-18.0); LYMPHOCYTES % (AUTO) 53.8 % (20.0-45.0); MEAN CORPUSCULAR VOLUME 88 FL (80-99); MONOCYTES % (AUTO) 9.7 % (1.0-10.0); NEUTROPHILS % (AUTO) 33.3 % (45.0-75.0); PLATELET COUNT 254 K/UL (150-450); RED BLOOD COUNT 4.79 M/UL (4.70-6.10); RED CELL DISTRIBUTION WIDTH 11.6 % (11.6-14.8); WHITE BLOOD COUNT 5.7 K/UL (4.8-10.8)
[2019-08-04 08:00] VITALS: BP 140/80
[2019-08-04 08:16] LABS: ALANINE AMINOTRANSFERASE 130 U/L (12-78); ALBUMIN 2.9 G/DL (3.4-5.0); ALBUMIN/GLOBULIN RATIO 0.7 (1.0-2.7); ALKALINE PHOSPHATASE 73 U/L (46-116); ANION GAP 7 mmol/L (5-15); ASPARTATE AMINO TRANSFERASE 76 U/L (15-37); BILIRUBIN,TOTAL 0.6 MG/DL (0.2-1.0); BLOOD UREA NITROGEN 9 mg/dL (7-18); CALCIUM 8.1 MG/DL (8.5-10.1); CARBON DIOXIDE 26 MMOL/L (21-32); CHLORIDE 109 MMOL/L (98-107); POTASSIUM 3.6 MMOL/L (3.5-5.1); SODIUM 142 MMOL/L (136-145)
[2019-08-04] MEDS: BIKTARVY ORAL SCH (09:40)
[2019-08-04] MEDS: Heparin 5000 units/ml inj SUBQ SCH ×2 (09:43→20:47)
--- NOTE | 2019-08-04 09:58 | General Progress Note ---
Assessment/Plan Problem List: (1) HIV (human immunodeficiency virus infection) ICD Codes: B20 - Human immunodeficiency virus [HIV] disease SNOMED: 84430481 (2) Malnutrition ICD Codes: E46 - Unspecified protein-calorie malnutrition SNOMED: 38484463 (3) Sepsis ICD Codes: A41.9 - Sepsis, unspecified organism SNOMED: 95090427 (4) Atypical pneumonia ICD Codes: J18.9 - Pneumonia, unspecified organism SNOMED: 561145309 (5) Drug abuse ICD Codes: F19.10 - Other psychoactive substance abuse, uncomplicated SNOMED: 62026626 Status: unchanged Assessment/Plan: o2 pulm tx abx pt diet cbc bmp am gi heme eval Subjective Constitutional: Reports: weakness Allergies: Coded Allergies: EGG (Verified Allergy, Intermediate, Hives, 07/30/19) SHELLFISH DERIVED (Verified Allergy, Intermediate, Shortness of Breath, ) SOB and hives All Systems: reviewed and negative except above Subjective o2 nc sl vomit Objective Last 24 Hour Vital Signs Date Time Temp Pulse Resp B/P (MAP) Pulse Ox O2 Delivery O2 Flow Rate FiO2 08/04/19 04:00 98.1 82 20 131/68 (89) 97 08/04/19 00:00 98.2 82 18 143/73 (96) 95 08/03/19 20:01 Nasal Cannula 2.0 08/03/19 20:00 97.0 91 22 157/89 (111) 96 08/03/19 19:29 98 Nasal Cannula 2.0 28 08/03/19 19:29 77 18 98 Nasal Cannula 2.0 28 08/03/19 16:00 98.7 73 19 128/86 (100) 97 08/03/19 12:00 98.1 66 19 118/80 (93) 96 Intake and Output 08/03/19 08/04/19 19:00 07:00 Intake Total 1000 ml 1000 ml Balance 1000 ml 1000 ml IV Total 1000 ml 1000 ml # Voids 3 Laboratory Tests 08/04/19 06:13: White Blood Count 5.7, Red Blood Count 4.79, Hemoglobin 14.6, Hematocrit 42.0, Mean Corpuscular Volume 88, Mean Corpuscular Hemoglobin 30.6, Mean Corpuscular Hemoglobin Concent 34.9, Red Cell Distribution Width 11.6, Platelet Count 254, Mean Platelet Volume 5.9L, Neutrophils (%) (Auto) 33.3L, Lymphocytes (%) (Auto) 53.8H, Monocytes (%) (Auto) 9.7, Eosinophils (%) (Auto) 1.7, Basophils (%) (Auto ) 1.5, Sodium Level 142, Potassium Level 3.6, Chloride Level 109H, Carbon Dioxide Level 26, Anion Gap 7, Blood Urea Nitrogen 9, Creatinine 1.0, Estimat Glomerular Filtration Rate > 60, Glucose Level 101, Calcium Level 8.1L, Total Bilirubin 0.6, Aspartate Amino Transf (AST/SGOT) 76H, Alanine Aminotransferase ( ALT/SGPT) 130H, Alkaline Phosphatase 73, Total Protein 6.9, Albumin 2.9L, Globulin 4.0, Albumin/Globulin Ratio 0.7L, Hepatitis A IgM Antibody [Pending], Hepatitis B Surface Antigen [Pending], Hepatitis B Core IgM Antibody [Pending], Hepatitis C Antibody [Pending] Height (Feet): 5 Height (Inches): 9.00 Weight (Pounds): 185 General Appearance: lethargic EENT: normal ENT inspection Neck: normal alignment Cardiovascular: normal peripheral pulses, normal rate, regular rhythm Respiratory/Chest: chest wall non-tender, lungs clear, normal breath sounds Abdomen: normal bowel sounds, non tender, soft Extremities: normal inspection Edema: no edema noted Arm (L), no edema noted Arm (R), no edema noted Leg (L), no edema noted Leg (R), no edema noted Pedal (L), no edema noted Pedal (R), no edema noted Generalized Neurologic: responsive, motor weakness Skin: normal pigmentation, warm/dry Ion Temple DO Aug 04, 2019 09:58
--- NOTE | 2019-08-04 11:10 | GI Progress Note ---
Assessment/Plan Problems: (1) Malnutrition ICD Codes: E46 - Unspecified protein-calorie malnutrition SNOMED: 88180986 (2) Drug abuse ICD Codes: F19.10 - Other psychoactive substance abuse, uncomplicated SNOMED: 49760136 Status: unchanged Status Narrative Discussed with Dr. Ahumada Assessment/Plan Urine toxicity positive for phencyclidine, amphetamines and marijuana History of colonoscopy x3 years with unremarkable findings Reported emesis over the weekend without melena emesis or coffee-ground No plans for any GI procedures at this time fu pulmonary recommendations Symptomatic treatment Advance diet as tolerated Zofran as needed PPI IV p.o. hydration Follow labs The patient was seen and examined at bedside and all new and available data was reviewed in the patients chart. I agree with the above findings, impression and plan. (Patient seen earlier today. Signature stamp does not reflect patient encounter time.). - Stevie Ahumada MD Subjective Subjective Patient has complaint of emesis over the weekend. Stated he was unable to tolerate any food. Denies any melena emesis or coffee-ground. At the time of evaluation, the patient states medication has helped his nausea and vomiting. Objective Last 24 Hour Vital Signs Date Time Temp Pulse Resp B/P (MAP) Pulse Ox O2 Delivery O2 Flow Rate FiO2 08/04/19 09:00 Nasal Cannula 2.0 08/04/19 08:00 97.8 78 20 140/80 (100) 98 08/04/19 04:00 98.1 82 20 131/68 (89) 97 08/04/19 00:00 98.2 82 18 143/73 (96) 95 08/03/19 20:01 Nasal Cannula 2.0 08/03/19 20:00 97.0 91 22 157/89 (111) 96 08/03/19 19:29 98 Nasal Cannula 2.0 28 08/03/19 19:29 77 18 98 Nasal Cannula 2.0 28 08/03/19 16:00 98.7 73 19 128/86 (100) 97 08/03/19 12:00 98.1 66 19 118/80 (93) 96 Intake and Output 08/03/19 08/04/19 19:00 07:00 Intake Total 1000 ml 1000 ml Balance 1000 ml 1000 ml IV Total 1000 ml 1000 ml # Voids 3 Laboratory Tests Test 08/04/19 06:13 White Blood Count 5.7 K/UL (4.8-10.8) Red Blood Count 4.79 M/UL (4.70-6.10) Hemoglobin 14.6 G/DL (14.2-18.0) Hematocrit 42.0 % (42.0-52.0) Mean Corpuscular Volume 88 FL (80-99) Mean Corpuscular Hemoglobin 30.6 PG (27.0-31.0) Mean Corpuscular Hemoglobin Concent 34.9 G/DL (32.0-36.0) Red Cell Distribution Width 11.6 % (11.6-14.8) Platelet Count 254 K/UL (150-450) Mean Platelet Volume 5.9 FL (6.5-10.1) L Neutrophils (%) (Auto) 33.3 % (45.0-75.0) L Lymphocytes (%) (Auto) 53.8 % (20.0-45.0) H Monocytes (%) (Auto) 9.7 % (1.0-10.0) Eosinophils (%) (Auto) 1.7 % (0.0-3.0) Basophils (%) (Auto) 1.5 % (0.0-2.0) Sodium Level 142 MMOL/L (136-145) Potassium Level 3.6 MMOL/L (3.5-5.1) Chloride Level 109 MMOL/L (98-107) H Carbon Dioxide Level 26 MMOL/L (21-32) Anion Gap 7 mmol/L (5-15) Blood Urea Nitrogen 9 mg/dL (7-18) Creatinine 1.0 MG/DL (0.55-1.30) Estimat Glomerular Filtration Rate > 60 mL/min (>60) Glucose Level 101 MG/DL (74-106) Calcium Level 8.1 MG/DL (8.5-10.1) L Total Bilirubin 0.6 MG/DL (0.2-1.0) Aspartate Amino Transf (AST/SGOT) 76 U/L (15-37) H Alanine Aminotransferase (ALT/SGPT) 130 U/L (12-78) H Alkaline Phosphatase 73 U/L (46-116) Total Protein 6.9 G/DL (6.4-8.2) Albumin 2.9 G/DL (3.4-5.0) L Globulin 4.0 g/dL Albumin/Globulin Ratio 0.7 (1.0-2.7) L Hepatitis A IgM Antibody Pending Hepatitis B Surface Antigen Pending Hepatitis B Core IgM Antibody Pending Hepatitis C Antibody Pending Height (Feet): 5 Height (Inches): 9.00 Weight (Pounds): 185 General Appearance: WD/WN, no apparent distress, alert Cardiovascular: normal rate Respiratory/Chest: normal breath sounds, no respiratory distress Abdominal Exam: normal bowel sounds, non tender, soft Extremities: normal range of motion, non-tender Michael Cadena NP Aug 04, 2019 11:10
[2019-08-04 12:00] VITALS: BP 140/80
--- NOTE | 2019-08-04 13:05 | Pulmonology Progress Note ---
Assessment/Plan Problems: (1) Intractable nausea and vomiting (2) Atypical pneumonia (3) Tobacco abuse (4) HIV (human immunodeficiency virus infection) (5) Drug abuse Assessment/Plan pt has every day new set of complains. today he is complaining of bloody stool f/u by GI check sputum ( nothing available yet continue abx, check electrolytes med/surg All medications and treatment were reviewed. Subjective ROS Limited/Unobtainable: No Constitutional: Reports: no symptoms HEENT: Repors: no symptoms Respiratory: Reports: no symptoms Allergies: Coded Allergies: EGG (Verified Allergy, Intermediate, Hives, 07/30/19) SHELLFISH DERIVED (Verified Allergy, Intermediate, Shortness of Breath, ) SOB and hives Objective Last 24 Hour Vital Signs Date Time Temp Pulse Resp B/P (MAP) Pulse Ox O2 Delivery O2 Flow Rate FiO2 08/04/19 12:00 97.7 61 20 140/80 (100) 99 08/04/19 09:00 Nasal Cannula 2.0 08/04/19 08:00 97.8 78 20 140/80 (100) 98 08/04/19 04:00 98.1 82 20 131/68 (89) 97 08/04/19 00:00 98.2 82 18 143/73 (96) 95 08/03/19 20:01 Nasal Cannula 2.0 08/03/19 20:00 97.0 91 22 157/89 (111) 96 08/03/19 19:29 98 Nasal Cannula 2.0 28 08/03/19 19:29 77 18 98 Nasal Cannula 2.0 28 08/03/19 16:00 98.7 73 19 128/86 (100) 97 Intake and Output 08/03/19 08/04/19 19:00 07:00 Intake Total 1000 ml 1000 ml Balance 1000 ml 1000 ml IV Total 1000 ml 1000 ml # Voids 3 General Appearance: WD/WN HEENT: normocephalic, atraumatic Respiratory/Chest: chest wall non-tender, lungs clear, no respiratory distress Cardiovascular: normal peripheral pulses, normal rate Abdomen: normal bowel sounds, no organomegaly Genitourinary: normal external genitalia Extremities: no clubbing Skin: no rash Microbiology Date/Time Source Procedure Growth Status 08/02/19 20:45 Sputum Gram Stain Pending Resulted 08/02/19 20:45 Sputum Sputum Culture - Preliminary NORMAL UPPER RESPIRATORY MERRY AT 24 ... Resulted 08/01/19 19:07 Sputum Induced Gram Stain - Final Complete 08/01/19 19:07 Sputum Culture - Final Usual Upper Respiratory Merry Complete Laboratory Tests 08/04/19 06:13: White Blood Count 5.7, Red Blood Count 4.79, Hemoglobin 14.6, Hematocrit 42.0, Mean Corpuscular Volume 88, Mean Corpuscular Hemoglobin 30.6, Mean Corpuscular Hemoglobin Concent 34.9, Red Cell Distribution Width 11.6, Platelet Count 254, Mean Platelet Volume 5.9L, Neutrophils (%) (Auto) 33.3L, Lymphocytes (%) (Auto) 53.8H, Monocytes (%) (Auto) 9.7, Eosinophils (%) (Auto) 1.7, Basophils (%) (Auto ) 1.5, Sodium Level 142, Potassium Level 3.6, Chloride Level 109H, Carbon Dioxide Level 26, Anion Gap 7, Blood Urea Nitrogen 9, Creatinine 1.0, Estimat Glomerular Filtration Rate > 60, Glucose Level 101, Calcium Level 8.1L, Total Bilirubin 0.6, Aspartate Amino Transf (AST/SGOT) 76H, Alanine Aminotransferase ( ALT/SGPT) 130H, Alkaline Phosphatase 73, Total Protein 6.9, Albumin 2.9L, Globulin 4.0, Albumin/Globulin Ratio 0.7L, Hepatitis A IgM Antibody [Pending], Hepatitis B Surface Antigen [Pending], Hepatitis B Core IgM Antibody [Pending], Hepatitis C Antibody [Pending] Current Medications Medications (Trade) Dose Ordered Sig/Anthony Route PRN Reason Start Time Stop Time Status Last Admin Dose Admin Acetaminophen (Tylenol) 650 mg Q4H PRN ORAL fever (temp>100.5F) 07/29/19 18:12 08/28/19 18:11 08/04/19 04:09 Dextrose (Dextrose 50%) 25 ml Q30M PRN IV Hypoglycemia 07/29/19 18:15 08/26/19 18:44 Dextrose (Dextrose 50%) 50 ml Q30M PRN IV Hypoglycemia 07/29/19 18:15 08/26/19 18:44 Dextrose/Sodium Chloride 1,000 ml @ 100 mls/hr Q10H IV 07/29/19 18:12 08/28/19 18:11 08/04/19 04:08 Diphenhydramine HCl (Benadryl) 25 mg Q6H PRN ORAL Itching/Pruritis 07/29/19 18:12 08/28/19 18:11 Guaifenesin/ Dextromethorphan (Robitussin DM Syrup) 15 ml Q4H PRN ORAL For Cough 07/29/19 18:12 08/28/19 18:11 08/03/19 21:17 Heparin Sodium (Porcine) (Heparin 5000 units/ml) 5,000 units EVERY 12 HOURS SUBQ 07/29/19 21:00 08/27/19 08:59 08/04/19 09:43 Morphine Sulfate (Morphine Sulfate) 2 mg Q4H PRN IVP Severe Pain (Pain Scale 7-10) 07/29/19 18:12 08/05/19 18:11 Ondansetron HCl (Zofran) 4 mg Q6H PRN IVP Nausea & Vomiting 07/29/19 18:13 08/28/19 18:12 08/03/19 13:12 Patient Own Medication (Patient's Own Med) 1 ea DAILY ORAL 07/30/19 16:30 08/29/19 16:29 08/04/19 09:40 Polyethylene Glycol (Miralax) 17 gm DAILYPRN PRN ORAL Constipation 07/29/19 18:13 08/28/19 18:12 Temazepam (Restoril) 15 mg HSPRN PRN ORAL Insomnia 08/02/19 21:00 08/07/19 20:59 08/03/19 20:29 Elle Salgado MD Aug 04, 2019 13:05
[2019-08-04] MEDS: Guaifenesin/DM 10ml syrup ORAL PRN (15:04)
[2019-08-04 16:00] VITALS: BP 146/82
[2019-08-04] MEDS ORDERED: D5 1/2NS 1000ml IV ONE (16:23)
[2019-08-04] MEDS ORDERED: D5NS 1000ml IV ONE (16:23)
--- NOTE | 2019-08-04 17:43 | Infectious Diseases Prog Note ---
Assessment/Plan Assessment/Plan Assessment/Plan: 59yo gentleman with PMH tobacco and marijuana abuse, also found to have PCP, amphetamine positive presents with one week of fever, chills , cough, sob, diarrhea. ID consulted for recommendation Tmax 100.3, SP No leukocytosis Lactate 1.6 CAP? 07/27 flu swab negative 07/27 CTPA: No evidence of pulmonary embolus, aortic dissection or aneurysm. Patchy bilateral infiltrates. Consider pneumonia. Correlate clinically. Hiatal hernia. Degenerative changes of the spine. 07/28 TTE: EF 60%, mild diastolic dysfunction 07/31 CXR: Unchanged left basilar atelectasis and possible patchy infiltrate, since 07/27/2019. Central bronchial wall thickening, likely indicating bronchitis changes 08/01 sputum cx: normal roverto 07/27 UA negative r/o bacteremia 06/26 BCx: ngtd HIV dx 1980s reports daily compliance with Biktarvy(previously used Genvoya, Truvada, etc) CD4 666 MRSA screen positive amphetamine, marijuana, PCP positive tobacco use Plan: monitor off antibiotics 07/31 SP cefepime, vancomycin, azithromycin #5 SP Ceftriaxone 07/27 f/u bcx trend temp, CBC Thank you for this consult. [facility] will continue to follow the patient with you. Subjective Allergies: Coded Allergies: EGG (Verified Allergy, Intermediate, Hives, 07/30/19) SHELLFISH DERIVED (Verified Allergy, Intermediate, Shortness of Breath, ) SOB and hives Subjective Afebrile. on 2L. reports feeling better tolerating food cough better costochondritis Objective Vital Signs Last 24 Hour Vital Signs Date Time Temp Pulse Resp B/P (MAP) Pulse Ox O2 Delivery O2 Flow Rate FiO2 08/04/19 12:00 97.7 61 20 140/80 (100) 99 08/04/19 09:00 Nasal Cannula 2.0 08/04/19 08:00 97.8 78 20 140/80 (100) 98 08/04/19 04:00 98.1 82 20 131/68 (89) 97 08/04/19 00:00 98.2 82 18 143/73 (96) 95 08/03/19 20:01 Nasal Cannula 2.0 08/03/19 20:00 97.0 91 22 157/89 (111) 96 08/03/19 19:29 98 Nasal Cannula 2.0 28 08/03/19 19:29 77 18 98 Nasal Cannula 2.0 28 Height (Feet): 5 Height (Inches): 9.00 Weight (Pounds): 185 Objective VS: afebrile. RA. Gen: NAD HEENT: anicteric sclera CV: RRR Resp: coarse crackles diffusely Abd: soft. no TTP. slightly distended. Ext: no LE edema Microbiology Date/Time Source Procedure Growth Status 08/02/19 20:45 Sputum Gram Stain - Final Resulted 08/02/19 20:45 Sputum Sputum Culture - Preliminary NORMAL UPPER RESPIRATORY ROVERTO AT 24 ... Resulted 08/01/19 19:07 Sputum Induced Gram Stain - Final Complete 08/01/19 19:07 Sputum Culture - Final Usual Upper Respiratory Roverto Complete Laboratory Tests Test 08/04/19 06:13 White Blood Count 5.7 K/UL (4.8-10.8) Red Blood Count 4.79 M/UL (4.70-6.10) Hemoglobin 14.6 G/DL (14.2-18.0) Hematocrit 42.0 % (42.0-52.0) Mean Corpuscular Volume 88 FL (80-99) Mean Corpuscular Hemoglobin 30.6 PG (27.0-31.0) Mean Corpuscular Hemoglobin Concent 34.9 G/DL (32.0-36.0) Red Cell Distribution Width 11.6 % (11.6-14.8) Platelet Count 254 K/UL (150-450) Mean Platelet Volume 5.9 FL (6.5-10.1) L Neutrophils (%) (Auto) 33.3 % (45.0-75.0) L Lymphocytes (%) (Auto) 53.8 % (20.0-45.0) H Monocytes (%) (Auto) 9.7 % (1.0-10.0) Eosinophils (%) (Auto) 1.7 % (0.0-3.0) Basophils (%) (Auto) 1.5 % (0.0-2.0) Sodium Level 142 MMOL/L (136-145) Potassium Level 3.6 MMOL/L (3.5-5.1) Chloride Level 109 MMOL/L (98-107) H Carbon Dioxide Level 26 MMOL/L (21-32) Anion Gap 7 mmol/L (5-15) Blood Urea Nitrogen 9 mg/dL (7-18) Creatinine 1.0 MG/DL (0.55-1.30) Estimat Glomerular Filtration Rate > 60 mL/min (>60) Glucose Level 101 MG/DL (74-106) Calcium Level 8.1 MG/DL (8.5-10.1) L Total Bilirubin 0.6 MG/DL (0.2-1.0) Aspartate Amino Transf (AST/SGOT) 76 U/L (15-37) H Alanine Aminotransferase (ALT/SGPT) 130 U/L (12-78) H Alkaline Phosphatase 73 U/L (46-116) Total Protein 6.9 G/DL (6.4-8.2) Albumin 2.9 G/DL (3.4-5.0) L Globulin 4.0 g/dL Albumin/Globulin Ratio 0.7 (1.0-2.7) L Hepatitis A IgM Antibody Pending Hepatitis B Surface Antigen Pending Hepatitis B Core IgM Antibody Pending Hepatitis C Antibody Pending Current Medications Medications (Trade) Dose Ordered Sig/Anthony Route PRN Reason Start Time Stop Time Status Last Admin Dose Admin Acetaminophen (Tylenol) 650 mg Q4H PRN ORAL fever (temp>100.5F) 07/29/19 18:12 08/28/19 18:11 08/04/19 14:46 Dextrose (Dextrose 50%) 25 ml Q30M PRN IV Hypoglycemia 07/29/19 18:15 08/26/19 18:44 Dextrose (Dextrose 50%) 50 ml Q30M PRN IV Hypoglycemia 07/29/19 18:15 08/26/19 18:44 Dextrose/Sodium Chloride 1,000 ml @ 100 mls/hr Q10H IV 07/29/19 18:12 08/28/19 18:11 08/04/19 14:12 Diphenhydramine HCl (Benadryl) 25 mg Q6H PRN ORAL Itching/Pruritis 07/29/19 18:12 08/28/19 18:11 Guaifenesin/ Dextromethorphan (Robitussin DM Syrup) 15 ml Q4H PRN ORAL For Cough 07/29/19 18:12 08/28/19 18:11 08/04/19 15:04 Heparin Sodium (Porcine) (Heparin 5000 units/ml) 5,000 units EVERY 12 HOURS SUBQ 07/29/19 21:00 08/27/19 08:59 08/04/19 09:43 Morphine Sulfate (Morphine Sulfate) 2 mg Q4H PRN IVP Severe Pain (Pain Scale 7-10) 07/29/19 18:12 08/05/19 18:11 Ondansetron HCl (Zofran) 4 mg Q6H PRN IVP Nausea & Vomiting 07/29/19 18:13 08/28/19 18:12 08/04/19 17:36 Patient Own Medication (Patient's Own Med) 1 ea DAILY ORAL 07/30/19 16:30 08/29/19 16:29 08/04/19 09:40 Polyethylene Glycol (Miralax) 17 gm DAILYPRN PRN ORAL Constipation 07/29/19 18:13 08/28/19 18:12 Temazepam (Restoril) 15 mg HSPRN PRN ORAL Insomnia 08/02/19 21:00 08/07/19 20:59 08/03/19 20:29 Olman Torres MD Aug 04, 2019 17:43
[2019-08-04 20:00] VITALS: BP 139/78
--- NOTE | 2019-08-04 20:00 | NUR ---
NURSE NOTES: PATIENT IN BED, ASLEEP, AROUSABLE TO NAME. NO COMPLAINTS OF PAIN AT THIS TIME. NO S/S RESPIRATORY DISTRESS NOTED. BED IN LOWEST POSITION, CALL LIGHT WITHIN REACH. WILL CONTINUE TO MONITOR.
[2019-08-05] VITALS: BP 142/82
[2019-08-05] MEDS: D5NS 1,000 ML IV SCH ×3 (00:12→17:44)
[2019-08-05 04:53] VITALS: BP 142/84
--- NOTE | 2019-08-05 07:08 | NUR ---
HAND-OFF: Report given to ANNA BANKS RN. PATIENT IN STABLE CONDITION.
[2019-08-05 07:30] VITALS: BP 137/85
[2019-08-05 07:43] LABS: BASOPHILS % (AUTO) 2.1 % (0.0-2.0); EOSINOPHILS % (AUTO) 1.4 % (0.0-3.0); HEMATOCRIT 44.8 % (42.0-52.0); HEMOGLOBIN 15.4 G/DL (14.2-18.0); LYMPHOCYTES % (AUTO) 54.2 % (20.0-45.0); MEAN CORPUSCULAR VOLUME 87 FL (80-99); NEUTROPHILS % (AUTO) 32.4 % (45.0-75.0); PLATELET COUNT 296 K/UL (150-450); RED BLOOD COUNT 5.15 M/UL (4.70-6.10); RED CELL DISTRIBUTION WIDTH 11.8 % (11.6-14.8)
[2019-08-05 07:52] LABS: ANION GAP 6 mmol/L (5-15); BLOOD UREA NITROGEN 9 mg/dL (7-18); CALCIUM 8.4 MG/DL (8.5-10.1); CARBON DIOXIDE 29 MMOL/L (21-32); CHLORIDE 107 MMOL/L (98-107); CREATININE 1.2 MG/DL (0.55-1.30); POTASSIUM 3.7 MMOL/L (3.5-5.1); SODIUM 142 MMOL/L (136-145)
[2019-08-05] MEDS: BIKTARVY ORAL SCH (09:00)
[2019-08-05] MEDS: Heparin 5000 units/ml inj SUBQ SCH ×2 (09:31→20:14)
--- NOTE | 2019-08-05 11:21 | Pulmonology Progress Note ---
Assessment/Plan Problems: (1) Intractable nausea and vomiting (2) Atypical pneumonia (3) Tobacco abuse (4) HIV (human immunodeficiency virus infection) (5) Drug abuse Assessment/Plan doing better today f/u by GI check sputum ( nothing available yet continue abx, check electrolytes med/surg All medications and treatment were reviewed. ok to dc home Subjective ROS Limited/Unobtainable: Yes Constitutional: Reports: no symptoms HEENT: Repors: no symptoms Respiratory: Reports: no symptoms Allergies: Coded Allergies: EGG (Verified Allergy, Intermediate, Hives, 07/30/19) SHELLFISH DERIVED (Verified Allergy, Intermediate, Shortness of Breath, ) SOB and hives Objective Last 24 Hour Vital Signs Date Time Temp Pulse Resp B/P (MAP) Pulse Ox O2 Delivery O2 Flow Rate FiO2 08/05/19 10:10 Nasal Cannula 2.0 Nasal Cannula 2.0 08/05/19 08:33 98 Nasal Cannula 2.0 28 08/05/19 08:33 68 15 98 Nasal Cannula 2.0 28 08/05/19 07:30 98.1 65 12 137/85 (102) 100 08/05/19 04:53 98.1 67 18 142/84 (103) 98 08/05/19 03:54 98.2 08/05/19 00:00 98.2 69 18 142/82 (102) 97 08/04/19 21:46 Nasal Cannula 2.0 08/04/19 20:00 98.2 69 18 139/78 (98) 98 08/04/19 16:00 99.0 72 20 146/82 (103) 100 08/04/19 12:00 97.7 61 20 140/80 (100) 99 Intake and Output 08/04/19 08/05/19 19:00 07:00 Intake Total 1080 ml 200 ml Output Total 1000 ml 600 ml Balance 80 ml -400 ml Intake Oral 1080 ml IV Total 200 ml Output Urine Total 1000 ml 600 ml # Voids 3 General Appearance: WD/WN HEENT: normocephalic Respiratory/Chest: chest wall non-tender, lungs clear Cardiovascular: normal peripheral pulses, normal rate Abdomen: normal bowel sounds, soft, non tender Genitourinary: normal external genitalia Extremities: no clubbing Skin: no lesions Microbiology Date/Time Source Procedure Growth Status 08/02/19 20:45 Sputum Gram Stain - Final Complete 08/02/19 20:45 Sputum Sputum Culture - Final NORMAL UPPER RESPIRATORY SHYANNE PRESENT Complete Laboratory Tests 08/05/19 06:45: White Blood Count 6.0, Red Blood Count 5.15, Hemoglobin 15.4, Hematocrit 44.8, Mean Corpuscular Volume 87, Mean Corpuscular Hemoglobin 30.0, Mean Corpuscular Hemoglobin Concent 34.5, Red Cell Distribution Width 11.8, Platelet Count 296, Mean Platelet Volume 5.8L, Neutrophils (%) (Auto) 32.4L, Lymphocytes (%) (Auto) 54.2H, Monocytes (%) (Auto) 10.0, Eosinophils (%) (Auto) 1.4, Basophils (%) ( Auto) 2.1H, Sodium Level 142, Potassium Level 3.7, Chloride Level 107, Carbon Dioxide Level 29, Anion Gap 6, Blood Urea Nitrogen 9, Creatinine 1.2, Estimat Glomerular Filtration Rate > 60, Glucose Level 97, Calcium Level 8.4L Current Medications Medications (Trade) Dose Ordered Sig/Anthony Route PRN Reason Start Time Stop Time Status Last Admin Dose Admin Acetaminophen (Tylenol) 650 mg Q4H PRN ORAL fever (temp>100.5F) 07/29/19 18:12 08/28/19 18:11 08/05/19 10:08 Dextrose (Dextrose 50%) 25 ml Q30M PRN IV Hypoglycemia 07/29/19 18:15 08/26/19 18:44 Dextrose (Dextrose 50%) 50 ml Q30M PRN IV Hypoglycemia 07/29/19 18:15 08/26/19 18:44 Dextrose/Sodium Chloride 1,000 ml @ 100 mls/hr Q10H IV 07/29/19 18:12 08/28/19 18:11 08/05/19 08:29 Diphenhydramine HCl (Benadryl) 25 mg Q6H PRN ORAL Itching/Pruritis 07/29/19 18:12 08/28/19 18:11 Guaifenesin/ Dextromethorphan (Robitussin DM Syrup) 15 ml Q4H PRN ORAL For Cough 07/29/19 18:12 08/28/19 18:11 08/04/19 15:04 Heparin Sodium (Porcine) (Heparin 5000 units/ml) 5,000 units EVERY 12 HOURS SUBQ 11/5/19 21:00 08/27/19 08:59 08/05/19 09:31 Morphine Sulfate (Morphine Sulfate) 2 mg Q4H PRN IVP Severe Pain (Pain Scale 7-10) 07/29/19 18:12 08/05/19 18:11 Ondansetron HCl (Zofran) 4 mg Q6H PRN IVP Nausea & Vomiting 07/29/19 18:13 08/28/19 18:12 08/04/19 17:36 Patient Own Medication (Patient's Own Med) 1 ea DAILY ORAL 07/30/19 16:30 08/29/19 16:29 08/05/19 09:00 Polyethylene Glycol (Miralax) 17 gm DAILYPRN PRN ORAL Constipation 07/29/19 18:13 08/28/19 18:12 Temazepam (Restoril) 15 mg HSPRN PRN ORAL Insomnia 08/02/19 21:00 08/07/19 20:59 08/04/19 20:43 Elle Salgado MD Aug 05, 2019 11:21
--- NOTE | 2019-08-05 11:21 | GI Progress Note ---
Assessment/Plan Problems: (1) Malnutrition ICD Codes: E46 - Unspecified protein-calorie malnutrition SNOMED: 34629499 (2) Drug abuse ICD Codes: F19.10 - Other psychoactive substance abuse, uncomplicated SNOMED: 80986424 Status: unchanged Status Narrative Discussed with Dr. Ahumada. Assessment/Plan Urine toxicity positive for phencyclidine, amphetamines and marijuana History of colonoscopy x3 years with unremarkable findings Reported emesis over the weekend without melena emesis or coffee-ground No plans for any GI procedures at this time fu pulmonary recommendations Symptomatic treatment Advance diet as tolerated Zofran as needed PPI IV p.o. hydration Follow labs The patient was seen and examined at bedside and all new and available data was reviewed in the patients chart. I agree with the above findings, impression and plan. (Patient seen earlier today. Signature stamp does not reflect patient encounter time.). - Stevie Ahumada MD Subjective Subjective Has c/o of abdominal discomfort no reported recurrent emesis Objective Last 24 Hour Vital Signs Date Time Temp Pulse Resp B/P (MAP) Pulse Ox O2 Delivery O2 Flow Rate FiO2 08/05/19 10:10 Nasal Cannula 2.0 Nasal Cannula 2.0 08/05/19 08:33 98 Nasal Cannula 2.0 28 08/05/19 08:33 68 15 98 Nasal Cannula 2.0 28 08/05/19 07:30 98.1 65 12 137/85 (102) 100 08/05/19 04:53 98.1 67 18 142/84 (103) 98 08/05/19 03:54 98.2 08/05/19 00:00 98.2 69 18 142/82 (102) 97 08/04/19 21:46 Nasal Cannula 2.0 08/04/19 20:00 98.2 69 18 139/78 (98) 98 08/04/19 16:00 99.0 72 20 146/82 (103) 100 08/04/19 12:00 97.7 61 20 140/80 (100) 99 Intake and Output 08/04/19 08/05/19 19:00 07:00 Intake Total 1080 ml 200 ml Output Total 1000 ml 600 ml Balance 80 ml -400 ml Intake Oral 1080 ml IV Total 200 ml Output Urine Total 1000 ml 600 ml # Voids 3 Laboratory Tests Test 08/05/19 06:45 White Blood Count 6.0 K/UL (4.8-10.8) Red Blood Count 5.15 M/UL (4.70-6.10) Hemoglobin 15.4 G/DL (14.2-18.0) Hematocrit 44.8 % (42.0-52.0) Mean Corpuscular Volume 87 FL (80-99) Mean Corpuscular Hemoglobin 30.0 PG (27.0-31.0) Mean Corpuscular Hemoglobin Concent 34.5 G/DL (32.0-36.0) Red Cell Distribution Width 11.8 % (11.6-14.8) Platelet Count 296 K/UL (150-450) Mean Platelet Volume 5.8 FL (6.5-10.1) L Neutrophils (%) (Auto) 32.4 % (45.0-75.0) L Lymphocytes (%) (Auto) 54.2 % (20.0-45.0) H Monocytes (%) (Auto) 10.0 % (1.0-10.0) Eosinophils (%) (Auto) 1.4 % (0.0-3.0) Basophils (%) (Auto) 2.1 % (0.0-2.0) H Sodium Level 142 MMOL/L (136-145) Potassium Level 3.7 MMOL/L (3.5-5.1) Chloride Level 107 MMOL/L (98-107) Carbon Dioxide Level 29 MMOL/L (21-32) Anion Gap 6 mmol/L (5-15) Blood Urea Nitrogen 9 mg/dL (7-18) Creatinine 1.2 MG/DL (0.55-1.30) Estimat Glomerular Filtration Rate > 60 mL/min (>60) Glucose Level 97 MG/DL (74-106) Calcium Level 8.4 MG/DL (8.5-10.1) L Height (Feet): 5 Height (Inches): 9.00 Weight (Pounds): 185 General Appearance: WD/WN, no apparent distress, alert Cardiovascular: normal rate Respiratory/Chest: normal breath sounds, no respiratory distress Abdominal Exam: normal bowel sounds, non tender, soft Extremities: normal range of motion, non-tender Michael Cadena NP Aug 05, 2019 11:21
[2019-08-05 11:31] VITALS: BP 141/85
--- NOTE | 2019-08-05 14:18 | NUR ---
*-* INSURANCE *-* ALL CLINICALS AND REVIEWS HAVE BEEN FAXED TO: [facility] Ref#[id number] CM: [employer] #[phone] ext [phone]
--- NOTE | 2019-08-05 14:35 | General Progress Note ---
Assessment/Plan Problem List: (1) HIV (human immunodeficiency virus infection) ICD Codes: B20 - Human immunodeficiency virus [HIV] disease SNOMED: 41026169 (2) Malnutrition ICD Codes: E46 - Unspecified protein-calorie malnutrition SNOMED: 68988877 (3) Sepsis ICD Codes: A41.9 - Sepsis, unspecified organism SNOMED: 52258740 (4) Atypical pneumonia ICD Codes: J18.9 - Pneumonia, unspecified organism SNOMED: 413320715 (5) Drug abuse ICD Codes: F19.10 - Other psychoactive substance abuse, uncomplicated SNOMED: 81585807 Status: unchanged Assessment/Plan: o2 pulm tx abx pt diet cbc bmp am gi heme eval Subjective Constitutional: Reports: weakness Allergies: Coded Allergies: EGG (Verified Allergy, Intermediate, Hives, 07/30/19) SHELLFISH DERIVED (Verified Allergy, Intermediate, Shortness of Breath, ) SOB and hives All Systems: reviewed and negative except above Subjective o2 nc sl vomit Objective Last 24 Hour Vital Signs Date Time Temp Pulse Resp B/P (MAP) Pulse Ox O2 Delivery O2 Flow Rate FiO2 08/05/19 11:31 97.5 61 16 141/85 (103) 97 08/05/19 10:10 Nasal Cannula 2.0 Nasal Cannula 2.0 08/05/19 09:00 Nasal Cannula 2.0 08/05/19 08:33 98 Nasal Cannula 2.0 28 08/05/19 08:33 68 15 98 Nasal Cannula 2.0 28 08/05/19 07:30 98.1 65 12 137/85 (102) 100 08/05/19 04:53 98.1 67 18 142/84 (103) 98 08/05/19 03:54 98.2 08/05/19 00:00 98.2 69 18 142/82 (102) 97 08/04/19 21:46 Nasal Cannula 2.0 08/04/19 20:00 98.2 69 18 139/78 (98) 98 08/04/19 16:00 99.0 72 20 146/82 (103) 100 Intake and Output 08/04/19 08/05/19 19:00 07:00 Intake Total 1080 ml 300 ml Output Total 1000 ml 600 ml Balance 80 ml -300 ml Intake Oral 1080 ml IV Total 300 ml Output Urine Total 1000 ml 600 ml # Voids 3 Laboratory Tests 08/05/19 06:45: White Blood Count 6.0, Red Blood Count 5.15, Hemoglobin 15.4, Hematocrit 44.8, Mean Corpuscular Volume 87, Mean Corpuscular Hemoglobin 30.0, Mean Corpuscular Hemoglobin Concent 34.5, Red Cell Distribution Width 11.8, Platelet Count 296, Mean Platelet Volume 5.8L, Neutrophils (%) (Auto) 32.4L, Lymphocytes (%) (Auto) 54.2H, Monocytes (%) (Auto) 10.0, Eosinophils (%) (Auto) 1.4, Basophils (%) ( Auto) 2.1H, Sodium Level 142, Potassium Level 3.7, Chloride Level 107, Carbon Dioxide Level 29, Anion Gap 6, Blood Urea Nitrogen 9, Creatinine 1.2, Estimat Glomerular Filtration Rate > 60, Glucose Level 97, Calcium Level 8.4L Height (Feet): 5 Height (Inches): 9.00 Weight (Pounds): 185 General Appearance: lethargic EENT: normal ENT inspection Neck: normal alignment Cardiovascular: normal peripheral pulses, normal rate, regular rhythm Respiratory/Chest: chest wall non-tender, lungs clear, normal breath sounds Abdomen: normal bowel sounds, non tender, soft Extremities: normal inspection Edema: no edema noted Arm (L), no edema noted Arm (R), no edema noted Leg (L), no edema noted Leg (R), no edema noted Pedal (L), no edema noted Pedal (R), no edema noted Generalized Neurologic: motor weakness Skin: normal pigmentation, warm/dry Ion Temple DO Aug 05, 2019 14:35
[2019-08-05 16:00] VITALS: BP 135/61
--- NOTE | 2019-08-05 16:28 | Infectious Diseases Prog Note ---
Assessment/Plan Assessment/Plan Assessment/Plan: 59yo gentleman with PMH tobacco and marijuana abuse, also found to have PCP, amphetamine positive presents with one week of fever, chills , cough, sob, diarrhea. ID consulted for recommendation Tmax 100.3, SP No leukocytosis Lactate 1.6 CAP? 07/27 flu swab negative 07/27 CTPA: No evidence of pulmonary embolus, aortic dissection or aneurysm. Patchy bilateral infiltrates. Consider pneumonia. Correlate clinically. Hiatal hernia. Degenerative changes of the spine. 07/28 TTE: EF 60%, mild diastolic dysfunction 07/31 CXR: Unchanged left basilar atelectasis and possible patchy infiltrate, since 07/27/2019. Central bronchial wall thickening, likely indicating bronchitis changes 08/01 sputum cx: normal roverto 07/27 UA negative r/o bacteremia 06/26 BCx: ngtd HIV dx 1980s reports daily compliance with Biktarvy(previously used Genvoya, Truvada, etc) CD4 666 MRSA screen positive amphetamine, marijuana, PCP positive tobacco use Plan: monitor off antibiotics 07/31 SP cefepime, vancomycin, azithromycin #5 SP Ceftriaxone 07/27 f/u bcx trend temp, CBC f/u hepatitis panel f/u US abdomen Thank you for this consult. [facility] will continue to follow the patient with you. Subjective Allergies: Coded Allergies: EGG (Verified Allergy, Intermediate, Hives, 07/30/19) SHELLFISH DERIVED (Verified Allergy, Intermediate, Shortness of Breath, ) SOB and hives Subjective Afebrile. on 2L. reports feeling better still with cough and costochondritis Spaghetti sauce upset his stomach Objective Vital Signs Last 24 Hour Vital Signs Date Time Temp Pulse Resp B/P (MAP) Pulse Ox O2 Delivery O2 Flow Rate FiO2 08/05/19 11:31 97.5 61 16 141/85 (103) 97 08/05/19 10:10 Nasal Cannula 2.0 Nasal Cannula 2.0 08/05/19 09:00 Nasal Cannula 2.0 08/05/19 08:33 98 Nasal Cannula 2.0 28 08/05/19 08:33 68 15 98 Nasal Cannula 2.0 28 08/05/19 07:30 98.1 65 12 137/85 (102) 100 08/05/19 04:53 98.1 67 18 142/84 (103) 98 08/05/19 03:54 98.2 08/05/19 00:00 98.2 69 18 142/82 (102) 97 08/04/19 21:46 Nasal Cannula 2.0 08/04/19 20:00 98.2 69 18 139/78 (98) 98 Height (Feet): 5 Height (Inches): 9.00 Weight (Pounds): 185 Objective VS: afebrile. RA. Gen: NAD HEENT: anicteric sclera CV: RRR Resp: coarse crackles diffusely Abd: soft. no TTP. slightly distended. Ext: no LE edema Microbiology Date/Time Source Procedure Growth Status 08/02/19 20:45 Sputum Gram Stain - Final Complete 08/02/19 20:45 Sputum Sputum Culture - Final NORMAL UPPER RESPIRATORY ROVERTO PRESENT Complete Laboratory Tests Test 08/05/19 06:45 White Blood Count 6.0 K/UL (4.8-10.8) Red Blood Count 5.15 M/UL (4.70-6.10) Hemoglobin 15.4 G/DL (14.2-18.0) Hematocrit 44.8 % (42.0-52.0) Mean Corpuscular Volume 87 FL (80-99) Mean Corpuscular Hemoglobin 30.0 PG (27.0-31.0) Mean Corpuscular Hemoglobin Concent 34.5 G/DL (32.0-36.0) Red Cell Distribution Width 11.8 % (11.6-14.8) Platelet Count 296 K/UL (150-450) Mean Platelet Volume 5.8 FL (6.5-10.1) L Neutrophils (%) (Auto) 32.4 % (45.0-75.0) L Lymphocytes (%) (Auto) 54.2 % (20.0-45.0) H Monocytes (%) (Auto) 10.0 % (1.0-10.0) Eosinophils (%) (Auto) 1.4 % (0.0-3.0) Basophils (%) (Auto) 2.1 % (0.0-2.0) H Sodium Level 142 MMOL/L (136-145) Potassium Level 3.7 MMOL/L (3.5-5.1) Chloride Level 107 MMOL/L (98-107) Carbon Dioxide Level 29 MMOL/L (21-32) Anion Gap 6 mmol/L (5-15) Blood Urea Nitrogen 9 mg/dL (7-18) Creatinine 1.2 MG/DL (0.55-1.30) Estimat Glomerular Filtration Rate > 60 mL/min (>60) Glucose Level 97 MG/DL (74-106) Calcium Level 8.4 MG/DL (8.5-10.1) L Current Medications Medications (Trade) Dose Ordered Sig/Anthony Route PRN Reason Start Time Stop Time Status Last Admin Dose Admin Acetaminophen (Tylenol) 650 mg Q4H PRN ORAL fever (temp>100.5F) 07/29/19 18:12 08/28/19 18:11 08/05/19 10:08 Dextrose (Dextrose 50%) 25 ml Q30M PRN IV Hypoglycemia 07/29/19 18:15 08/26/19 18:44 Dextrose (Dextrose 50%) 50 ml Q30M PRN IV Hypoglycemia 07/29/19 18:15 08/26/19 18:44 Dextrose/Sodium Chloride 1,000 ml @ 100 mls/hr Q10H IV 07/29/19 18:12 08/28/19 18:11 08/05/19 08:29 Diphenhydramine HCl (Benadryl) 25 mg Q6H PRN ORAL Itching/Pruritis 07/29/19 18:12 08/28/19 18:11 Guaifenesin/ Dextromethorphan (Robitussin DM Syrup) 15 ml Q4H PRN ORAL For Cough 07/29/19 18:12 08/28/19 18:11 08/04/19 15:04 Heparin Sodium (Porcine) (Heparin 5000 units/ml) 5,000 units EVERY 12 HOURS SUBQ 07/29/19 21:00 08/27/19 08:59 08/05/19 09:31 Morphine Sulfate (Morphine Sulfate) 2 mg Q4H PRN IVP Severe Pain (Pain Scale 7-10) 07/29/19 18:12 08/05/19 18:11 Ondansetron HCl (Zofran) 4 mg Q6H PRN IVP Nausea & Vomiting 07/29/19 18:13 08/28/19 18:12 08/04/19 17:36 Patient Own Medication (Patient's Own Med) 1 ea DAILY ORAL 07/30/19 16:30 08/29/19 16:29 08/05/19 09:00 Polyethylene Glycol (Miralax) 17 gm DAILYPRN PRN ORAL Constipation 07/29/19 18:13 08/28/19 18:12 Temazepam (Restoril) 15 mg HSPRN PRN ORAL Insomnia 08/02/19 21:00 08/07/19 20:59 08/04/19 20:43 Olman Torres MD Aug 05, 2019 16:28
--- NOTE | 2019-08-05 16:50 | NUR ---
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 97.5 HR 61 RR 16 B/P 141/83 2L NC IS: IVF D5NS@ 100ML/HR HEPARIN SUBC MED/SURG STATUS
--- NOTE | 2019-08-05 18:45 | NUR ---
NURSE NOTES: PT STATES HIS IV ACCESS IS HURTING. LEFT FOREARM NOTED TO BE PUFFY AND TENDER TO TOUCH. RN EDUCATED PT IV ACCESS NEEDS TO BE TAKEN OUT. PT REFUSED AT FIRST, STATING HE JUST WANTS HIS ARM TO REST AND DOESN'T WANT THE NURSES TO ATTEMPT IV INSERTION. PT LATER AGREED TO HAVE IV ACCESS TAKEN OUT BUT STILL WANTS IV TAKEN OUT AT A LATER TIME.
--- NOTE | 2019-08-05 19:00 | NUR ---
NURSE NOTES: PT STATES HE HAD AN EPISODE OF SHORTNESS OF BREATH AND NAUSEA. PT'S VITALS WERE CHECKED: BP 150/71, PULSE 74, O2 SATURATION 96% ON ROOM AIR. PT STATES THE EPISODE OF NAUSEA HAS PASSED. PT STATES HE DOES NOT NEED THE ZOFRAN NOW FOR NAUSEA, AND WANTS IV ACCESS PLACED LATER. IN NO APPARENT DISTRESS AT THIS TIME. PT EDUCATED ON FALL/SAFETY AND NOT TO WALK BY HIMSELF IF DIZZY. PT VERBALIZED UNDERSTANDING. WILL CONTINUE TO MONITOR.
--- NOTE | 2019-08-05 19:40 | NUR ---
NURSE NOTES: Received report from DEBORAH Hester. Pt resting in bed. AAO x 4, NC 2L/min. Pt has pain on L arm, no IV access, and L arm swollen. Ice pack applied on L arm. Will insert new IV. NPO midnight for US abd. Bed locked, lowest position, alarm on, side rails up x 2, call light within reach. Will continue to monitor.
[2019-08-05 20:00] VITALS: BP 142/79
--- NOTE | 2019-08-05 20:26 | NUR ---
HAND-OFF: Report given to Danita CORRIGAN RN.
[2019-08-05] MEDS ORDERED: Albuterol/Ipratropium 3ml neb HHN PRN (20:30)
[2019-08-06] VITALS: BP 151/89
[2019-08-06 04:00] VITALS: BP 144/74
--- NOTE | 2019-08-06 04:39 | NUR ---
NURSE NOTES: Pt refused new IV insertion. RN educated pt about importance of IV. Pt verbalized understand but refused x 3.
[2019-08-06] MEDS: D5NS 1,000 ML IV SCH ×3 (04:41→18:45)
--- NOTE | 2019-08-06 05:52 | NUR ---
NURSE NOTES: Pt wants stronger pain med for swollen arm. RN left message Dr. Temple for pain med and no IV access. Waiting for call back. Addendum: 08/06/19 at 0626 by BRITTNI CORRIGAN RN RN NURSE NOTES: Received order. Morphine 2mg iv q4hr prn pain, venous duplex x 4 extremity, PICC line PRN. Order noted and carried out.
[2019-08-06] MEDS ORDERED: Heparin1,000 units/500ml Premix(Conc:2 units/ml) IV SCH (06:15)
[2019-08-06] MEDS ORDERED: Morphine Sulfate 2mg/ml Inj(IV/IM USE ONLY) IVP PRN (06:15)
[2019-08-06] MEDS ORDERED: Lidocaine 1% Plain 30 ml INJ SCH (06:15)
[2019-08-06 06:50] LABS: EOSINOPHILS % (AUTO) 0.8 % (0.0-3.0); HEMATOCRIT 46.5 % (42.0-52.0); HEMOGLOBIN 16.1 G/DL (14.2-18.0); LYMPHOCYTES % (AUTO) 41.5 % (20.0-45.0); MEAN CORPUSCULAR VOLUME 87 FL (80-99); MONOCYTES % (AUTO) 10.5 % (1.0-10.0); NEUTROPHILS % (AUTO) 46.2 % (45.0-75.0); PLATELET COUNT 314 K/UL (150-450); RED BLOOD COUNT 5.35 M/UL (4.70-6.10); RED CELL DISTRIBUTION WIDTH 11.8 % (11.6-14.8); WHITE BLOOD COUNT 8.9 K/UL (4.8-10.8)
--- NOTE | 2019-08-06 06:56 | NUR ---
HAND-OFF: Report given to DEBORAH Hester.
[2019-08-06 07:40] LABS: ANION GAP 12 mmol/L (5-15); BLOOD UREA NITROGEN 9 mg/dL (7-18); CALCIUM 8.5 MG/DL (8.5-10.1); CARBON DIOXIDE 23 MMOL/L (21-32); CHLORIDE 106 MMOL/L (98-107); CREATININE 1.1 MG/DL (0.55-1.30); SODIUM 141 MMOL/L (136-145)
[2019-08-06 08:00] VITALS: BP 140/86
[2019-08-06] MEDS: Heparin 5000 units/ml inj SUBQ SCH ×2 (09:12→20:52)
[2019-08-06] MEDS: BIKTARVY ORAL SCH (09:13)
--- NOTE | 2019-08-06 09:16 | General Progress Note ---
Assessment/Plan Problem List: (1) HIV (human immunodeficiency virus infection) ICD Codes: B20 - Human immunodeficiency virus [HIV] disease SNOMED: 65987207 (2) Malnutrition ICD Codes: E46 - Unspecified protein-calorie malnutrition SNOMED: 67406846 (3) Sepsis ICD Codes: A41.9 - Sepsis, unspecified organism SNOMED: 73275415 (4) Atypical pneumonia ICD Codes: J18.9 - Pneumonia, unspecified organism SNOMED: 198527604 (5) Drug abuse ICD Codes: F19.10 - Other psychoactive substance abuse, uncomplicated SNOMED: 42936629 Status: unchanged Assessment/Plan: o2 pulm tx abx pt diet cbc bmp am gi heme eval dc plan if clear Subjective Constitutional: Reports: weakness Respiratory: Reports: cough Allergies: Coded Allergies: EGG (Verified Allergy, Intermediate, Hives, 07/30/19) SHELLFISH DERIVED (Verified Allergy, Intermediate, Shortness of Breath, ) SOB and hives All Systems: reviewed and negative except above Subjective o2 nc sl vomit Objective Last 24 Hour Vital Signs Date Time Temp Pulse Resp B/P (MAP) Pulse Ox O2 Delivery O2 Flow Rate FiO2 08/06/19 08:00 97.9 82 16 140/86 (104) 97 08/06/19 08:00 97.9 82 16 140/86 (104) 97 08/06/19 04:00 99.1 90 20 144/74 (97) 93 08/06/19 00:00 97.5 91 18 151/89 (109) 93 08/05/19 21:00 Nasal Cannula 2.0 Nasal Cannula 2.0 08/05/19 20:00 98.2 73 18 142/79 (100) 97 08/05/19 16:00 98.3 69 16 135/61 (85) 98 08/05/19 11:31 97.5 61 16 141/85 (103) 97 08/05/19 10:10 Nasal Cannula 2.0 Nasal Cannula 2.0 Intake and Output 08/05/19 08/06/19 19:00 07:00 Intake Total 800 ml Balance 800 ml IV Total 800 ml # Voids 5 Laboratory Tests 08/06/19 04:50: White Blood Count 8.9, Red Blood Count 5.35, Hemoglobin 16.1, Hematocrit 46.5, Mean Corpuscular Volume 87, Mean Corpuscular Hemoglobin 30.0, Mean Corpuscular Hemoglobin Concent 34.5, Red Cell Distribution Width 11.8, Platelet Count 314, Mean Platelet Volume 5.4L, Neutrophils (%) (Auto) 46.2, Lymphocytes (%) (Auto) 41.5, Monocytes (%) (Auto) 10.5H, Eosinophils (%) (Auto) 0.8, Basophils (%) ( Auto) 1.0, Sodium Level 141, Potassium Level 4.0, Chloride Level 106, Carbon Dioxide Level 23, Anion Gap 12, Blood Urea Nitrogen 9, Creatinine 1.1, Estimat Glomerular Filtration Rate > 60, Glucose Level 86, Calcium Level 8.5 Height (Feet): 5 Height (Inches): 9.00 Weight (Pounds): 184 General Appearance: lethargic EENT: normal ENT inspection Neck: normal alignment Cardiovascular: normal peripheral pulses, normal rate, regular rhythm Respiratory/Chest: chest wall non-tender, lungs clear, normal breath sounds Abdomen: normal bowel sounds, non tender, no organomegaly Extremities: normal inspection Edema: no edema noted Arm (L), no edema noted Arm (R), no edema noted Leg (L), no edema noted Leg (R), no edema noted Pedal (L), no edema noted Pedal (R), no edema noted Generalized Neurologic: responsive, motor weakness Skin: normal pigmentation, warm/dry Ion Temple DO Aug 06, 2019 09:16
--- NOTE | 2019-08-06 09:58 | Diagnostic Imaging Report ---
Indication: Abdominal pain Technique: Grayscale and duplex Doppler imaging of the abdomen performed. Comparison: None Findings: The liver is unremarkable. Doppler interrogation of the main portal vein shows patency with hepatopedal, monophasic flow. There is no biliary ductal dilatation identified. Gallbladder is unremarkable. There demonstrated part of the pancreas, aorta and IVC show no definite abnormalities. There is a nonshadowing echogenic focus in the right kidney which might be an angiomyolipoma. This is about 7 mm in size. There is no hydronephrosis. 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
[2019-08-06 12:00] VITALS: BP 135/87
--- NOTE | 2019-08-06 12:25 | NUR ---
RADIOLOGY NOTE: RIGHT UPPER EXTREMITY PICC PLACED.
--- NOTE | 2019-08-06 12:40 | Pulmonology Progress Note ---
Assessment/Plan Problems: (1) Intractable nausea and vomiting (2) Atypical pneumonia (3) Tobacco abuse (4) HIV (human immunodeficiency virus infection) (5) Drug abuse Assessment/Plan doing better today f/u by GI check sputum ( nothing available yet off abx check electrolytes med/surg All medications and treatment were reviewed. ok to dc home Subjective ROS Limited/Unobtainable: No Constitutional: Reports: no symptoms HEENT: Repors: no symptoms Respiratory: Reports: no symptoms Allergies: Coded Allergies: EGG (Verified Allergy, Intermediate, Hives, 07/30/19) SHELLFISH DERIVED (Verified Allergy, Intermediate, Shortness of Breath, ) SOB and hives Objective Last 24 Hour Vital Signs Date Time Temp Pulse Resp B/P (MAP) Pulse Ox O2 Delivery O2 Flow Rate FiO2 08/06/19 09:00 Nasal Cannula 2.0 Nasal Cannula 2.0 08/06/19 08:00 97.9 82 16 140/86 (104) 97 08/06/19 08:00 97.9 82 16 140/86 (104) 97 08/06/19 04:00 99.1 90 20 144/74 (97) 93 08/06/19 00:00 97.5 91 18 151/89 (109) 93 08/05/19 21:00 Nasal Cannula 2.0 Nasal Cannula 2.0 08/05/19 20:00 98.2 73 18 142/79 (100) 97 08/05/19 16:00 98.3 69 16 135/61 (85) 98 Intake and Output 08/05/19 08/06/19 19:00 07:00 Intake Total 800 ml Balance 800 ml IV Total 800 ml # Voids 5 Objective had nausea got a picc line General Appearance: WD/WN HEENT: normocephalic, atraumatic Respiratory/Chest: chest wall non-tender, lungs clear Cardiovascular: normal peripheral pulses, normal rate Abdomen: normal bowel sounds, soft, non tender, no organomegaly Genitourinary: normal external genitalia Extremities: no clubbing Skin: no rash Laboratory Tests 08/06/19 04:50: White Blood Count 8.9, Red Blood Count 5.35, Hemoglobin 16.1, Hematocrit 46.5, Mean Corpuscular Volume 87, Mean Corpuscular Hemoglobin 30.0, Mean Corpuscular Hemoglobin Concent 34.5, Red Cell Distribution Width 11.8, Platelet Count 314, Mean Platelet Volume 5.4L, Neutrophils (%) (Auto) 46.2, Lymphocytes (%) (Auto) 41.5, Monocytes (%) (Auto) 10.5H, Eosinophils (%) (Auto) 0.8, Basophils (%) ( Auto) 1.0, Sodium Level 141, Potassium Level 4.0, Chloride Level 106, Carbon Dioxide Level 23, Anion Gap 12, Blood Urea Nitrogen 9, Creatinine 1.1, Estimat Glomerular Filtration Rate > 60, Glucose Level 86, Calcium Level 8.5 Current Medications Medications (Trade) Dose Ordered Sig/Anthony Route PRN Reason Start Time Stop Time Status Last Admin Dose Admin Acetaminophen (Tylenol) 650 mg Q4H PRN ORAL fever (temp>100.5F) 07/29/19 18:12 08/28/19 18:11 08/06/19 10:24 Albuterol/ Ipratropium (Albuterol/ Ipratropium) 3 ml Q4H PRN HHN Shortness of Breath 08/05/19 20:30 08/10/19 20:29 Chlorhexidine Gluconate (Hellen-Hex 2%) 1 applic DAILY@2000 TOPIC 08/06/19 20:00 09/05/19 19:59 Dextrose (Dextrose 50%) 25 ml Q30M PRN IV Hypoglycemia 07/29/19 18:15 08/26/19 18:44 Dextrose (Dextrose 50%) 50 ml Q30M PRN IV Hypoglycemia 07/29/19 18:15 08/26/19 18:44 Dextrose/Sodium Chloride 1,000 ml @ 100 mls/hr Q10H IV 07/29/19 18:12 08/28/19 18:11 08/05/19 17:44 Diphenhydramine HCl (Benadryl) 25 mg Q6H PRN ORAL Itching/Pruritis 07/29/19 18:12 08/28/19 18:11 Guaifenesin/ Dextromethorphan (Robitussin DM Syrup) 15 ml Q4H PRN ORAL For Cough 07/29/19 18:12 08/28/19 18:11 08/04/19 15:04 Heparin Sodium (Porcine) (Heparin 5000 units/ml) 5,000 units EVERY 12 HOURS SUBQ 07/29/19 21:00 08/27/19 08:59 08/06/19 09:12 Morphine Sulfate (Morphine Sulfate) 2 mg Q4H PRN IVP For Pain 08/06/19 06:15 08/13/19 06:14 Ondansetron HCl (Zofran) 4 mg Q6H PRN IVP Nausea & Vomiting 07/29/19 18:13 08/28/19 18:12 08/04/19 17:36 Patient Own Medication (Patient's Own Med) 1 ea DAILY ORAL 07/30/19 16:30 08/29/19 16:29 08/06/19 09:13 Polyethylene Glycol (Miralax) 17 gm DAILYPRN PRN ORAL Constipation 07/29/19 18:13 08/28/19 18:12 Temazepam (Restoril) 15 mg HSPRN PRN ORAL Insomnia 08/06/19 09:30 08/13/19 09:29 Elle Salgado MD Aug 06, 2019 12:40
--- NOTE | 2019-08-06 12:50 | NUR ---
NURSE NOTES: RN SPOKE TO DR VELOZ REGARDING DISCHARGE ORDER. MD MADE AWARE PT IS CLEARED FOR DISCHARGE FROM ID AND GI. DR VELOZ WITH NO NEW ORDERS. RN LEFT MESSAGE FOR DR DING.
--- NOTE | 2019-08-06 13:08 | GI Progress Note ---
Assessment/Plan Problems: (1) Malnutrition ICD Codes: E46 - Unspecified protein-calorie malnutrition SNOMED: 95418051 (2) Drug abuse ICD Codes: F19.10 - Other psychoactive substance abuse, uncomplicated SNOMED: 05740021 Status: unchanged Status Narrative Discussed with Dr. Ahumada. Assessment/Plan Urine toxicity positive for phencyclidine, amphetamines and marijuana History of colonoscopy x3 years with unremarkable findings Reported emesis over the weekend without melena emesis or coffee-ground No plans for any GI procedures at this time, symptomatic treatment fu pulmonary recommendations Advance diet as tolerated Zofran as needed PPI IV p.o. hydration Follow labs dc planning The patient was seen and examined at bedside and all new and available data was reviewed in the patients chart. I agree with the above findings, impression and plan. (Patient seen earlier today. Signature stamp does not reflect patient encounter time.). - Stevie Ahumada MD Subjective Subjective still has complaint of nausea Objective Last 24 Hour Vital Signs Date Time Temp Pulse Resp B/P (MAP) Pulse Ox O2 Delivery O2 Flow Rate FiO2 08/06/19 12:00 97.4 77 19 135/87 (103) 95 08/06/19 09:00 Nasal Cannula 2.0 Nasal Cannula 2.0 08/06/19 08:00 97.9 82 16 140/86 (104) 97 08/06/19 08:00 97.9 82 16 140/86 (104) 97 08/06/19 04:00 99.1 90 20 144/74 (97) 93 08/06/19 00:00 97.5 91 18 151/89 (109) 93 08/05/19 21:00 Nasal Cannula 2.0 Nasal Cannula 2.0 08/05/19 20:00 98.2 73 18 142/79 (100) 97 08/05/19 16:00 98.3 69 16 135/61 (85) 98 Intake and Output 08/05/19 08/06/19 19:00 07:00 Intake Total 800 ml Balance 800 ml IV Total 800 ml # Voids 5 Laboratory Tests Test 08/06/19 04:50 White Blood Count 8.9 K/UL (4.8-10.8) Red Blood Count 5.35 M/UL (4.70-6.10) Hemoglobin 16.1 G/DL (14.2-18.0) Hematocrit 46.5 % (42.0-52.0) Mean Corpuscular Volume 87 FL (80-99) Mean Corpuscular Hemoglobin 30.0 PG (27.0-31.0) Mean Corpuscular Hemoglobin Concent 34.5 G/DL (32.0-36.0) Red Cell Distribution Width 11.8 % (11.6-14.8) Platelet Count 314 K/UL (150-450) Mean Platelet Volume 5.4 FL (6.5-10.1) L Neutrophils (%) (Auto) 46.2 % (45.0-75.0) Lymphocytes (%) (Auto) 41.5 % (20.0-45.0) Monocytes (%) (Auto) 10.5 % (1.0-10.0) H Eosinophils (%) (Auto) 0.8 % (0.0-3.0) Basophils (%) (Auto) 1.0 % (0.0-2.0) Sodium Level 141 MMOL/L (136-145) Potassium Level 4.0 MMOL/L (3.5-5.1) Chloride Level 106 MMOL/L (98-107) Carbon Dioxide Level 23 MMOL/L (21-32) Anion Gap 12 mmol/L (5-15) Blood Urea Nitrogen 9 mg/dL (7-18) Creatinine 1.1 MG/DL (0.55-1.30) Estimat Glomerular Filtration Rate > 60 mL/min (>60) Glucose Level 86 MG/DL (74-106) Calcium Level 8.5 MG/DL (8.5-10.1) Height (Feet): 5 Height (Inches): 9.00 Weight (Pounds): 184 General Appearance: alert Cardiovascular: normal rate, regular rhythm Respiratory/Chest: normal breath sounds Abdominal Exam: soft Michael Cadena [employer] Aug 06, 2019 13:08
--- NOTE | 2019-08-06 14:09 | NUR ---
NURSE NOTES: PER DR TOÑA RN TO NOTIFY GI AND ID. RN ADRIANNA DING AWARE PT HAS BEEN CLEARED FROM GI AND ID TODAY WELL YESTERDAY. NO NEW ORDERS RECEIVED FROM DR DING.
--- NOTE | 2019-08-06 14:20 | NUR ---
NURSE NOTES: RN SPOKE TO ED IN RADIOLOGY REGARDING ORDER TO USE PICC LINE. PER ED, HE WILL FORWARD IMAGING TO MD FOR CLEARANCE TO USE PICC LINE. RIGHT UPPER ARM PICC LINE, DOUBLE LUMEN ASYMPTOMATIC, PATENT AND INTACT. PT DENIES PAIN OF RIGHT UPPER ARM. NO SWELLING NOTED. WILL CONTINUE TO MONITOR.
[2019-08-06 16:00] VITALS: BP 142/86
--- NOTE | 2019-08-06 16:39 | Infectious Diseases Prog Note ---
Assessment/Plan Assessment/Plan Assessment/Plan: 59yo gentleman with PMH tobacco and marijuana abuse, also found to have PCP, amphetamine positive presents with one week of fever, chills , cough, sob, diarrhea. ID consulted for recommendation Tmax 100.3, SP No leukocytosis Lactate 1.6 CAP? 07/27 flu swab negative 07/27 CTPA: No evidence of pulmonary embolus, aortic dissection or aneurysm. Patchy bilateral infiltrates. Consider pneumonia. Correlate clinically. Hiatal hernia. Degenerative changes of the spine. 07/28 TTE: EF 60%, mild diastolic dysfunction 07/31 CXR: Unchanged left basilar atelectasis and possible patchy infiltrate, since 07/27/2019. Central bronchial wall thickening, likely indicating bronchitis changes 08/01 sputum cx: normal roverto 07/27 UA negative r/o bacteremia 06/26 BCx: ngtd Transaminitis US Abd: No acute findings. 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 07/31 SP cefepime, vancomycin, azithromycin #5 SP Ceftriaxone 07/27 f/u bcx trend temp, CBC f/u hepatitis panel Thank you for this consult. [facility] will continue to follow the patient with you. Subjective Allergies: Coded Allergies: EGG (Verified Allergy, Intermediate, Hives, 07/30/19) SHELLFISH DERIVED (Verified Allergy, Intermediate, Shortness of Breath, ) SOB and hives Subjective Afebrile. 2L LUE pain tolerated diet today Objective Vital Signs Last 24 Hour Vital Signs Date Time Temp Pulse Resp B/P (MAP) Pulse Ox O2 Delivery O2 Flow Rate FiO2 08/06/19 12:00 97.4 77 19 135/87 (103) 95 08/06/19 09:00 Nasal Cannula 2.0 Nasal Cannula 2.0 08/06/19 08:00 97.9 82 16 140/86 (104) 97 08/06/19 08:00 97.9 82 16 140/86 (104) 97 08/06/19 04:00 99.1 90 20 144/74 (97) 93 08/06/19 00:00 97.5 91 18 151/89 (109) 93 08/05/19 21:00 Nasal Cannula 2.0 Nasal Cannula 2.0 08/05/19 20:00 98.2 73 18 142/79 (100) 97 Height (Feet): 5 Height (Inches): 9.00 Weight (Pounds): 184 Objective VS: afebrile. RA. Gen: NAD HEENT: anicteric sclera CV: RRR Resp: coarse crackles diffusely Abd: soft. no TTP. slightly distended. Ext: no LE edema Laboratory Tests Test 08/06/19 04:50 White Blood Count 8.9 K/UL (4.8-10.8) Red Blood Count 5.35 M/UL (4.70-6.10) Hemoglobin 16.1 G/DL (14.2-18.0) Hematocrit 46.5 % (42.0-52.0) Mean Corpuscular Volume 87 FL (80-99) Mean Corpuscular Hemoglobin 30.0 PG (27.0-31.0) Mean Corpuscular Hemoglobin Concent 34.5 G/DL (32.0-36.0) Red Cell Distribution Width 11.8 % (11.6-14.8) Platelet Count 314 K/UL (150-450) Mean Platelet Volume 5.4 FL (6.5-10.1) L Neutrophils (%) (Auto) 46.2 % (45.0-75.0) Lymphocytes (%) (Auto) 41.5 % (20.0-45.0) Monocytes (%) (Auto) 10.5 % (1.0-10.0) H Eosinophils (%) (Auto) 0.8 % (0.0-3.0) Basophils (%) (Auto) 1.0 % (0.0-2.0) Sodium Level 141 MMOL/L (136-145) Potassium Level 4.0 MMOL/L (3.5-5.1) Chloride Level 106 MMOL/L (98-107) Carbon Dioxide Level 23 MMOL/L (21-32) Anion Gap 12 mmol/L (5-15) Blood Urea Nitrogen 9 mg/dL (7-18) Creatinine 1.1 MG/DL (0.55-1.30) Estimat Glomerular Filtration Rate > 60 mL/min (>60) Glucose Level 86 MG/DL (74-106) Calcium Level 8.5 MG/DL (8.5-10.1) Current Medications Medications (Trade) Dose Ordered Sig/Anthony Route PRN Reason Start Time Stop Time Status Last Admin Dose Admin Acetaminophen (Tylenol) 650 mg Q4H PRN ORAL fever (temp>100.5F) 07/29/19 18:12 08/28/19 18:11 08/06/19 15:53 Albuterol/ Ipratropium (Albuterol/ Ipratropium) 3 ml Q4H PRN HHN Shortness of Breath 08/05/19 20:30 08/10/19 20:29 Chlorhexidine Gluconate (Hellen-Hex 2%) 1 applic DAILY@2000 TOPIC 08/06/19 20:00 09/05/19 19:59 Dextrose (Dextrose 50%) 25 ml Q30M PRN IV Hypoglycemia 07/29/19 18:15 08/26/19 18:44 Dextrose (Dextrose 50%) 50 ml Q30M PRN IV Hypoglycemia 07/29/19 18:15 08/26/19 18:44 Dextrose/Sodium Chloride 1,000 ml @ 100 mls/hr Q10H IV 07/29/19 18:12 08/28/19 18:11 08/05/19 17:44 Diphenhydramine HCl (Benadryl) 25 mg Q6H PRN ORAL Itching/Pruritis 07/29/19 18:12 08/28/19 18:11 Guaifenesin/ Dextromethorphan (Robitussin DM Syrup) 15 ml Q4H PRN ORAL For Cough 07/29/19 18:12 08/28/19 18:11 08/04/19 15:04 Heparin Sodium (Porcine) (Heparin 5000 units/ml) 5,000 units EVERY 12 HOURS SUBQ 07/29/19 21:00 08/27/19 08:59 08/06/19 09:12 Morphine Sulfate (Morphine Sulfate) 2 mg Q4H PRN IVP For Pain 08/06/19 06:15 08/13/19 06:14 Ondansetron HCl (Zofran) 4 mg Q6H PRN IVP Nausea & Vomiting 07/29/19 18:13 08/28/19 18:12 08/04/19 17:36 Patient Own Medication (Patient's Own Med) 1 ea DAILY ORAL 08/08/19 09:00 09/07/19 08:59 Patient Own Medication (Patient's Own Med) 1 ea DAILY ORAL 07/30/19 16:30 08/07/19 23:59 08/06/19 09:13 Polyethylene Glycol (Miralax) 17 gm DAILYPRN PRN ORAL Constipation 07/29/19 18:13 08/28/19 18:12 Temazepam (Restoril) 15 mg HSPRN PRN ORAL Insomnia 08/06/19 09:30 08/13/19 09:29 Olman Torres MD Aug 06, 2019 16:39
--- NOTE | 2019-08-06 17:09 | Diagnostic Imaging Report ---
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 The right upper extremity was prepped with alcohol. All elements of maximal sterile barrier technique were followed including usage of a cap, mask, sterile gown, sterile gloves, hand hygiene and a large sterile sheet. Sonographic evaluation of the upper extremity was performed demonstrating a patent and compressible basilic vein. Access was obtained under real-time ultrasound guidance (with utilization of sterile gel and sterile probe cover) and digital image was saved and archived. An .018 wire was introduced. Needle exchanged for a 5 Turkish peel-away sheath. Measurements were obtained. A 5 Turkish dual-lumen Power PICC line catheter was cut to 40 cm and introduced over the wire. Peel-away sheath and wire were removed.Catheter was secured to the skin using 2-0 Prolene suture. Both ports aspirate and flush easily. A single fluoroscopic image shows the distal tip in the superior vena cava. Total fluoroscopic time was 10 seconds. Impression: Successful placement of an upper extremity PICC line catheter
[2019-08-06 20:00] VITALS: BP 148/83
--- NOTE | 2019-08-06 20:09 | NUR ---
HAND-OFF: Report given to Viv RIOS RN.
--- NOTE | 2019-08-06 20:10 | NUR ---
NURSE NOTES: Received report from DEBORAH Hester. Pt resting in bed. AAO x 4, NC 2L/min. Sons, family and friends at bedside. Pt has pain on L arm, where IV infiltrated, PICC line in right upper arm, double lumen, dressing intact. Ice pack applied on L arm. Bed locked, lowest position, alarm on, side rails up x 2, call light within reach. Will continue to monitor.
[2019-08-06] MEDS: Dyna-Hex 2% Top Sol 2oz TOPIC SCH (20:48)
[2019-08-07] VITALS (8 sets, daily range): BP systolic 145–190; BP diastolic 70–96
[2019-08-07] MEDS: D5NS 1,000 ML IV SCH (04:21)
[2019-08-07 07:26] LABS: BASOPHILS % (AUTO) 1.8 % (0.0-2.0); EOSINOPHILS % (AUTO) 0.5 % (0.0-3.0); HEMATOCRIT 38.7 % (42.0-52.0); HEMOGLOBIN 12.9 G/DL (14.2-18.0); LYMPHOCYTES % (AUTO) 42.9 % (20.0-45.0); MEAN CORPUSCULAR VOLUME 91 FL (80-99); MONOCYTES % (AUTO) 13.6 % (1.0-10.0); NEUTROPHILS % (AUTO) 41.3 % (45.0-75.0); PLATELET COUNT 229 K/UL (150-450); RED BLOOD COUNT 4.27 M/UL (4.70-6.10); RED CELL DISTRIBUTION WIDTH 12.2 % (11.6-14.8); WHITE BLOOD COUNT 6.9 K/UL (4.8-10.8)
[2019-08-07 07:44] LABS: ANION GAP 7 mmol/L (5-15); BLOOD UREA NITROGEN 9 mg/dL (7-18); CALCIUM 6.9 MG/DL (8.5-10.1); CARBON DIOXIDE 26 MMOL/L (21-32); CHLORIDE 106 MMOL/L (98-107); CREATININE 1.1 MG/DL (0.55-1.30); POTASSIUM 2.9 MMOL/L (3.5-5.1); SODIUM 139 MMOL/L (136-145)
--- NOTE | 2019-08-07 07:52 | NUR ---
HAND-OFF: Report given to DEBORAH Perla.
--- NOTE | 2019-08-07 08:27 | NUR ---
pt resting in bed. Denies pain, no SOB noted, VS stable, pts BS 552, left message to Dr Temple, waiting for call back, no S/S per pt. PICC line LUE, dressing CDI. fall precaution maintained. will continue to monitor.
[2019-08-07] MEDS: BIKTARVY ORAL SCH (09:00)
[2019-08-07] MEDS: Heparin 5000 units/ml inj SUBQ SCH ×2 (10:04→20:20)
--- NOTE | 2019-08-07 13:20 | GI Progress Note ---
Assessment/Plan Problems: (1) Malnutrition ICD Codes: E46 - Unspecified protein-calorie malnutrition SNOMED: 40836317 (2) Drug abuse ICD Codes: F19.10 - Other psychoactive substance abuse, uncomplicated SNOMED: 77098145 Status: stable Status Narrative Discussed with Dr. Ahumada. Assessment/Plan Urine toxicity positive for phencyclidine, amphetamines and marijuana History of colonoscopy x3 years with unremarkable findings Reported emesis over the weekend without melena emesis or coffee-ground No plans for any GI procedures at this time, symptomatic treatment fu pulmonary recommendations Advance diet as tolerated Zofran as needed PPI IV p.o. hydration Follow labs dc planning The patient was seen and examined at bedside and all new and available data was reviewed in the patients chart. I agree with the above findings, impression and plan. (Patient seen earlier today. Signature stamp does not reflect patient encounter time.). - Stevie Ahumada MD Subjective Subjective no c/o of N/V x2 days report no BM for 2 days Objective Last 24 Hour Vital Signs Date Time Temp Pulse Resp B/P (MAP) Pulse Ox O2 Delivery O2 Flow Rate FiO2 08/07/19 12:00 98.4 74 18 190/96 (127) 99 08/07/19 09:11 83 16 97 Nasal Cannula 2.0 28 08/07/19 09:11 97 Nasal Cannula 2.0 28 08/07/19 09:00 Nasal Cannula 2.0 Nasal Cannula 2.0 08/07/19 08:00 98.2 81 20 155/80 (105) 99 08/07/19 04:00 98.2 75 19 160/70 (100) 99 08/07/19 01:01 99.0 08/07/19 00:41 99.0 84 18 157/80 (105) 96 08/07/19 00:00 99.0 84 18 157/84 (108) 96 08/06/19 21:48 83 16 94 Nasal Cannula 2.0 28 08/06/19 21:48 94 Nasal Cannula 2.0 28 08/06/19 21:00 Nasal Cannula 2.0 Nasal Cannula 2.0 08/06/19 20:00 98.2 79 18 148/83 (104) 98 08/06/19 16:00 99.9 98 17 142/86 (104) 98 Intake and Output 08/06/19 08/07/19 19:00 07:00 Intake Total 900 ml Output Total 900 ml Balance 0 ml Other 900 ml Output Urine Total 900 ml Laboratory Tests Test 08/07/19 06:30 White Blood Count 6.9 K/UL (4.8-10.8) Red Blood Count 4.27 M/UL (4.70-6.10) L Hemoglobin 12.9 G/DL (14.2-18.0) L Hematocrit 38.7 % (42.0-52.0) L Mean Corpuscular Volume 91 FL (80-99) Mean Corpuscular Hemoglobin 30.2 PG (27.0-31.0) Mean Corpuscular Hemoglobin Concent 33.3 G/DL (32.0-36.0) Red Cell Distribution Width 12.2 % (11.6-14.8) Platelet Count 229 K/UL (150-450) Mean Platelet Volume 5.7 FL (6.5-10.1) L Neutrophils (%) (Auto) 41.3 % (45.0-75.0) L Lymphocytes (%) (Auto) 42.9 % (20.0-45.0) Monocytes (%) (Auto) 13.6 % (1.0-10.0) H Eosinophils (%) (Auto) 0.5 % (0.0-3.0) Basophils (%) (Auto) 1.8 % (0.0-2.0) Sodium Level 139 MMOL/L (136-145) Potassium Level 2.9 MMOL/L (3.5-5.1) L Chloride Level 106 MMOL/L (98-107) Carbon Dioxide Level 26 MMOL/L (21-32) Anion Gap 7 mmol/L (5-15) Blood Urea Nitrogen 9 mg/dL (7-18) Creatinine 1.1 MG/DL (0.55-1.30) Estimat Glomerular Filtration Rate > 60 mL/min (>60) Glucose Level 552 MG/DL (74-106) #*H Calcium Level 6.9 MG/DL (8.5-10.1) L Height (Feet): 5 Height (Inches): 9.00 Weight (Pounds): 184 General Appearance: WD/WN, no apparent distress, alert Cardiovascular: normal rate Respiratory/Chest: normal breath sounds, no respiratory distress Abdominal Exam: normal bowel sounds, non tender, soft Extremities: normal range of motion, non-tender Michael Cadena NP Aug 07, 2019 13:20
--- NOTE | 2019-08-07 14:08 | General Progress Note ---
Assessment/Plan Problem List: (1) HIV (human immunodeficiency virus infection) ICD Codes: B20 - Human immunodeficiency virus [HIV] disease SNOMED: 59306339 (2) Malnutrition ICD Codes: E46 - Unspecified protein-calorie malnutrition SNOMED: 07238636 (3) Sepsis ICD Codes: A41.9 - Sepsis, unspecified organism SNOMED: 63882217 (4) Atypical pneumonia ICD Codes: J18.9 - Pneumonia, unspecified organism SNOMED: 276919648 (5) Drug abuse ICD Codes: F19.10 - Other psychoactive substance abuse, uncomplicated SNOMED: 64503842 Status: stable Assessment/Plan: o2 pulm tx abx pt diet dc w hh if clear Subjective Constitutional: Reports: weakness Allergies: Coded Allergies: EGG (Verified Allergy, Intermediate, Hives, 07/30/19) SHELLFISH DERIVED (Verified Allergy, Intermediate, Shortness of Breath, ) SOB and hives All Systems: reviewed and negative except above Subjective o2 nc calm Objective Last 24 Hour Vital Signs Date Time Temp Pulse Resp B/P (MAP) Pulse Ox O2 Delivery O2 Flow Rate FiO2 08/07/19 13:55 18 154/84 (107) 99 08/07/19 13:55 154/84 08/07/19 12:00 98.4 74 18 190/96 (127) 99 08/07/19 09:11 83 16 97 Nasal Cannula 2.0 28 08/07/19 09:11 97 Nasal Cannula 2.0 28 08/07/19 09:00 Nasal Cannula 2.0 Nasal Cannula 2.0 08/07/19 08:00 98.2 81 20 155/80 (105) 99 08/07/19 04:00 98.2 75 19 160/70 (100) 99 08/07/19 01:01 99.0 08/07/19 00:41 99.0 84 18 157/80 (105) 96 08/07/19 00:00 99.0 84 18 157/84 (108) 96 08/06/19 21:48 83 16 94 Nasal Cannula 2.0 28 08/06/19 21:48 94 Nasal Cannula 2.0 28 08/06/19 21:00 Nasal Cannula 2.0 Nasal Cannula 2.0 08/06/19 20:00 98.2 79 18 148/83 (104) 98 08/06/19 16:00 99.9 98 17 142/86 (104) 98 Intake and Output 08/06/19 08/07/19 19:00 07:00 Intake Total 900 ml Output Total 900 ml Balance 0 ml Other 900 ml Output Urine Total 900 ml Laboratory Tests 08/07/19 06:30: White Blood Count 6.9, Red Blood Count 4.27L, Hemoglobin 12.9L, Hematocrit 38.7L , Mean Corpuscular Volume 91, Mean Corpuscular Hemoglobin 30.2, Mean Corpuscular Hemoglobin Concent 33.3, Red Cell Distribution Width 12.2, Platelet Count 229, Mean Platelet Volume 5.7L, Neutrophils (%) (Auto) 41.3L, Lymphocytes (%) (Auto) 42.9, Monocytes (%) (Auto) 13.6H, Eosinophils (%) (Auto) 0.5, Basophils (%) (Auto) 1.8, Sodium Level 139, Potassium Level 2.9L, Chloride Level 106, Carbon Dioxide Level 26, Anion Gap 7, Blood Urea Nitrogen 9, Creatinine 1.1, Estimat Glomerular Filtration Rate > 60, Glucose Level 552#*H, Calcium Level 6.9L Height (Feet): 5 Height (Inches): 9.00 Weight (Pounds): 184 General Appearance: lethargic EENT: normal ENT inspection Neck: normal alignment Cardiovascular: normal peripheral pulses, normal rate, regular rhythm Respiratory/Chest: chest wall non-tender, lungs clear, normal breath sounds, respiratory distress Abdomen: normal bowel sounds, non tender, soft Extremities: normal inspection Edema: no edema noted Arm (L), no edema noted Arm (R), no edema noted Leg (L), no edema noted Leg (R), no edema noted Pedal (L), no edema noted Pedal (R), no edema noted Generalized Neurologic: motor weakness Skin: normal pigmentation, warm/dry Ion Temple DO Aug 07, 2019 14:07
--- NOTE | 2019-08-07 15:29 | NUR ---
*-* INSURANCE *-* ALL CLINICALS AND REVIEWS HAVE BEEN FAXED TO: [employer] [employer] Ref#[id number] CM: Mykel #[phone] ext [phone]
--- NOTE | 2019-08-07 15:35 | Pulmonology Progress Note ---
Assessment/Plan Problems: (1) Superficial phlebitis of arm (2) Intractable nausea and vomiting (3) Atypical pneumonia (4) Tobacco abuse (5) HIV (human immunodeficiency virus infection) (6) Drug abuse Assessment/Plan sympotmatic treatment f/u by GI check sputum ( nothing available yet off abx check electrolytes med/surg All medications and treatment were reviewed. Subjective ROS Limited/Unobtainable: No Allergies: Coded Allergies: EGG (Verified Allergy, Intermediate, Hives, 07/30/19) SHELLFISH DERIVED (Verified Allergy, Intermediate, Shortness of Breath, ) SOB and hives Objective Last 24 Hour Vital Signs Date Time Temp Pulse Resp B/P (MAP) Pulse Ox O2 Delivery O2 Flow Rate FiO2 08/07/19 14:19 98.4 08/07/19 13:55 18 154/84 (107) 99 08/07/19 13:55 154/84 08/07/19 12:00 98.4 74 18 190/96 (127) 99 08/07/19 09:11 83 16 97 Nasal Cannula 2.0 28 08/07/19 09:11 97 Nasal Cannula 2.0 28 08/07/19 09:00 Nasal Cannula 2.0 Nasal Cannula 2.0 08/07/19 08:00 98.2 81 20 155/80 (105) 99 08/07/19 04:00 98.2 75 19 160/70 (100) 99 08/07/19 01:01 99.0 08/07/19 00:41 99.0 84 18 157/80 (105) 96 08/07/19 00:00 99.0 84 18 157/84 (108) 96 08/06/19 21:48 83 16 94 Nasal Cannula 2.0 28 08/06/19 21:48 94 Nasal Cannula 2.0 28 08/06/19 21:00 Nasal Cannula 2.0 Nasal Cannula 2.0 08/06/19 20:00 98.2 79 18 148/83 (104) 98 08/06/19 16:00 99.9 98 17 142/86 (104) 98 Intake and Output 08/06/19 08/07/19 19:00 07:00 Intake Total 900 ml Output Total 900 ml Balance 0 ml Other 900 ml Output Urine Total 900 ml Objective c/o left arm pain General Appearance: WD/WN, no acute distress HEENT: normocephalic, anicteric Respiratory/Chest: chest wall non-tender, lungs clear Cardiovascular: normal peripheral pulses, normal rate, no JVD Abdomen: soft, non tender Genitourinary: normal external genitalia Skin: no lesions Laboratory Tests 08/07/19 06:30: White Blood Count 6.9, Red Blood Count 4.27L, Hemoglobin 12.9L, Hematocrit 38.7L , Mean Corpuscular Volume 91, Mean Corpuscular Hemoglobin 30.2, Mean Corpuscular Hemoglobin Concent 33.3, Red Cell Distribution Width 12.2, Platelet Count 229, Mean Platelet Volume 5.7L, Neutrophils (%) (Auto) 41.3L, Lymphocytes (%) (Auto) 42.9, Monocytes (%) (Auto) 13.6H, Eosinophils (%) (Auto) 0.5, Basophils (%) (Auto) 1.8, Sodium Level 139, Potassium Level 2.9L, Chloride Level 106, Carbon Dioxide Level 26, Anion Gap 7, Blood Urea Nitrogen 9, Creatinine 1.1, Estimat Glomerular Filtration Rate > 60, Glucose Level 552#*H, Calcium Level 6.9L Current Medications Medications (Trade) Dose Ordered Sig/Anthony Route PRN Reason Start Time Stop Time Status Last Admin Dose Admin Acetaminophen (Tylenol) 650 mg Q4H PRN ORAL PAIN/FEVER (T>100.5) 08/07/19 14:12 08/28/19 18:11 08/07/19 13:49 Albuterol/ Ipratropium (Albuterol/ Ipratropium) 3 ml Q4H PRN HHN Shortness of Breath 08/05/19 20:30 08/10/19 20:29 Chlorhexidine Gluconate (Hellen-Hex 2%) 1 applic DAILY@1999 TOPIC 08/06/19 20:00 09/05/19 19:59 08/06/19 20:48 Clonidine HCl (Catapres Tab) 0.1 mg EVERY 6 HOURS ORAL 08/07/19 13:00 09/06/19 12:59 08/07/19 13:55 Dextrose (Dextrose 50%) 25 ml Q30M PRN IV Hypoglycemia 07/29/19 18:15 08/26/19 18:44 Dextrose (Dextrose 50%) 50 ml Q30M PRN IV Hypoglycemia 07/29/19 18:15 08/26/19 18:44 Diphenhydramine HCl (Benadryl) 25 mg Q6H PRN ORAL Itching/Pruritis 07/29/19 18:12 08/28/19 18:11 Guaifenesin/ Dextromethorphan (Robitussin DM Syrup) 15 ml Q4H PRN ORAL For Cough 07/29/19 18:12 08/28/19 18:11 08/04/19 15:04 Heparin Sodium (Porcine) (Heparin 5000 units/ml) 5,000 units EVERY 12 HOURS SUBQ 07/29/19 21:00 08/27/19 08:59 08/07/19 10:04 Morphine Sulfate (Morphine Sulfate) 2 mg Q4H PRN IVP For Pain 08/06/19 06:15 08/13/19 06:14 08/06/19 17:59 Ondansetron HCl (Zofran) 4 mg Q6H PRN IVP Nausea & Vomiting 07/29/19 18:13 08/28/19 18:12 08/06/19 17:58 Patient Own Medication (Patient's Own Med) 1 ea DAILY ORAL 08/08/19 09:00 09/07/19 08:59 Patient Own Medication (Patient's Own Med) 1 ea DAILY ORAL 07/30/19 16:30 08/07/19 23:59 08/07/19 09:00 Polyethylene Glycol (Miralax) 17 gm DAILYPRN PRN ORAL Constipation 07/29/19 18:13 08/28/19 18:12 Potassium Chloride (K-Dur) 40 meq ONCE ORAL 08/07/19 15:00 08/07/19 17:00 08/07/19 15:22 Sodium Chloride 1,000 ml @ 60 mls/hr [id number] IV 08/07/19 10:30 09/06/19 10:29 08/07/19 10:41 Temazepam (Restoril) 15 mg HSPRN PRN ORAL Insomnia 08/06/19 09:30 08/13/19 09:29 08/06/19 20:48 Elle Salgado MD Aug 07, 2019 15:35
--- NOTE | 2019-08-07 18:35 | Infectious Diseases Prog Note ---
Assessment/Plan Assessment/Plan Assessment/Plan: 59yo gentleman with PMH tobacco and marijuana abuse, also found to have PCP, amphetamine positive presents with one week of fever, chills , cough, sob, diarrhea. ID consulted for recommendation Tmax 100.3, SP No leukocytosis Lactate 1.6 CAP? 07/27 flu swab negative 07/27 CTPA: No evidence of pulmonary embolus, aortic dissection or aneurysm. Patchy bilateral infiltrates. Consider pneumonia. Correlate clinically. Hiatal hernia. Degenerative changes of the spine. 07/28 TTE: EF 60%, mild diastolic dysfunction 07/31 CXR: Unchanged left basilar atelectasis and possible patchy infiltrate, since 07/27/2019. Central bronchial wall thickening, likely indicating bronchitis changes 08/01 sputum cx: normal roverto 07/27 UA negative r/o bacteremia 06/26 BCx: ngtd Transaminitis US Abd: No acute findings. 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 elevate. 07/31 SP cefepime, vancomycin, azithromycin #5 SP Ceftriaxone 07/27 f/u bcx trend temp, CBC f/u hepatitis panel Thank you for this consult. [facility] will continue to follow the patient with you. Subjective Allergies: Coded Allergies: EGG (Verified Allergy, Intermediate, Hives, 07/30/19) SHELLFISH DERIVED (Verified Allergy, Intermediate, Shortness of Breath, ) SOB and hives Subjective Afebrile. 2L tolerated dinner cough and sob better Objective Vital Signs Last 24 Hour Vital Signs Date Time Temp Pulse Resp B/P (MAP) Pulse Ox O2 Delivery O2 Flow Rate FiO2 08/07/19 17:08 154/77 08/07/19 15:50 98.6 65 18 154/77 (102) 99 08/07/19 14:19 98.4 08/07/19 13:55 18 154/84 (107) 99 08/07/19 13:55 154/84 08/07/19 12:00 98.4 74 18 190/96 (127) 99 08/07/19 09:11 83 16 97 Nasal Cannula 2.0 28 08/07/19 09:11 97 Nasal Cannula 2.0 28 08/07/19 09:00 Nasal Cannula 2.0 Nasal Cannula 2.0 08/07/19 08:00 98.2 81 20 155/80 (105) 99 08/07/19 04:00 98.2 75 19 160/70 (100) 99 08/07/19 01:01 99.0 08/07/19 00:41 99.0 84 18 157/80 (105) 96 08/07/19 00:00 99.0 84 18 157/84 (108) 96 08/06/19 21:48 83 16 94 Nasal Cannula 2.0 28 08/06/19 21:48 94 Nasal Cannula 2.0 28 08/06/19 21:00 Nasal Cannula 2.0 Nasal Cannula 2.0 08/06/19 20:00 98.2 79 18 148/83 (104) 98 Height (Feet): 5 Height (Inches): 9.00 Weight (Pounds): 184 Objective VS: afebrile. RA. Gen: NAD HEENT: anicteric sclera CV: RRR Resp: coarse crackles diffusely Abd: soft. no TTP. slightly distended. Ext: no LE edema Laboratory Tests Test 08/07/19 06:30 White Blood Count 6.9 K/UL (4.8-10.8) Red Blood Count 4.27 M/UL (4.70-6.10) L Hemoglobin 12.9 G/DL (14.2-18.0) L Hematocrit 38.7 % (42.0-52.0) L Mean Corpuscular Volume 91 FL (80-99) Mean Corpuscular Hemoglobin 30.2 PG (27.0-31.0) Mean Corpuscular Hemoglobin Concent 33.3 G/DL (32.0-36.0) Red Cell Distribution Width 12.2 % (11.6-14.8) Platelet Count 229 K/UL (150-450) Mean Platelet Volume 5.7 FL (6.5-10.1) L Neutrophils (%) (Auto) 41.3 % (45.0-75.0) L Lymphocytes (%) (Auto) 42.9 % (20.0-45.0) Monocytes (%) (Auto) 13.6 % (1.0-10.0) H Eosinophils (%) (Auto) 0.5 % (0.0-3.0) Basophils (%) (Auto) 1.8 % (0.0-2.0) Sodium Level 139 MMOL/L (136-145) Potassium Level 2.9 MMOL/L (3.5-5.1) L Chloride Level 106 MMOL/L (98-107) Carbon Dioxide Level 26 MMOL/L (21-32) Anion Gap 7 mmol/L (5-15) Blood Urea Nitrogen 9 mg/dL (7-18) Creatinine 1.1 MG/DL (0.55-1.30) Estimat Glomerular Filtration Rate > 60 mL/min (>60) Glucose Level 552 MG/DL (74-106) #*H Calcium Level 6.9 MG/DL (8.5-10.1) L Current Medications Medications (Trade) Dose Ordered Sig/Anthony Route PRN Reason Start Time Stop Time Status Last Admin Dose Admin Acetaminophen (Tylenol) 650 mg Q4H PRN ORAL PAIN/FEVER (T>100.5) 08/07/19 14:12 08/28/19 18:11 08/07/19 13:49 Albuterol/ Ipratropium (Albuterol/ Ipratropium) 3 ml Q4H PRN HHN Shortness of Breath 08/05/19 20:30 08/10/19 20:29 Chlorhexidine Gluconate (Hellen-Hex 2%) 1 applic DAILY@1999 TOPIC 08/06/19 20:00 09/05/19 19:59 08/06/19 20:48 Clonidine HCl (Catapres Tab) 0.1 mg EVERY 6 HOURS ORAL 08/07/19 13:00 09/06/19 12:59 08/07/19 13:55 Dextrose (Dextrose 50%) 25 ml Q30M PRN IV Hypoglycemia 07/29/19 18:15 08/26/19 18:44 Dextrose (Dextrose 50%) 50 ml Q30M PRN IV Hypoglycemia 07/29/19 18:15 08/26/19 18:44 Diphenhydramine HCl (Benadryl) 25 mg Q6H PRN ORAL Itching/Pruritis 07/29/19 18:12 08/28/19 18:11 Guaifenesin/ Dextromethorphan (Robitussin DM Syrup) 15 ml Q4H PRN ORAL For Cough 07/29/19 18:12 08/28/19 18:11 08/04/19 15:04 Heparin Sodium (Porcine) (Heparin 5000 units/ml) 5,000 units EVERY 12 HOURS SUBQ 07/29/19 21:00 08/27/19 08:59 08/07/19 10:04 Morphine Sulfate (Morphine Sulfate) 2 mg Q4H PRN IVP For Pain 08/06/19 06:15 08/13/19 06:14 08/06/19 17:59 Ondansetron HCl (Zofran) 4 mg Q6H PRN IVP Nausea & Vomiting 07/29/19 18:13 08/28/19 18:12 08/06/19 17:58 Patient Own Medication (Patient's Own Med) 1 ea DAILY ORAL 08/08/19 09:00 09/07/19 08:59 Patient Own Medication (Patient's Own Med) 1 ea DAILY ORAL 07/30/19 16:30 08/07/19 23:59 08/07/19 09:00 Polyethylene Glycol (Miralax) 17 gm DAILYPRN PRN ORAL Constipation 07/29/19 18:13 08/28/19 18:12 Sodium Chloride 1,000 ml @ 60 mls/hr [id number] IV 08/07/19 10:30 09/06/19 10:29 08/07/19 10:41 Temazepam (Restoril) 15 mg HSPRN PRN ORAL Insomnia 08/06/19 09:30 08/13/19 09:29 08/06/19 20:48 Olman Torres MD Aug 07, 2019 18:35
--- NOTE | 2019-08-07 19:40 | Hematology/Onc Progress Note ---
Assessment/Plan Assessment/Plan # Elevated D-dimer on admission with lower ext swelling --> obtain a duplex lower ext and it was neg --> CTA of the pulm system reviewed and neg for pe --> can be related to inflammatory process # Failure to thrive, with a prior hx colonoscopy x3 years with unremarkable findings --> daily weight and calorie counts --> review current diet, nutrition recs # Drug abuse - Urine toxicity positive for phencyclidine, amphetamines and marijuana --> cessation recommended # Transaminitis # HIV # Tabacco use DW RN and appreciate consultation. Subjective HEENT: Denies: no symptoms, eye pain, blurred vision, tearing, double vision, ear pain, ear discharge, nose pain, nose congestion, throat pain, throat swelling, mouth pain, mouth swelling, other Cardiovascular: Denies: no symptoms, chest pain, edema, irregular heart rate, lightheadedness, palpitations, syncope, other Respiratory: Denies: no symptoms, cough, shortness of breath, SOB with excertion, SOB at rest, sputum, wheezing, other Gastrointestinal/Abdominal: Denies: no symptoms, abdomen distended, abdominal pain, black stools, tarry stools, blood in stool, constipated, diarrhea, difficulty swallowing, nausea, poor appetite, poor fluid intake, rectal bleeding , vomiting, other Genitourinary: Denies: no symptoms, burning, discharge, frequency, flank pain, hematuria, incontinence, pain, urgency, other Neurologic/Psychiatric: Denies: no symptoms, anxiety, depressed, emotional problems, headache, numbness, paresthesia, pre-existing deficit, seizure, tingling, tremors, weakness, other Endocrine: Denies: no symptoms, excessive sweating, flushing, intolerance to cold, intolerance to heat, increased hunger, increased thirst, increased urine, unexplained weight gain, unexplained weight loss, other Hematologic/Lymphatic: Denies: no symptoms, anemia, easy bleeding, easy bruising, adenopathy, other Allergies: Coded Allergies: EGG (Verified Allergy, Intermediate, Hives, 07/30/19) SHELLFISH DERIVED (Verified Allergy, Intermediate, Shortness of Breath, ) SOB and hives Subjective 08/07: no events, labs noted, seen by gi, pulm Objective Objective Current Medications Medications (Trade) Dose Ordered Sig/Anthony Route PRN Reason Start Time Stop Time Status Last Admin Dose Admin Acetaminophen (Tylenol) 650 mg Q4H PRN ORAL PAIN/FEVER (T>100.5) 08/07/19 14:12 08/28/19 18:11 08/07/19 13:49 Albuterol/ Ipratropium (Albuterol/ Ipratropium) 3 ml Q4H PRN HHN Shortness of Breath 08/05/19 20:30 08/10/19 20:29 Cephalexin (Keflex) 500 mg QID ORAL 08/07/19 21:00 08/14/19 20:59 Chlorhexidine Gluconate (Hellen-Hex 2%) 1 applic DAILY@1999 TOPIC 08/06/19 20:00 09/05/19 19:59 08/06/19 20:48 Clonidine HCl (Catapres Tab) 0.1 mg EVERY 6 HOURS ORAL 08/07/19 13:00 09/06/19 12:59 08/07/19 13:55 Dextrose (Dextrose 50%) 25 ml Q30M PRN IV Hypoglycemia 07/29/19 18:15 08/26/19 18:44 Dextrose (Dextrose 50%) 50 ml Q30M PRN IV Hypoglycemia 07/29/19 18:15 08/26/19 18:44 Diphenhydramine HCl (Benadryl) 25 mg Q6H PRN ORAL Itching/Pruritis 07/29/19 18:12 08/28/19 18:11 Guaifenesin/ Dextromethorphan (Robitussin DM Syrup) 15 ml Q4H PRN ORAL For Cough 07/29/19 18:12 08/28/19 18:11 08/04/19 15:04 Heparin Sodium (Porcine) (Heparin 5000 units/ml) 5,000 units EVERY 12 HOURS SUBQ 07/29/19 21:00 08/27/19 08:59 08/07/19 10:04 Morphine Sulfate (Morphine Sulfate) 2 mg Q4H PRN IVP For Pain 08/06/19 06:15 08/13/19 06:14 08/06/19 17:59 Ondansetron HCl (Zofran) 4 mg Q6H PRN IVP Nausea & Vomiting 07/29/19 18:13 08/28/19 18:12 08/06/19 17:58 Patient Own Medication (Patient's Own Med) 1 ea DAILY ORAL 08/08/19 09:00 09/07/19 08:59 Patient Own Medication (Patient's Own Med) 1 ea DAILY ORAL 07/30/19 16:30 08/07/19 23:59 08/07/19 09:00 Polyethylene Glycol (Miralax) 17 gm DAILYPRN PRN ORAL Constipation 07/29/19 18:13 08/28/19 18:12 Sodium Chloride 1,000 ml @ 60 mls/hr [id number] IV 08/07/19 10:30 09/06/19 10:29 08/07/19 10:41 Temazepam (Restoril) 15 mg HSPRN PRN ORAL Insomnia 08/06/19 09:30 08/13/19 09:29 08/06/19 20:48 Last 24 Hour Vital Signs Date Time Temp Pulse Resp B/P (MAP) Pulse Ox O2 Delivery O2 Flow Rate FiO2 08/07/19 17:08 154/77 08/07/19 15:50 98.6 65 18 154/77 (102) 99 08/07/19 14:19 98.4 08/07/19 13:55 18 154/84 (107) 99 08/07/19 13:55 154/84 08/07/19 12:00 98.4 74 18 190/96 (127) 99 08/07/19 09:11 83 16 97 Nasal Cannula 2.0 28 08/07/19 09:11 97 Nasal Cannula 2.0 28 08/07/19 09:00 Nasal Cannula 2.0 Nasal Cannula 2.0 08/07/19 08:00 98.2 81 20 155/80 (105) 99 08/07/19 04:00 98.2 75 19 160/70 (100) 99 08/07/19 01:01 99.0 08/07/19 00:41 99.0 84 18 157/80 (105) 96 08/07/19 00:00 99.0 84 18 157/84 (108) 96 08/06/19 21:48 83 16 94 Nasal Cannula 2.0 28 08/06/19 21:48 94 Nasal Cannula 2.0 28 08/06/19 21:00 Nasal Cannula 2.0 Nasal Cannula 2.0 08/06/19 20:00 98.2 79 18 148/83 (104) 98 08/06/19 16:00 99.9 98 17 142/86 (104) 98 08/06/19 12:00 97.4 77 19 135/87 (103) 95 08/06/19 09:00 Nasal Cannula 2.0 Nasal Cannula 2.0 08/06/19 08:00 97.9 82 16 140/86 (104) 97 08/06/19 08:00 97.9 82 16 140/86 (104) 97 08/06/19 04:00 99.1 90 20 144/74 (97) 93 08/06/19 00:00 97.5 91 18 151/89 (109) 93 08/05/19 21:00 Nasal Cannula 2.0 Nasal Cannula 2.0 08/05/19 20:00 98.2 73 18 142/79 (100) 97 Intake and Output 08/06/19 08/07/19 19:00 07:00 Intake Total 1000 ml Output Total 900 ml Balance 100 ml IV Total 100 ml Other 900 ml Output Urine Total 900 ml Labs Test 08/05/19 06:45 08/06/19 04:50 08/07/19 06:30 White Blood Count 6.0 K/UL (4.8-10.8) 8.9 K/UL (4.8-10.8) 6.9 K/UL (4.8-10.8) Red Blood Count 5.15 M/UL (4.70-6.10) 5.35 M/UL (4.70-6.10) 4.27 M/UL (4.70-6.10) Hemoglobin 15.4 G/DL (14.2-18.0) 16.1 G/DL (14.2-18.0) 12.9 G/DL (14.2-18.0) Hematocrit 44.8 % (42.0-52.0) 46.5 % (42.0-52.0) 38.7 % (42.0-52.0) Mean Corpuscular Volume 87 FL (80-99) 87 FL (80-99) 91 FL (80-99) Mean Corpuscular Hemoglobin 30.0 PG (27.0-31.0) 30.0 PG (27.0-31.0) 30.2 PG (27.0-31.0) Mean Corpuscular Hemoglobin Concent 34.5 G/DL (32.0-36.0) 34.5 G/DL (32.0-36.0) 33.3 G/DL (32.0-36.0) Red Cell Distribution Width 11.8 % (11.6-14.8) 11.8 % (11.6-14.8) 12.2 % (11.6-14.8) Platelet Count 296 K/UL (150-450) 314 K/UL (150-450) 229 K/UL (150-450) Mean Platelet Volume 5.8 FL (6.5-10.1) 5.4 FL (6.5-10.1) 5.7 FL (6.5-10.1) Neutrophils (%) (Auto) 32.4 % (45.0-75.0) 46.2 % (45.0-75.0) 41.3 % (45.0-75.0) Lymphocytes (%) (Auto) 54.2 % (20.0-45.0) 41.5 % (20.0-45.0) 42.9 % (20.0-45.0) Monocytes (%) (Auto) 10.0 % (1.0-10.0) 10.5 % (1.0-10.0) 13.6 % (1.0-10.0) Eosinophils (%) (Auto) 1.4 % (0.0-3.0) 0.8 % (0.0-3.0) 0.5 % (0.0-3.0) Basophils (%) (Auto) 2.1 % (0.0-2.0) 1.0 % (0.0-2.0) 1.8 % (0.0-2.0) Sodium Level 142 MMOL/L (136-145) 141 MMOL/L (136-145) 139 MMOL/L (136-145) Potassium Level 3.7 MMOL/L (3.5-5.1) 4.0 MMOL/L (3.5-5.1) 2.9 MMOL/L (3.5-5.1) Chloride Level 107 MMOL/L (98-107) 106 MMOL/L (98-107) 106 MMOL/L (98-107) Carbon Dioxide Level 29 MMOL/L (21-32) 23 MMOL/L (21-32) 26 MMOL/L (21-32) Anion Gap 6 mmol/L (5-15) 12 mmol/L (5-15) 7 mmol/L (5-15) Blood Urea Nitrogen 9 mg/dL (7-18) 9 mg/dL (7-18) 9 mg/dL (7-18) Creatinine 1.2 MG/DL (0.55-1.30) 1.1 MG/DL (0.55-1.30) 1.1 MG/DL (0.55-1.30) Estimat Glomerular Filtration Rate > 60 mL/min (>60) > 60 mL/min (>60) > 60 mL/min (>60) Glucose Level 97 MG/DL (74-106) 86 MG/DL (74-106) 552 MG/DL (74-106) Calcium Level 8.4 MG/DL (8.5-10.1) 8.5 MG/DL (8.5-10.1) 6.9 MG/DL (8.5-10.1) Height (Feet): 5 Height (Inches): 9.00 Weight (Pounds): 184 Objective Gen: nad Pulm: ctab, no cwr CV: rr, no mgr Abd: soft, nt, nd Ext: no cce Hussain Hernandez MD Aug 07, 2019 19:40
[2019-08-07] MEDS: Dyna-Hex 2% Top Sol 2oz TOPIC SCH (20:17)
[2019-08-07] MEDS: Cephalexin 500mg cap ORAL SCH (20:18)
[2019-08-08] VITALS: BP 140/73
[2019-08-08 04:00] VITALS: BP 142/69
[2019-08-08 06:41] LABS: BASOPHILS % (AUTO) 1.1 % (0.0-2.0); EOSINOPHILS % (AUTO) 1.6 % (0.0-3.0); HEMATOCRIT 38.5 % (42.0-52.0); HEMOGLOBIN 13.4 G/DL (14.2-18.0); LYMPHOCYTES % (AUTO) 53.1 % (20.0-45.0); MEAN CORPUSCULAR VOLUME 87 FL (80-99); NEUTROPHILS % (AUTO) 34.2 % (45.0-75.0); PLATELET COUNT 263 K/UL (150-450); RED BLOOD COUNT 4.41 M/UL (4.70-6.10); RED CELL DISTRIBUTION WIDTH 11.8 % (11.6-14.8); WHITE BLOOD COUNT 5.5 K/UL (4.8-10.8)
[2019-08-08 07:04] LABS: ANION GAP 9 mmol/L (5-15); BLOOD UREA NITROGEN 9 mg/dL (7-18); CALCIUM 8.2 MG/DL (8.5-10.1); CARBON DIOXIDE 27 MMOL/L (21-32); CHLORIDE 105 MMOL/L (98-107); CREATININE 1.1 MG/DL (0.55-1.30); POTASSIUM 3.8 MMOL/L (3.5-5.1); SODIUM 140 MMOL/L (136-145)
[2019-08-08 08:00] VITALS: BP 148/78
--- NOTE | 2019-08-08 08:32 | NUR ---
P.T/Rehab Note: P.T evaluation completed and tx initiated. Please refer to P.T evaluation for current functional status and POC. Pt is alert, oriented to self/person but not to time, place and situation. Pt follows commands appropriately and answers to simple Y/N questions appropriately as well. Pt denied c/o pain presents generalized weakness. Pt currently requires MIN A X 1 for bed mobility, MOD A X 1 for transfers and able to ambulate and luigi. 8 ft with FWW and MIN A X 1. Pt is high all fall risks and would benefit from skilled P.T service to improve his strength, balance and endurance to increase functional mobility independence and safety. Recommend return to SNF with continue rehab intervention as DC. Addendum: 08/08/19 at 0840 by FAWAD JOHNSTON PT The above P.T note is a WRONG ENTRY ( wrong patient ) . Please disregard. Thank you.
[2019-08-08] MEDS ORDERED: BIKTARVY ORAL SCH (09:00)
--- NOTE | 2019-08-08 09:19 | General Progress Note ---
Assessment/Plan Problem List: (1) HIV (human immunodeficiency virus infection) ICD Codes: B20 - Human immunodeficiency virus [HIV] disease SNOMED: 69060234 (2) Malnutrition ICD Codes: E46 - Unspecified protein-calorie malnutrition SNOMED: 24204548 (3) Sepsis ICD Codes: A41.9 - Sepsis, unspecified organism SNOMED: 97787601 (4) Atypical pneumonia ICD Codes: J18.9 - Pneumonia, unspecified organism SNOMED: 390056727 (5) Drug abuse ICD Codes: F19.10 - Other psychoactive substance abuse, uncomplicated SNOMED: 46510408 Status: stable, progressing Assessment/Plan: o2 pulm tx abx pt diet dc w hh if clear Subjective Constitutional: Reports: weakness Allergies: Coded Allergies: EGG (Verified Allergy, Intermediate, Hives, 07/30/19) SHELLFISH DERIVED (Verified Allergy, Intermediate, Shortness of Breath, ) SOB and hives All Systems: reviewed and negative except above Subjective o2 nc calm Objective Last 24 Hour Vital Signs Date Time Temp Pulse Resp B/P (MAP) Pulse Ox O2 Delivery O2 Flow Rate FiO2 08/08/19 08:05 84 16 96 Nasal Cannula 2.0 28 08/08/19 08:04 96 Nasal Cannula 2.0 28 08/08/19 05:11 142/69 08/08/19 04:00 97.9 68 17 142/69 (93) 96 08/08/19 00:00 97.7 69 20 140/73 (95) 100 08/07/19 23:40 140/73 08/07/19 21:06 87 16 97 Nasal Cannula 2.0 28 08/07/19 21:06 97 Nasal Cannula 2.0 28 08/07/19 21:00 Nasal Cannula 2.0 Nasal Cannula 2.0 08/07/19 20:48 98.6 08/07/19 20:00 98.1 68 20 145/72 (96) 97 08/07/19 17:08 154/77 08/07/19 15:50 98.6 65 18 154/77 (102) 99 08/07/19 13:55 18 154/84 (107) 99 08/07/19 13:55 154/84 08/07/19 12:00 98.4 74 18 190/96 (127) 99 Intake and Output 08/07/19 08/08/19 18:59 06:59 Intake Total 1900 ml Output Total 1500 ml 900 ml Balance 400 ml -900 ml Intake Oral 1080 ml IV Total 820 ml Output Urine Total 1500 ml 900 ml Laboratory Tests 08/08/19 05:36: White Blood Count 5.5, Red Blood Count 4.41L, Hemoglobin 13.4L, Hematocrit 38.5L , Mean Corpuscular Volume 87, Mean Corpuscular Hemoglobin 30.4, Mean Corpuscular Hemoglobin Concent 34.8, Red Cell Distribution Width 11.8, Platelet Count 263, Mean Platelet Volume 5.2L, Neutrophils (%) (Auto) 34.2L, Lymphocytes (%) (Auto) 53.1H, Monocytes (%) (Auto) 10.0, Eosinophils (%) (Auto) 1.6, Basophils (%) (Auto) 1.1, Sodium Level 140, Potassium Level 3.8, Chloride Level 105, Carbon Dioxide Level 27, Anion Gap 9, Blood Urea Nitrogen 9, Creatinine 1.1 , Estimat Glomerular Filtration Rate > 60, Glucose Level 98#, Calcium Level 8.2L Height (Feet): 5 Height (Inches): 9.00 Weight (Pounds): 184 General Appearance: lethargic EENT: normal ENT inspection Neck: normal alignment Cardiovascular: normal peripheral pulses, normal rate, regular rhythm Respiratory/Chest: chest wall non-tender, lungs clear, normal breath sounds Abdomen: normal bowel sounds, non tender, soft Extremities: normal inspection Edema: no edema noted Arm (L), no edema noted Arm (R), no edema noted Leg (L), no edema noted Leg (R), no edema noted Pedal (L), no edema noted Pedal (R), no edema noted Generalized Neurologic: motor weakness Skin: normal pigmentation, warm/dry Ion Temple DO Aug 08, 2019 09:19
[2019-08-08] MEDS: Cephalexin 500mg cap ORAL SCH ×2 (09:25→13:42)
[2019-08-08] MEDS: Heparin 5000 units/ml inj SUBQ SCH (09:26)
--- NOTE | 2019-08-08 10:51 | NUR ---
Social Work Patient requesting to speak with this SW. This SW met with patient who requested a short term disability application. Paperwork and explanation provided to patient. Patient plans to discharge to home alone independently. Patient expressing no further needs or concerns at this time.
--- NOTE | 2019-08-08 10:56 | NUR ---
NURSE NOTES Patient cleared from pulmo by MD Salgado.
--- NOTE | 2019-08-08 11:29 | Infectious Diseases Prog Note ---
Assessment/Plan Assessment/Plan Assessment/Plan: 59yo gentleman with PMH tobacco and marijuana abuse, also found to have PCP, amphetamine positive presents with one week of fever, chills , cough, sob, diarrhea. ID consulted for recommendation Tmax 100.3, SP No leukocytosis Lactate 1.6 CAP? 07/27 flu swab negative 07/27 CTPA: No evidence of pulmonary embolus, aortic dissection or aneurysm. Patchy bilateral infiltrates. Consider pneumonia. Correlate clinically. Hiatal hernia. Degenerative changes of the spine. 07/28 TTE: EF 60%, mild diastolic dysfunction 07/31 CXR: Unchanged left basilar atelectasis and possible patchy infiltrate, since 07/27/2019. Central bronchial wall thickening, likely indicating bronchitis changes 08/01 sputum cx: normal roverto 07/27 UA negative r/o bacteremia 06/26 BCx: ngtd LUE swelling, improving. skin wrinkling. negative for DVT Transaminitis US Abd: No acute findings. 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 elevate. 07/31 SP cefepime, vancomycin, azithromycin #5 SP Ceftriaxone 07/27 trend temp, CBC f/u hepatitis panel Thank you for this consult. [facility] will continue to follow the patient with you. Subjective Allergies: Coded Allergies: EGG (Verified Allergy, Intermediate, Hives, 07/30/19) SHELLFISH DERIVED (Verified Allergy, Intermediate, Shortness of Breath, ) SOB and hives Subjective Afebrile. No leukocytosis Pt feels ready to go home. Objective Vital Signs Last 24 Hour Vital Signs Date Time Temp Pulse Resp B/P (MAP) Pulse Ox O2 Delivery O2 Flow Rate FiO2 08/08/19 09:00 Nasal Cannula 2.0 Nasal Cannula 2.0 08/08/19 08:05 84 16 96 Nasal Cannula 2.0 28 08/08/19 08:04 96 Nasal Cannula 2.0 28 08/08/19 08:00 98.1 62 18 148/78 (101) 97 08/08/19 05:11 142/69 08/08/19 04:00 97.9 68 17 142/69 (93) 96 08/08/19 00:00 97.7 69 20 140/73 (95) 100 08/07/19 23:40 140/73 08/07/19 21:06 87 16 97 Nasal Cannula 2.0 28 08/07/19 21:06 97 Nasal Cannula 2.0 28 08/07/19 21:00 Nasal Cannula 2.0 Nasal Cannula 2.0 08/07/19 20:48 98.6 08/07/19 20:00 98.1 68 20 145/72 (96) 97 08/07/19 17:08 154/77 08/07/19 15:50 98.6 65 18 154/77 (102) 99 08/07/19 13:55 18 154/84 (107) 99 08/07/19 13:55 154/84 08/07/19 12:00 98.4 74 18 190/96 (127) 99 Height (Feet): 5 Height (Inches): 9.00 Weight (Pounds): 184 Objective VS: afebrile. RA. Gen: NAD HEENT: anicteric sclera CV: RRR Resp: coarse crackles diffusely Abd: soft. no TTP. slightly distended. Ext: no LE edema Laboratory Tests Test 08/08/19 05:36 White Blood Count 5.5 K/UL (4.8-10.8) Red Blood Count 4.41 M/UL (4.70-6.10) L Hemoglobin 13.4 G/DL (14.2-18.0) L Hematocrit 38.5 % (42.0-52.0) L Mean Corpuscular Volume 87 FL (80-99) Mean Corpuscular Hemoglobin 30.4 PG (27.0-31.0) Mean Corpuscular Hemoglobin Concent 34.8 G/DL (32.0-36.0) Red Cell Distribution Width 11.8 % (11.6-14.8) Platelet Count 263 K/UL (150-450) Mean Platelet Volume 5.2 FL (6.5-10.1) L Neutrophils (%) (Auto) 34.2 % (45.0-75.0) L Lymphocytes (%) (Auto) 53.1 % (20.0-45.0) H Monocytes (%) (Auto) 10.0 % (1.0-10.0) Eosinophils (%) (Auto) 1.6 % (0.0-3.0) Basophils (%) (Auto) 1.1 % (0.0-2.0) Sodium Level 140 MMOL/L (136-145) Potassium Level 3.8 MMOL/L (3.5-5.1) Chloride Level 105 MMOL/L (98-107) Carbon Dioxide Level 27 MMOL/L (21-32) Anion Gap 9 mmol/L (5-15) Blood Urea Nitrogen 9 mg/dL (7-18) Creatinine 1.1 MG/DL (0.55-1.30) Estimat Glomerular Filtration Rate > 60 mL/min (>60) Glucose Level 98 MG/DL (74-106) # Calcium Level 8.2 MG/DL (8.5-10.1) L Current Medications Medications (Trade) Dose Ordered Sig/Anthony Route PRN Reason Start Time Stop Time Status Last Admin Dose Admin Acetaminophen (Tylenol) 650 mg Q4H PRN ORAL PAIN/FEVER (T>100.5) 08/07/19 14:12 08/28/19 18:11 08/08/19 05:12 Albuterol/ Ipratropium (Albuterol/ Ipratropium) 3 ml Q4H PRN HHN Shortness of Breath 08/05/19 20:30 08/10/19 20:29 Cephalexin (Keflex) 500 mg QID ORAL 08/07/19 21:00 08/14/19 20:59 08/08/19 09:25 Chlorhexidine Gluconate (Hellen-Hex 2%) 1 applic DAILY@1999 TOPIC 08/06/19 20:00 09/05/19 19:59 08/07/19 20:17 Clonidine HCl (Catapres Tab) 0.1 mg EVERY 6 HOURS ORAL 08/07/19 13:00 09/06/19 12:59 08/08/19 05:11 Dextrose (Dextrose 50%) 25 ml Q30M PRN IV Hypoglycemia 07/29/19 18:15 08/26/19 18:44 Dextrose (Dextrose 50%) 50 ml Q30M PRN IV Hypoglycemia 07/29/19 18:15 08/26/19 18:44 Diphenhydramine HCl (Benadryl) 25 mg Q6H PRN ORAL Itching/Pruritis 07/29/19 18:12 08/28/19 18:11 Guaifenesin/ Dextromethorphan (Robitussin DM Syrup) 15 ml Q4H PRN ORAL For Cough 07/29/19 18:12 08/28/19 18:11 08/04/19 15:04 Heparin Sodium (Porcine) (Heparin 5000 units/ml) 5,000 units EVERY 12 HOURS SUBQ 07/29/19 21:00 08/27/19 08:59 08/08/19 09:26 Morphine Sulfate (Morphine Sulfate) 2 mg Q4H PRN IVP For Pain 08/06/19 06:15 08/13/19 06:14 08/06/19 17:59 Ondansetron HCl (Zofran) 4 mg Q6H PRN IVP Nausea & Vomiting 07/29/19 18:13 08/28/19 18:12 08/06/19 17:58 Patient Own Medication (Patient's Own Med) 1 ea DAILY ORAL 08/08/19 09:00 09/07/19 08:59 08/08/19 09:25 Polyethylene Glycol (Miralax) 17 gm DAILYPRN PRN ORAL Constipation 07/29/19 18:13 08/28/19 18:12 Sodium Chloride 1,000 ml @ 60 mls/hr [id number] IV 08/07/19 10:30 09/06/19 10:29 08/08/19 02:20 Temazepam (Restoril) 15 mg HSPRN PRN ORAL Insomnia 08/06/19 09:30 08/13/19 09:29 08/07/19 20:22 Olman Torres MD Aug 08, 2019 11:29
--- NOTE | 2019-08-08 11:55 | General Progress Note ---
Assessment/Plan Problem List: (1) Tobacco abuse ICD Codes: Z72.0 - Tobacco use SNOMED: 946972928 (2) Atypical pneumonia ICD Codes: J18.9 - Pneumonia, unspecified organism SNOMED: 384125753 Status: stable, progressing Assessment/Plan: Assessment/Plan Problems: (1) Malnutrition ICD Codes: E46 - Unspecified protein-calorie malnutrition SNOMED: 36708162 (2) Drug abuse ICD Codes: F19.10 - Other psychoactive substance abuse, uncomplicated SNOMED: 74782972 Status: stable, unchanged Assessment/Plan Urine toxicity positive for phencyclidine, amphetamines and marijuana History of colonoscopy x3 years with unremarkable findings No plans for any GI procedures at this time fu pulmonary recommendations Symptomatic treatment Zofran as needed PPI Follow labs Subjective ROS Limited/Unobtainable: Yes Allergies: Coded Allergies: EGG (Verified Allergy, Intermediate, Hives, 07/30/19) SHELLFISH DERIVED (Verified Allergy, Intermediate, Shortness of Breath, ) SOB and hives Subjective last vomiting yesterday Objective Last 24 Hour Vital Signs Date Time Temp Pulse Resp B/P (MAP) Pulse Ox O2 Delivery O2 Flow Rate FiO2 08/08/19 09:00 Nasal Cannula 2.0 Nasal Cannula 2.0 08/08/19 08:05 84 16 96 Nasal Cannula 2.0 28 08/08/19 08:04 96 Nasal Cannula 2.0 28 08/08/19 08:00 98.1 62 18 148/78 (101) 97 08/08/19 05:11 142/69 08/08/19 04:00 97.9 68 17 142/69 (93) 96 08/08/19 00:00 97.7 69 20 140/73 (95) 100 08/07/19 23:40 140/73 08/07/19 21:06 87 16 97 Nasal Cannula 2.0 28 08/07/19 21:06 97 Nasal Cannula 2.0 28 08/07/19 21:00 Nasal Cannula 2.0 Nasal Cannula 2.0 08/07/19 20:48 98.6 08/07/19 20:00 98.1 68 20 145/72 (96) 97 08/07/19 17:08 154/77 08/07/19 15:50 98.6 65 18 154/77 (102) 99 08/07/19 13:55 18 154/84 (107) 99 08/07/19 13:55 154/84 08/07/19 12:00 98.4 74 18 190/96 (127) 99 Intake and Output 08/07/19 08/08/19 19:00 07:00 Intake Total 1800 ml Output Total 1500 ml 900 ml Balance 300 ml -900 ml Intake Oral 1080 ml IV Total 720 ml Output Urine Total 1500 ml 900 ml Laboratory Tests 08/08/19 05:36: White Blood Count 5.5, Red Blood Count 4.41L, Hemoglobin 13.4L, Hematocrit 38.5L , Mean Corpuscular Volume 87, Mean Corpuscular Hemoglobin 30.4, Mean Corpuscular Hemoglobin Concent 34.8, Red Cell Distribution Width 11.8, Platelet Count 263, Mean Platelet Volume 5.2L, Neutrophils (%) (Auto) 34.2L, Lymphocytes (%) (Auto) 53.1H, Monocytes (%) (Auto) 10.0, Eosinophils (%) (Auto) 1.6, Basophils (%) (Auto) 1.1, Sodium Level 140, Potassium Level 3.8, Chloride Level 105, Carbon Dioxide Level 27, Anion Gap 9, Blood Urea Nitrogen 9, Creatinine 1.1 , Estimat Glomerular Filtration Rate > 60, Glucose Level 98#, Calcium Level 8.2L Height (Feet): 5 Height (Inches): 9.00 Weight (Pounds): 184 General Appearance: no apparent distress EENT: normal ENT inspection Neck: supple Cardiovascular: normal rate Respiratory/Chest: decreased breath sounds Abdomen: normal bowel sounds, non tender, soft Extremities: non-tender Stevie Ahumada MD Aug 08, 2019 11:55
--- NOTE | 2019-08-08 11:59 | NUR ---
RD ASSESSMENT & RECOMMENDATIONS SEE CARE ACTIVITY FOR COMPLETE ASSESSMENT DAILY ESTIMATED NEEDS: Needs based on pulmonary, HIV 75.6kg abw 25-30 kcals/kg 0986-4450 total kcals 1-1.5 g protein/kg 76-113 g total protein 25-30 mL/kg 0501-2216 total fluid mLs NUTRITION DIAGNOSIS: Altered nutrition related lab values r/t clinical status, HIV,and h/o drug use as evidenced by elev LFT's, CD4 666, (+) tox for meth, A1C of 5.9. CURRENT DIET:Regular PO DIET RECOMMENDATIONS: LOW NA, CCHO MED ADDITIONAL RECOMMENDATIONS: 1) Obtain a standing weight as able 2) Monitor for continued good PO intake and tolerance: pt denies nausea 3) Monitor BGs closely- BG 552 on 08/07- possible error? POC glu 107-124 4) MONITOR AND RECORD BM REGULARITY -> consider daily bowel regimen, add prune juice daily -> BM not recorded since adm, LOS #12
[2019-08-08 12:00] VITALS: BP 145/77
[2019-08-08] MEDS ORDERED: KEFLEX500 M1 ORAL (13:11)
--- NOTE | 2019-08-08 13:13 | Pulmonology Progress Note ---
Assessment/Plan Problems: (1) Superficial phlebitis of arm (2) Intractable nausea and vomiting (3) Atypical pneumonia (4) Tobacco abuse (5) HIV (human immunodeficiency virus infection) (6) Drug abuse Assessment/Plan sympotmatic treatment on Keflex of superficial phelbitis med/surg All medications and treatment were reviewed. prescription given for 5 days of Keflex as recommended by ID Subjective ROS Limited/Unobtainable: No Constitutional: Reports: no symptoms HEENT: Repors: no symptoms Allergies: Coded Allergies: EGG (Verified Allergy, Intermediate, Hives, 07/30/19) SHELLFISH DERIVED (Verified Allergy, Intermediate, Shortness of Breath, ) SOB and hives Objective Last 24 Hour Vital Signs Date Time Temp Pulse Resp B/P (MAP) Pulse Ox O2 Delivery O2 Flow Rate FiO2 08/08/19 09:00 Nasal Cannula 2.0 Nasal Cannula 2.0 08/08/19 08:05 84 16 96 Nasal Cannula 2.0 28 08/08/19 08:04 96 Nasal Cannula 2.0 28 08/08/19 08:00 98.1 62 18 148/78 (101) 97 08/08/19 05:11 142/69 08/08/19 04:00 97.9 68 17 142/69 (93) 96 08/08/19 00:00 97.7 69 20 140/73 (95) 100 08/07/19 23:40 140/73 08/07/19 21:06 87 16 97 Nasal Cannula 2.0 28 08/07/19 21:06 97 Nasal Cannula 2.0 28 08/07/19 21:00 Nasal Cannula 2.0 Nasal Cannula 2.0 08/07/19 20:48 98.6 08/07/19 20:00 98.1 68 20 145/72 (96) 97 08/07/19 17:08 154/77 08/07/19 15:50 98.6 65 18 154/77 (102) 99 08/07/19 13:55 18 154/84 (107) 99 08/07/19 13:55 154/84 Intake and Output 08/07/19 08/08/19 19:00 07:00 Intake Total 1800 ml Output Total 1500 ml 900 ml Balance 300 ml -900 ml Intake Oral 1080 ml IV Total 720 ml Output Urine Total 1500 ml 900 ml Objective c/o left arm pain General Appearance: WD/WN HEENT: normocephalic, anicteric Respiratory/Chest: chest wall non-tender, no respiratory distress Cardiovascular: normal peripheral pulses, normal rate, no JVD Abdomen: soft, non tender, no scars Extremities: no cyanosis Skin: no rash Neurologic/Psychiatric: traveling representative II-XII grossly normal, normal mood/affect Laboratory Tests 08/08/19 05:36: White Blood Count 5.5, Red Blood Count 4.41L, Hemoglobin 13.4L, Hematocrit 38.5L , Mean Corpuscular Volume 87, Mean Corpuscular Hemoglobin 30.4, Mean Corpuscular Hemoglobin Concent 34.8, Red Cell Distribution Width 11.8, Platelet Count 263, Mean Platelet Volume 5.2L, Neutrophils (%) (Auto) 34.2L, Lymphocytes (%) (Auto) 53.1H, Monocytes (%) (Auto) 10.0, Eosinophils (%) (Auto) 1.6, Basophils (%) (Auto) 1.1, Sodium Level 140, Potassium Level 3.8, Chloride Level 105, Carbon Dioxide Level 27, Anion Gap 9, Blood Urea Nitrogen 9, Creatinine 1.1 , Estimat Glomerular Filtration Rate > 60, Glucose Level 98#, Calcium Level 8.2L Current Medications Medications (Trade) Dose Ordered Sig/Anthony Route PRN Reason Start Time Stop Time Status Last Admin Dose Admin Acetaminophen (Tylenol) 650 mg Q4H PRN ORAL PAIN/FEVER (T>100.5) 08/07/19 14:12 08/28/19 18:11 08/08/19 05:12 Albuterol/ Ipratropium (Albuterol/ Ipratropium) 3 ml Q4H PRN HHN Shortness of Breath 08/05/19 20:30 08/10/19 20:29 Cephalexin (Keflex) 500 mg QID ORAL 08/07/19 21:00 08/14/19 20:59 08/08/19 09:25 Chlorhexidine Gluconate (Hellen-Hex 2%) 1 applic DAILY@1999 TOPIC 08/06/19 20:00 09/05/19 19:59 08/07/19 20:17 Clonidine HCl (Catapres Tab) 0.1 mg EVERY 6 HOURS ORAL 08/07/19 13:00 09/06/19 12:59 08/08/19 05:11 Dextrose (Dextrose 50%) 25 ml Q30M PRN IV Hypoglycemia 07/29/19 18:15 08/26/19 18:44 Dextrose (Dextrose 50%) 50 ml Q30M PRN IV Hypoglycemia 07/29/19 18:15 08/26/19 18:44 Diphenhydramine HCl (Benadryl) 25 mg Q6H PRN ORAL Itching/Pruritis 07/29/19 18:12 08/28/19 18:11 Guaifenesin/ Dextromethorphan (Robitussin DM Syrup) 15 ml Q4H PRN ORAL For Cough 07/29/19 18:12 08/28/19 18:11 08/04/19 15:04 Heparin Sodium (Porcine) (Heparin 5000 units/ml) 5,000 units EVERY 12 HOURS SUBQ 07/29/19 21:00 08/27/19 08:59 08/08/19 09:26 Morphine Sulfate (Morphine Sulfate) 2 mg Q4H PRN IVP For Pain 08/06/19 06:15 08/13/19 06:14 08/06/19 17:59 Ondansetron HCl (Zofran) 4 mg Q6H PRN IVP Nausea & Vomiting 07/29/19 18:13 08/28/19 18:12 08/06/19 17:58 Patient Own Medication (Patient's Own Med) 1 ea DAILY ORAL 08/08/19 09:00 09/07/19 08:59 08/08/19 09:25 Polyethylene Glycol (Miralax) 17 gm DAILYPRN PRN ORAL Constipation 07/29/19 18:13 08/28/19 18:12 Sodium Chloride 1,000 ml @ 60 mls/hr [id number] IV 08/07/19 10:30 09/06/19 10:29 08/08/19 02:20 Temazepam (Restoril) 15 mg HSPRN PRN ORAL Insomnia 08/06/19 09:30 08/13/19 09:29 08/07/19 20:22 Elle Salgado MD Aug 08, 2019 13:13
[2019-08-08] MEDS ORDERED: ALBUTEROL SULF8.5 GM INH (13:14)
[2019-08-08] MEDS ORDERED: ACETAMINOPHEN325 M1 ORAL (13:53)
[2019-08-08] MEDS ORDERED: DIPHENHYDRAMINE25 M1 ORAL (13:54)
[2019-08-08] MEDS ORDERED: CLONIDINE HCL0.1 MG PO (13:54)
[2019-08-08] MEDS ORDERED: GUAIFENESI100 MG/5 M ORAL (13:57)
[2019-08-08] MEDS ORDERED: MIRALAX17 G2 ORAL (13:58)
[2019-08-08] MEDS ORDERED: RESTORIL15 MG ORAL (13:58)
--- NOTE | 2019-08-08 15:30 | NUR ---
NURSE NOTES: Patient's friend forgot money for copayment for new prescriptions. He left to get money. Discharge delayed due to patient. Charge nurse made aware and Director of case management as well.
[2019-08-08 16:00] VITALS: BP 147/76
--- NOTE | 2019-08-08 16:38 | Hematology/Onc Progress Note ---
Assessment/Plan Assessment/Plan # Elevated D-dimer on admission with lower ext swelling --> obtain a duplex lower ext and it was neg --> CTA of the pulm system reviewed and neg for pe --> can be related to inflammatory process --> monitor for clinical symptoms of pe or dvt --> keflex for phlebitis # Failure to thrive, with a prior hx colonoscopy x3 years with unremarkable findings --> daily weight and calorie counts --> review current diet, nutrition recs # Drug abuse - Urine toxicity positive for phencyclidine, amphetamines and marijuana --> cessation recommended # Transaminitis # HIV # Tabacco use DW RN and appreciate consultation. Subjective HEENT: Denies: no symptoms, eye pain, blurred vision, tearing, double vision, ear pain, ear discharge, nose pain, nose congestion, throat pain, throat swelling, mouth pain, mouth swelling, other Cardiovascular: Denies: no symptoms, chest pain, edema, irregular heart rate, lightheadedness, palpitations, syncope, other Genitourinary: Denies: no symptoms, burning, discharge, frequency, flank pain, hematuria, incontinence, pain, urgency, other Neurologic/Psychiatric: Denies: no symptoms, anxiety, depressed, emotional problems, headache, numbness, paresthesia, pre-existing deficit, seizure, tingling, tremors, weakness, other Endocrine: Denies: no symptoms, excessive sweating, flushing, intolerance to cold, intolerance to heat, increased hunger, increased thirst, increased urine, unexplained weight gain, unexplained weight loss, other Allergies: Coded Allergies: EGG (Verified Allergy, Intermediate, Hives, 07/30/19) SHELLFISH DERIVED (Verified Allergy, Intermediate, Shortness of Breath, ) SOB and hives Subjective 08/07: no events, labs noted, seen by gi, pulm 08/08: is cleared for dc, labs essentially unchanged Objective Objective Current Medications Medications (Trade) Dose Ordered Sig/Anthony Route PRN Reason Start Time Stop Time Status Last Admin Dose Admin Acetaminophen (Tylenol) 650 mg Q4H PRN ORAL PAIN/FEVER (T>100.5) 08/07/19 14:12 08/28/19 18:11 08/08/19 05:12 Albuterol/ Ipratropium (Albuterol/ Ipratropium) 3 ml Q4H PRN HHN Shortness of Breath 08/05/19 20:30 08/10/19 20:29 Cephalexin (Keflex) 500 mg QID ORAL 08/07/19 21:00 08/14/19 20:59 08/08/19 13:42 Chlorhexidine Gluconate (Hellen-Hex 2%) 1 applic DAILY@2000 TOPIC 08/06/19 20:00 09/05/19 19:59 08/07/19 20:17 Clonidine HCl (Catapres Tab) 0.1 mg EVERY 6 HOURS ORAL 08/07/19 13:00 09/06/19 12:59 08/08/19 13:42 Dextrose (Dextrose 50%) 25 ml Q30M PRN IV Hypoglycemia 07/29/19 18:15 08/26/19 18:44 Dextrose (Dextrose 50%) 50 ml Q30M PRN IV Hypoglycemia 07/29/19 18:15 08/26/19 18:44 Diphenhydramine HCl (Benadryl) 25 mg Q6H PRN ORAL Itching/Pruritis 07/29/19 18:12 08/28/19 18:11 Guaifenesin/ Dextromethorphan (Robitussin DM Syrup) 15 ml Q4H PRN ORAL For Cough 07/29/19 18:12 08/28/19 18:11 08/04/19 15:04 Heparin Sodium (Porcine) (Heparin 5000 units/ml) 5,000 units EVERY 12 HOURS SUBQ 07/29/19 21:00 08/27/19 08:59 08/08/19 09:26 Morphine Sulfate (Morphine Sulfate) 2 mg Q4H PRN IVP For Pain 08/06/19 06:15 08/13/19 06:14 08/06/19 17:59 Ondansetron HCl (Zofran) 4 mg Q6H PRN IVP Nausea & Vomiting 07/29/19 18:13 08/28/19 18:12 08/06/19 17:58 Patient Own Medication (Patient's Own Med) 1 ea DAILY ORAL 08/08/19 09:00 09/07/19 08:59 08/08/19 09:25 Polyethylene Glycol (Miralax) 17 gm DAILYPRN PRN ORAL Constipation 07/29/19 18:13 08/28/19 18:12 Sodium Chloride 1,000 ml @ 60 mls/hr [id number] IV 08/07/19 10:30 09/06/19 10:29 08/08/19 02:20 Temazepam (Restoril) 15 mg HSPRN PRN ORAL Insomnia 08/06/19 09:30 08/13/19 09:29 08/07/19 20:22 Last 24 Hour Vital Signs Date Time Temp Pulse Resp B/P (MAP) Pulse Ox O2 Delivery O2 Flow Rate FiO2 08/08/19 16:00 98.4 67 20 147/76 (99) 95 08/08/19 13:42 145/77 08/08/19 12:00 97.5 62 20 145/77 (99) 99 08/08/19 09:00 Nasal Cannula 2.0 Nasal Cannula 2.0 08/08/19 08:05 84 16 96 Nasal Cannula 2.0 28 08/08/19 08:04 96 Nasal Cannula 2.0 28 08/08/19 08:00 98.1 62 18 148/78 (101) 97 08/08/19 05:11 142/69 08/08/19 04:00 97.9 68 17 142/69 (93) 96 08/08/19 00:00 97.7 69 20 140/73 (95) 100 08/07/19 23:40 140/73 08/07/19 21:06 87 16 97 Nasal Cannula 2.0 28 08/07/19 21:06 97 Nasal Cannula 2.0 28 08/07/19 21:00 Nasal Cannula 2.0 Nasal Cannula 2.0 08/07/19 20:48 98.6 08/07/19 20:00 98.1 68 20 145/72 (96) 97 08/07/19 17:08 154/77 08/07/19 15:50 98.6 65 18 154/77 (102) 99 08/07/19 13:55 18 154/84 (107) 99 08/07/19 13:55 154/84 08/07/19 12:00 98.4 74 18 190/96 (127) 99 08/07/19 09:11 83 16 97 Nasal Cannula 2.0 28 08/07/19 09:11 97 Nasal Cannula 2.0 28 08/07/19 09:00 Nasal Cannula 2.0 Nasal Cannula 2.0 08/07/19 08:00 98.2 81 20 155/80 (105) 99 08/07/19 04:00 98.2 75 19 160/70 (100) 99 08/07/19 01:01 99.0 08/07/19 00:41 99.0 84 18 157/80 (105) 96 08/07/19 00:00 99.0 84 18 157/84 (108) 96 08/06/19 21:48 83 16 94 Nasal Cannula 2.0 28 08/06/19 21:48 94 Nasal Cannula 2.0 28 08/06/19 21:00 Nasal Cannula 2.0 Nasal Cannula 2.0 08/06/19 20:00 98.2 79 18 148/83 (104) 98 Intake and Output 08/07/19 08/08/19 19:00 07:00 Intake Total 1800 ml Output Total 1500 ml 900 ml Balance 300 ml -900 ml Intake Oral 1080 ml IV Total 720 ml Output Urine Total 1500 ml 900 ml Labs Test 08/06/19 04:50 08/07/19 06:30 08/08/19 05:36 White Blood Count 8.9 K/UL (4.8-10.8) 6.9 K/UL (4.8-10.8) 5.5 K/UL (4.8-10.8) Red Blood Count 5.35 M/UL (4.70-6.10) 4.27 M/UL (4.70-6.10) 4.41 M/UL (4.70-6.10) Hemoglobin 16.1 G/DL (14.2-18.0) 12.9 G/DL (14.2-18.0) 13.4 G/DL (14.2-18.0) Hematocrit 46.5 % (42.0-52.0) 38.7 % (42.0-52.0) 38.5 % (42.0-52.0) Mean Corpuscular Volume 87 FL (80-99) 91 FL (80-99) 87 FL (80-99) Mean Corpuscular Hemoglobin 30.0 PG (27.0-31.0) 30.2 PG (27.0-31.0) 30.4 PG (27.0-31.0) Mean Corpuscular Hemoglobin Concent 34.5 G/DL (32.0-36.0) 33.3 G/DL (32.0-36.0) 34.8 G/DL (32.0-36.0) Red Cell Distribution Width 11.8 % (11.6-14.8) 12.2 % (11.6-14.8) 11.8 % (11.6-14.8) Platelet Count 314 K/UL (150-450) 229 K/UL (150-450) 263 K/UL (150-450) Mean Platelet Volume 5.4 FL (6.5-10.1) 5.7 FL (6.5-10.1) 5.2 FL (6.5-10.1) Neutrophils (%) (Auto) 46.2 % (45.0-75.0) 41.3 % (45.0-75.0) 34.2 % (45.0-75.0) Lymphocytes (%) (Auto) 41.5 % (20.0-45.0) 42.9 % (20.0-45.0) 53.1 % (20.0-45.0) Monocytes (%) (Auto) 10.5 % (1.0-10.0) 13.6 % (1.0-10.0) 10.0 % (1.0-10.0) Eosinophils (%) (Auto) 0.8 % (0.0-3.0) 0.5 % (0.0-3.0) 1.6 % (0.0-3.0) Basophils (%) (Auto) 1.0 % (0.0-2.0) 1.8 % (0.0-2.0) 1.1 % (0.0-2.0) Sodium Level 141 MMOL/L (136-145) 139 MMOL/L (136-145) 140 MMOL/L (136-145) Potassium Level 4.0 MMOL/L (3.5-5.1) 2.9 MMOL/L (3.5-5.1) 3.8 MMOL/L (3.5-5.1) Chloride Level 106 MMOL/L (98-107) 106 MMOL/L (98-107) 105 MMOL/L (98-107) Carbon Dioxide Level 23 MMOL/L (21-32) 26 MMOL/L (21-32) 27 MMOL/L (21-32) Anion Gap 12 mmol/L (5-15) 7 mmol/L (5-15) 9 mmol/L (5-15) Blood Urea Nitrogen 9 mg/dL (7-18) 9 mg/dL (7-18) 9 mg/dL (7-18) Creatinine 1.1 MG/DL (0.55-1.30) 1.1 MG/DL (0.55-1.30) 1.1 MG/DL (0.55-1.30) Estimat Glomerular Filtration Rate > 60 mL/min (>60) > 60 mL/min (>60) > 60 mL/min (>60) Glucose Level 86 MG/DL (74-106) 552 MG/DL (74-106) 98 MG/DL (74-106) Calcium Level 8.5 MG/DL (8.5-10.1) 6.9 MG/DL (8.5-10.1) 8.2 MG/DL (8.5-10.1) Height (Feet): 5 Height (Inches): 9.00 Weight (Pounds): 184 Objective Gen: nad Pulm: ctab, no cwr CV: rr, no mgr Abd: soft, nt, nd Ext: no cce Hussain Hernandez MD Aug 08, 2019 16:38
--- NOTE | 2019-08-08 17:00 | Consultation ---
DATE OF CONSULTATION: 08/08/2019 ENDOCRINOLOGY CONSULTATION CONSULTING PHYSICIAN: Giovanny Raza M.D. REFERRING PHYSICIAN: Ion Temple D.O. REASON FOR CONSULTATION: Hyperglycemia. HISTORY OF PRESENT ILLNESS: This is a 59-year-old man with history of HIV positivity without any history of diabetes, who was noted to have a glucose of 500 on lab draw. The patient is on dextrose infusion. Initially admitted to the hospital on 07/27/2019 with cough and chest congestion. CT chest ruled out PE, but is revealed interstitial pneumonia and he has been on treatment. The patient does not have any history of diabetes and his hemoglobin A1c is 5.9 per staff. PAST MEDICAL HISTORY: HIV. FAMILY HISTORY: Noncontributory. MEDICATIONS: Reviewed and reconciled. SOCIAL HISTORY: Tobacco use. REVIEW OF SYSTEMS: As HPI. MEDICATIONS: Reviewed and reconciled. LABORATORY VALUES: WBC 6.9, hemoglobin 12, hematocrit 38, platelets of 229. Sodium 139, potassium 3.9, chloride 106, bicarbonate 26, BUN 9, creatinine 1.1, glucose of 552. point of care glucoses are 86, 97, and 101. A1c of 5.9. PHYSICAL EXAMINATION: VITAL SIGNS: Blood pressure 142/69, pulse of 68, temperature 97.8, respiratory rate 17. HEENT: Pupils are reactive to light. Sclerae anicteric. NECK: No JVD. HEART: Regular. LUNGS: Crackles. ABDOMEN: Positive bowel sounds. EXTREMITIES: No clubbing, cyanosis, edema. DIAGNOSES: 1. Isolated episode of hyperglycemia. 2. A1c in the borderline diabetic range. 3. Pneumonia. 4. HIV. PLAN AND DISCUSSION: The patient's elevated glucose on the a.m. draw is an erroneous reading since the lab was drawn from the arm being infused with dextrose. The patient's glucose values are stable, hemoglobin A1c is 5.9, and also the patient's Accu-Cheks remained normal. We will discontinue the glucose monitoring. The patient is not diabetic, only borderline diabetes and does not require any oral medications. I will follow the patient during the hospital stay. I will sign off of the case. Thank you, Dr. Temple, for the courtesy of this consultation. Giovanny Raza M.D. DR: PAUL JOB#: [id number] CC: [email or web address]
--- NOTE | 2019-08-08 17:18 | NUR ---
NURSE NOTES: Patient discharged. PICC line removed and site covered. Personal belongings inventoried and sent with patient. ID band removed and disposed of. Patient needs met and patient kept comfortable at all times. Personal medications retrieved from the in patient pharmacy and sent with patient. Patient received new medications from [facility] pharmacy. patient departed with friend in personal vehicle.
[2019-08-08] MEDS ORDERED: Sterile Water Irrig 1000ml IRRIG ONE (17:58)
[2019-08-08] MEDS ORDERED: D5NS 1000ml IV ONE (17:58)
--- NOTE | 2019-08-09 20:42 | Diagnostic Imaging Report ---
APPROVED REPORT CPT Code: 93610 Present Symptoms Upper Extremity Pain: Left Comments: Edema BILATERAL UPPER EXTREMITY: Imaging reveals patency of the internal jugular, subclavian, axillary and brachial veins. The cephalic and basilic veins are also patent. Doppler indicates normal spontaneous flow within these venous segments, bilaterally.
--- NOTE | 2019-08-09 20:42 | Diagnostic Imaging Report ---
APPROVED REPORT CPT Code: 97792 Present Symptoms Lower Extremity Pain: Bilateral BILATERAL: Imaging reveals a patent deep venous system bilaterally. There is no evidence of thrombus within the common femoral, superficial femoral, popliteal or tibial segments. The greater saphenous veins are within normal limits. Doppler indicates normal spontaneous flow within these segments.
--- NOTE | 2019-08-10 16:40 | Discharge Summary ---
Discharge Summary Discharge Summary _ DATE OF ADMISSION: 07/27/2019 DATE OF DISCHARGE: 08/08/2019 DISCHARGED BY: Dr. Ion Temple CONSULTANTS: Dr. Elle Hernandez [facility] COURSE: Patient is a 59-year-old male, who lives at home, presented to ED due to shortness of breath x1 week. He has medical history of HIV. He had shortness of breath and wheezing. He denied palpitations, dizziness or headache. Denies blurred vision. He complained of fever and chills. Upon evaluation at the ED, he was slightly febrile. Blood work showed WBC 5.7. Hemoglobin 18.8, hematocrit 56. Creatinine was elevated to 1.4. BUN was 11. AST was elevated to 61. ALT normal. Troponin was negative. Urine toxicology positive for PCP, amphetamine and marijuana. Chest x-ray did not show any acute findings. CTA did not show any evidence of PE; patchy bilateral infiltrates. He was then admitted for atypical pneumonia. ID was consulted. Flu swab was negative. Blood culture was pending. He was given cefepime, vancomycin and azithromycin. He was followed by ip counsel. He was given respiratory treatment. GI was consulted for nausea. He was given Zofran. Diet was advanced as tolerated. Patient was taking Biktarvy for HIV. CD4 count was 666. He was still short of breath. Repeat chest x-ray showed unchanged. Echocardiogram showed EF 60% with mild diastolic dysfunction. There was reported emesis.. Patient was unable to tolerate food. He denied coffee-ground emesis. Emesis resolved. He then complained of bloody stools. Hepatitis screening was positive for hepatitis C.- He completed antibiotic treatment. He was observed off antibiotics. Sputum culture showed normal upper respiratory roverto. Blood culture did not isolate any growth. Patient had elevated d-dimer. He had left upper extremity swollen swelling. Venous duplex Was negative for DVT. He was given Keflex. Advised to elevate the arm. He had an episode of hyperglycemia with glucose level elevated to 500. Forging Die Finisher was consulted. Hemoglobin A1c was 5.9. Elevated glucose a.m. draw was erroneous since he was on from the arm being infused with dextrose. Hemoglobin A1c is 5.9. Accu-Chek normal. Per glycerine plant operator, patient has borderline diabetes and does not require any oral medication. He was cleared for discharge home, to continue p.o. Keflex 500 mg 4 times daily for 5 more days. FINAL DIAGNOSES: Atypical pneumonia Tobacco abuse Multiple drug abuse HIV Intractable nausea and vomiting Superficial phlebitis of the arm Protein calorie malnutrition Transaminitis MRSA screen positive DISPOSITION: Home with home health. All with he can see DISCHARGE MEDICATIONS: Refer to Discharge Medication List. DISCHARGE INSTRUCTIONS: Follow-up in a week. I have been assigned to complete a discharge summary on this account, I was not involved with the patient's management.--BLAKE Nick Jacqueline Robles NP Aug 10, 2019 16:40
--- NOTE | 2019-08-11 22:08 | Coder Physician Query ---
Clarification is required for compliance, coding accuracy, and to reflect severity of illness for this patient. Dear Dr. Ion Temple DO Date:08/11/19 Patient was admitted from the ER with fever and chills along with shortness of breath. Patient had no leukocytosis-WBC 5.7. Patient completed treatment with antibiotics and there was no growth in the blood culture. Patient was diagnosed with pneumonia. Patient is HIV positive. A diagnois of SEPSIS was made in the medical record on admission and in your progress notes. No mention of SEPSIS was made in the discharge summary. Upon review, it is difficult to determine whether this diagnosis has been ruled in, ruled out,or is still being worked up. Please indicate below the status of the aforementioned diagnosis. [] Treated and resolve [] Presumed and treated [] Currently under treatment [] Still being worked-up [] Ruled out Present on Admission: [] Yes [] No [] Clinically Undetermined Physician signature Date Please also document in your Progress Notes and/or Discharge Summary and indicate if the condition was present on admission. GUMAROD
== END 2019-08-08 17:59 | disposition home health service (06) | DRG 871 ==
LOC: EMR 12:30 → EDBEDREQ 14:44 → OBSVTOIN 15:31 → 2E 15:31 → EDBEDREQSVC 15:34 → EDBEDREQ 15:52 → 4E 07-29 18:09
PROC: 02HV33Z Insertion of Infusion Device into Superior Vena Cava, Percutaneous Approach (ICD-10-PCS; principal; 2019-08-06)
PROC: B518ZZA Fluoroscopy of Superior Vena Cava, Guidance (ICD-10-PCS; principal; 2019-08-06)
DX: A41.9 Sepsis, unspecified organism (principal); J18.9 Pneumonia, unspecified organism; E46 Unspecified protein-calorie malnutrition; J84.9 Interstitial pulmonary disease, unspecified; Z68.27 Body mass index [BMI] 27.0-27.9, adult; R62.7 Adult failure to thrive; F16.10 Hallucinogen abuse, uncomplicated; F12.10 Cannabis abuse, uncomplicated; F15.10 Other stimulant abuse, uncomplicated; Z72.0 Tobacco use; R73.9 Hyperglycemia, unspecified; Z22.322 Carrier or suspected carrier of Methicillin resistant Staphylococcus aureus; I50.9 Heart failure, unspecified; I80.8 Phlebitis and thrombophlebitis of other sites; R11.2 Nausea with vomiting, unspecified
CPT/HCPCS: 36415; 36569; 36600; 71045; 71275; 76700; 76937; 80048; 80053; 80069; 80202; 80307; 81003; 82150; 82803; 82962; 83036; 83605; 83690; 83735; 84100; 84484; 85007; 85025; 85379; 85610; 85651; 85730; 86140; 86360; 86705; 86709; 86710; 86803; 86850; 86900; 86901; 87040; 87070; 87081; 87205; 87340; 93005; 93306; 93970; 94640; 94664; 96365; 99285; J2405; J7620; J8499

== ENCOUNTER 2019-10-06 16:29 | Emergency (ER) | payer SELFPAY ==
[~2019-10-06] VITALS: Ht 175.3 cm; Wt 79.4 kg
[~2019-10-06 16:29] MED LIST: ACETAMINOPHEN325 M1 ORAL; ALBUTEROL SULF8.5 GM INH; CLONIDINE HCL0.1 MG PO; DIPHENHYDRAMINE25 M1 ORAL; GUAIFENESI100 MG/5 M ORAL; KEFLEX500 M1 ORAL; MIRALAX17 G2 ORAL; RESTORIL15 MG ORAL
--- NOTE | 2019-10-06 16:44 | NUR ---
ED Nurse Note: Patient walked into ED from home c/o flu like symptoms for 4 days. upon triage patient is afebrile, oral temp of 101.8F. patient is a/o x3 ambulatory, reports hx of HIV.
--- NOTE | 2019-10-06 16:52 | Emergency Room Report ---
History of Present Illness General Chief Complaint: Flu Like Symptoms Source: Patient Present Illness HPI Disclaimer: Please note that this report is being documented using [employer] technology. This can lead to erroneous entry secondary to incorrect interpretation by the dictating instrument. HPI: 59-year-old male with a history of HIV presents for evaluation of cough and fever. Symptoms been present for 4 days. Notes a nonproductive cough, subjective sweats and chills, mild aches and pains. Denies abdominal pain, vomiting or diarrhea. He is concerned as last time he was here he had atypical pneumonia and a prolonged hospital course. Has not taken any medication yet. Did not receive a flu shot this year. PMH: HIV, hepatitis C PSH: Reviewed Allergies: Allergy to fish noted Social Hx: Substance abuse, daily smoker Allergies: Coded Allergies: EGG (Verified Allergy, Intermediate, Hives, 07/30/19) SHELLFISH DERIVED (Verified Allergy, Intermediate, Shortness of Breath, ) SOB and hives Nursing Documentation-PMH Past Medical History: No History, Except For Hx Cardiac Problems: No - HIV Hx COPD: No - PNA Hx Cancer: No Hx Gastrointestinal Problems: No Hx Neurological Problems: No Review of Systems All Other Systems: negative except mentioned in HPI Physical Exam Vital Signs Date Time Temp Pulse Resp B/P (MAP) Pulse Ox O2 Delivery O2 Flow Rate FiO2 10/06/19 16:36 101.8 107 23 133/68 (89) 94 Room Air General: Awake and alert, no acute distress, febrile HEENT: NC/AT. EOMI. Cardiovascular: Tachycardic. S1 and S2 normal. No murmur appreciated Resp: Tachypnea. Normal work of breathing. No cough, wheezing or crackles appreciated Abdomen: Abdomen is soft, nondistended. Nontender Skin: Intact. No abrasions, laceration or rash over the exposed skin MSK: Normal tone and bulk. Moving all extremities. No obvious deformity. Neuro: Awake and alert. Mentating appropriately. Medical Decision Making Diagnostic Impression: Primary Impression: Influenza A ER Course 59-year-old male presents for evaluation of 4 days of fevers, cough, myalgias, arthralgias and overall feeling unwell. Differential includes was not limited to viral syndrome, influenza, pneumonia, dehydration, bronchitis, electrolyte abnormality. Will send CBC, CMP, chest x-ray, flu swabs. Advance work-up as needed. Patient given Tylenol for fever. Last CD4 count in our facility 666 on 07/30/2019. He is compliant with his antiviral medication Laboratory Tests Test 10/06/19 16:50 White Blood Count 8.8 K/UL (4.8-10.8) Red Blood Count 5.25 M/UL (4.70-6.10) Hemoglobin 16.4 G/DL (14.2-18.0) Hematocrit 47.1 % (42.0-52.0) Mean Corpuscular Volume 90 FL (80-99) Mean Corpuscular Hemoglobin 31.2 PG (27.0-31.0) H Mean Corpuscular Hemoglobin Concent 34.7 G/DL (32.0-36.0) Red Cell Distribution Width 10.8 % (11.6-14.8) L Platelet Count 260 K/UL (150-450) Mean Platelet Volume 6.1 FL (6.5-10.1) L Neutrophils (%) (Auto) 47.6 % (45.0-75.0) Lymphocytes (%) (Auto) 38.3 % (20.0-45.0) Monocytes (%) (Auto) 11.0 % (1.0-10.0) H Eosinophils (%) (Auto) 0.6 % (0.0-3.0) Basophils (%) (Auto) 2.5 % (0.0-2.0) H Sodium Level 138 MMOL/L (136-145) Potassium Level 3.8 MMOL/L (3.5-5.1) Chloride Level 102 MMOL/L (98-107) Carbon Dioxide Level 26 MMOL/L (21-32) Anion Gap 10 mmol/L (5-15) Blood Urea Nitrogen 11 mg/dL (7-18) Creatinine 1.2 MG/DL (0.55-1.30) Estimate Glomerular Filtration Rate > 60 mL/min (>60) Glucose Level 109 MG/DL (74-106) H Calcium Level 8.6 MG/DL (8.5-10.1) Total Bilirubin 0.6 MG/DL (0.2-1.0) Aspartate Amino Transferase (AST) 34 U/L (15-37) Alanine Aminotransferase (ALT) 49 U/L (12-78) Alkaline Phosphatase 80 U/L (46-116) Total Protein 8.5 G/DL (6.4-8.2) H Albumin 3.8 G/DL (3.4-5.0) Globulin 4.7 g/dL Albumin/Globulin Ratio 0.8 (1.0-2.7) L Microbiology Date/Time Source Procedure Growth Status 10/06/19 16:50 Nasal Nares - Final Complete 10/06/19 16:50 Nasal Nares - Final Complete Chest X-Ray Diagnostic Results Chest X-Ray Diagnostic Results : Chest X-Ray Ordered: Yes Indication: Shortness of Breath Interpretation: no effusion, no pneumothorax, other - Questionable atelectasis versus consolidation in the lower lobes Impression: Other - Atelectasis versus consolidation Electronically Signed by: Electronically signed by Dr. Mj Johns Reevaluation Time: 19:54 Last Vital Signs Date Time Temp Pulse Resp B/P (MAP) Pulse Ox O2 Delivery O2 Flow Rate FiO2 10/06/19 16:36 101.8 107 23 133/68 (89) 94 Room Air Reevaluation Impression Chest are concerning for possible infiltrate versus atelectasis and a CT was obtained. No evidence of pneumonia on CT. Patient positive for influenza A. Will be given Tamiflu given his comorbid conditions. And originally his fever persisted though it is now downtrending and the patient is feeling better. We discussed observation versus outpatient follow-up and the patient is directed for outpatient follow-up. We will start him on Tamiflu, prescribed NSAIDs for fever and aches and pains as well as Zofran for nausea. He will follow-up with his PMD. Discussed reasons to return to the emergency department. He understands and agrees with this treatment plan. Disposition: HOME, SELF-CARE Condition: Stable Scripts Oseltamivir Phosphate (Tamiflu) 75 Mg Capsule 75 MG ORAL TWICE A DAY for 5 Days, #10 CAP Prov: Mj Johns MD 10/06/19 Ondansetron Odt* (ZOFRAN ODT*) 4 Mg Tab.rapdis 4 MG BC EVERY 6 HOURS PRN for Nausea & Vomiting, #20 TAB 0 Refills Prov: Mj Johns MD 10/06/19 Ibuprofen* (MOTRIN*) 600 Mg Tablet 600 MG ORAL Q8H PRN for For Pain, #30 TAB 0 Refills Prov: Mj Johns MD 10/06/19 Acetaminophen* (ACETAMINOPHEN 325MG TABLET*) 325 Mg Tablet 650 MG ORAL Q4H PRN for Mild Pain/Temp > 100.5 for 5 Days, #30 TAB Prov: Mj Johns MD 10/06/19 Albuterol Sulfate* (ALBUTEROL SULFATE MDI*) 8.5 Gm Hfa.aer.ad 2 PUFF INH Q3H, #1 INH 0 Refills Prov: Mj Johns MD 10/06/19 Mj Johns MD Oct 06, 2019 16:52
[2019-10-06] MEDS ORDERED: Acetaminophen 500mg (ES) tab ORAL ONE (17:00)
[2019-10-06] MEDS ORDERED: BIKTARVY 50-201 EACH PO (17:05)
[2019-10-06 17:17] LABS: ANION GAP 10 mmol/L (5-15); BLOOD UREA NITROGEN 11 mg/dL (7-18); CALCIUM 8.6 MG/DL (8.5-10.1); CARBON DIOXIDE 26 MMOL/L (21-32); CHLORIDE 102 MMOL/L (98-107); CREATININE 1.2 MG/DL (0.55-1.30); POTASSIUM 3.8 MMOL/L (3.5-5.1); SODIUM 138 MMOL/L (136-145)
[2019-10-06 17:22] LABS: ALANINE AMINOTRANSFERASE 49 U/L (12-78); ALBUMIN 3.8 G/DL (3.4-5.0); ALBUMIN/GLOBULIN RATIO 0.8 (1.0-2.7); ALKALINE PHOSPHATASE 80 U/L (46-116); ASPARTATE AMINO TRANSFERASE 34 U/L (15-37); BASOPHILS % (AUTO) 2.5 % (0.0-2.0); BILIRUBIN,TOTAL 0.6 MG/DL (0.2-1.0); EOSINOPHILS % (AUTO) 0.6 % (0.0-3.0); HEMATOCRIT 47.1 % (42.0-52.0); HEMOGLOBIN 16.4 G/DL (14.2-18.0); LYMPHOCYTES % (AUTO) 38.3 % (20.0-45.0); MEAN CORPUSCULAR VOLUME 90 FL (80-99); NEUTROPHILS % (AUTO) 47.6 % (45.0-75.0); PLATELET COUNT 260 K/UL (150-450); RED BLOOD COUNT 5.25 M/UL (4.70-6.10); RED CELL DISTRIBUTION WIDTH 10.8 % (11.6-14.8); WHITE BLOOD COUNT 8.8 K/UL (4.8-10.8)
[2019-10-06] MEDS ORDERED: ONDANSETRON ODT4 MG BC (17:37)
[2019-10-06] MEDS ORDERED: ACETAMINOPHEN325 M1 ORAL (17:37)
[2019-10-06] MEDS ORDERED: ALBUTEROL SULF8.5 GM INH (17:37)
[2019-10-06] MEDS ORDERED: IBUPROFEN600 MG ORAL (17:37)
--- NOTE | 2019-10-06 17:54 | Diagnostic Imaging Report ---
Indication: Shortness of breath Technique: One view of the chest Comparison: 07/31/2019 Findings: There is some atelectasis at the left lung base and in the left suprahilar region, also evident previously. There is mild central bronchial wall thickening. No definite acute infiltrates, effusions, or congestion. The heart size is normal. Impression: Atelectatic changes. No definite acute process otherwise
--- NOTE | 2019-10-06 18:14 | NUR ---
ED Nurse Note: notified to Dr. Johns that patient has allergic reaction to shellfish derived, rxn is rash. patient provided with a mask, went to CT scan.
[2019-10-06] MEDS ORDERED: Omnipaque-300 100ml vial INJ ONE (18:15)
[2019-10-06 18:16] VITALS: BP 127/69
[2019-10-06] MEDS ORDERED: Oseltamivir 75mg cap ORAL ONE (18:30)
--- NOTE | 2019-10-06 18:47 | NUR ---
ED Nurse Note: patient's oral temp still 102.6F, notified to Dr. Johns.
--- NOTE | 2019-10-06 18:57 | Diagnostic Imaging Report ---
Clinical Indication: Cough and fever Technique: IV administration nonionic contrast. Spiral acquisition obtained through the chest. Multiplanar reconstructions generated. Total dose length product 822 mGycm. CTDIvol(s) 21, 45, 16 mGy. Dose reduction achieved using automated exposure control Comparison: Chest CT angiogram dated 07/27/2019 Findings: There is some image degradation due to motion artifact. There is mild interstitial septal thickening of the upper lobes. Increased attenuation is seen in the posterior upper lobes adjacent to the major fissures bilaterally. Small patchy areas of consolidation are seen in the inferior left lower lobe and the posterior medial right lower lobe. These are smaller than on the prior study. Nodularity seen on the prior exam is not currently evident. No effusions. No masses or nodules. The heart is borderline enlarged, and demonstrates left ventricular muscular thickening. No mediastinal or hilar mass or adenopathy. No pericardial effusion. The included portions of the thyroid are unremarkable. There is a small sliding-type hiatal hernia. No axillary or chest wall mass or adenopathy. The bones demonstrate fairly extensive proliferative changes of the thoracic spine. The included upper abdominal anatomy is unremarkable. Impression: Patchy basilar consolidative opacities bilaterally, may reflect areas of inflammation, versus postinflammatory changes. These are much smaller than seen on prior study of 07/27/2019 Mild nonspecific interstitial septal thickening Posterior upper lobe opacities bilaterally, probably areas of dependent atelectasis Borderline cardiomegaly with evidence of left ventricular lesser thickening Small sliding-type hiatal hernia Degenerative spondylosis This essentially agrees with the preliminary interpretation provided overnight by [facility], with some minor variations. The CT scanner at [facility] is accredited by the [employer] and the scans are performed using protocols designed to limit radiation exposure to as low as reasonably achievable to attain images of sufficient resolution adequate for diagnostic evaluation.
--- NOTE | 2019-10-06 19:08 | NUR ---
HAND-OFF: Report given to Eva CABRERA
[2019-10-06 19:15] VITALS: BP 132/70
--- NOTE | 2019-10-06 19:21 | NUR ---
ED Nurse Note: recieved pt from [facility]. pt is resting in bed. oral temp recheck is 101. will continue to monitor pt
[2019-10-06 19:49] VITALS: BP 122/71
[2019-10-06] MEDS ORDERED: TAMIFLU75 MG ORAL (19:53)
[2019-10-06 20:00] VITALS: BP 122/71
--- NOTE | 2019-10-06 20:00 | NUR ---
ER DISCHARGE NOTE: Patient is cleared to be discharged per ERMD, pt is aox4, on room air, with stable vital signs. pt was given dc and prescription instructions, pt was able to verbalize understanding of teachings, pt id band and iv site removed without complications. pt is able to ambulate with steady gait. pt took all belongings.
== END 2019-10-06 20:00 | disposition home or self-care (01) ==
LOC: EMR 17:28
DX: J09.X2 Influenza due to identified novel influenza A virus with other respiratory manifestations (principal); B20 Human immunodeficiency virus [HIV] disease; Z86.19 Personal history of other infectious and parasitic diseases; Z91.012 Allergy to eggs; Z91.013 Allergy to seafood; F17.210 Nicotine dependence, cigarettes, uncomplicated
CPT/HCPCS: 36415; 71045; 71260; 80053; 85025; 86710; 96360; 99284; Q9967